=== PATIENT | female | born 1960 | race Caucasian/White ===

== ENCOUNTER 2021-04-05 12:59 | Inpatient (IN) ==
[2021-04-05] MEDS ORDERED: NS 1000 ML 1,000 ML IV ONE (13:06)
[2021-04-05] MEDS ORDERED: NS 1000 ML 1,000 ML ONE (13:12)
--- NOTE | 2021-04-05 13:12 | DR.URIAD ---
HPI Time Seen Time Seen by Provider: 04/05/21 13:14 Complaint Chief Complaint Doctors Comments: 61 y/o female, diagnosed with Covid last week, had worsening cough, dx'd with pneumonia. Is on azithromycin, inhaler. + h/o COPD. COVID-19 Coronavirus risk:travel/contact w/high risk person: No Has patient experienced Coronavirus symptoms: Yes Coronavirus symptoms experienced: Fever, Coughing and Shortness of Breath Reviewed Nurses Notes Reviewed: Yes Source History Provided: Patient Mode of Arrival Mode of Arrival: Ambulatory Context Recent Treated Infections: Pneumonia Quality Quality of Cough: Nonproductive Rhinorrhea: Clear Shortness of Breath: Moderate Associated Signs and Symptoms Other Signs and Symptoms: Cough, Diarrhea, Fever, Myalgias, Nausea and Shortness of Breath PMH Travel Risk Coronavirus risk:travel/contact w/high risk person: No Has patient experienced Coronavirus symptoms: No ROS Review of Systems Constitutional: Chills, Fever, Malaise and Weakness Eyes: No Symptoms Reported ENTM: No Symptoms Reported Respiratoy: Dry Cough and Short of Breath Cardiovascular: No Symptoms Reported and See HPI; negative Chest Pain Gastrointestinal/Abdominal: Diarrhea and Nausea Genitourinary: No Symptoms Reported Neurological: Weakness Musculoskeletal: Muscle Pain Integumentary: No Symptoms Reported Hematologic/Lymphatic: No Symptoms Reported Endocrine: No Symptoms Reported Psychiatric: No Symptoms Reported All Other Systems: Reviewed and Negative PE Vital Signs Vitals: Temperature 100.1 F Pulse Rate 94 Respiratory Rate 82 Blood Pressure 155/74 O2 Sat by Pulse Oximetry 90 General Limitations: No Limitations General Appearance: Alert, In No Apparent Distress and Other (+ frequent dry cough) Head Head Exam: Normal Inspection Eyes Eye exam: Normal Appearance ENT ENT Exam: Normal Exam and Mucous Membranes Moist TM/Canal Exam: Bilateral: Normal Nose Exam: Normal Nose Exam Mouth Exam: Normal Inspection Throat Exam: Normal Inspection Neck Neck Exam: Normal Inspection and Full ROM; negative Meningismus Chest Chest Inspection: Normal Inspection Respiratory Respiratory Exam: negative Accessory Muscle Use Respiratory Exam: Bilateral: Wheezing (expiratory) Cardiovascular Cardiovascular Exam: Regular Rate, Normal Rhythm, Tachycardia and Normal Heart Sounds Abdominal Exam Abdominal Exam: Normal Inspection Extremeties Extremities Exam: Normal Inspection and Full ROM; negative Edema Back Back Exam: Normal Inspection Neurologic Neurological Exam: Alert, Oriented X3 and CN II-XII Intact; negative Motor Sensory Deficit Psychiatric Psychiatric Exam: Normal Affect Skin Skin Exam: Warm and Dry MDM Differential Diagnosis Differential Diagnosis: Pneumonia (covid pneumonia) and URI COURSE Treatment Treatment: Pt with diagnosis of Covid last week, having worsening dyspnea. W/u initiated. ABG low - pO2 51, 88% on RA. Doing better on O2. + hypoxia, developing pneumonia. Recommend admission. Discussed with hospitalist, Dr. Davies. She accepts the admission. ROR Labs Reviewed Laboratory Results Reviewed?: Yes Result Diagrams: 04/05/21 13:22 04/05/21 13:22 Laboratory: WBC 4.2 X10^3/uL (3.6-10.0) 04/05/21 13:22 RBC 4.83 X10^6/uL (3.5-5.4) 04/05/21 13:22 Hgb 13.9 g/dL (12.0-16.0) 04/05/21 13:22 Hct 42.0 % (36.0-47.0) 04/05/21 13:22 MCV 87.1 fL (80.0-100.0) 04/05/21 13:22 MCH 28.8 pg (27.0-34.0) 04/05/21 13:22 MCHC 33.1 g/dL (33.0-35.0) 04/05/21 13:22 RDW 14.4 % (11.6-16.5) 04/05/21 13:22 Plt Count 227 X10^3/uL (150.0-450.0) 04/05/21 13:22 MPV 8.0 fL (7.4-11.0) 04/05/21 13:22 Neut % (Auto) 81.5 % (42.0-75.0) H 04/05/21 13:22 Lymph % (Auto) 14.9 % (21.0-51.0) L 04/05/21 13:22 [place] % (Auto) 3.5 % (0.0-13.0) 04/05/21 13:22 Eos % (Auto) 0.0 % (0.9-2.9) L 04/05/21 13:22 Baso % (Auto) 0.1 % (0.2-1.0) L 04/05/21 13:22 Neut # (Auto) 3.4 x10^3/uL (2.2-4.8) 04/05/21 13:22 Lymph # (Auto) 0.6 X10^3/uL (1.3-2.9) L 04/05/21 13:22 [place] # (Auto) 0.1 x10^3/uL (0.3-0.8) L 04/05/21 13:22 Eos # (Auto) 0.0 x10^3/uL (0.0-0.2) 04/05/21 13:22 Baso # (Auto) 0.0 X10^3/uL (0.0-0.1) 04/05/21 13:22 Absolute Nucleated RBC 0.1 /100WBC 04/05/21 13:22 Sample Site Right radial 04/05/21 13:29 ABG pH 7.470 (7.35-7.45) H 04/05/21 13:29 ABG pCO2 32.0 mmHg (35.0-45.0) L 04/05/21 13:29 ABG pO2 51.0 mmHg (80.0-100.0) L 04/05/21 13:29 ABG HCO3 23.3 mmol/L (22-26) 04/05/21 13:29 ABG O2 Saturation 88.0 % (90-100) L 04/05/21 13:29 ABG Base Excess 0.2 mmol/L (-2.0-2.0) 04/05/21 13:29 Ed Test Pos 04/05/21 13:29 A-a Gradient 59.0 mmHg 04/05/21 13:29 FiO2 21.0 04/05/21 13:29 Blood Gas Comments Tio well eb 04/05/21 13:29 Sodium 138 mmol/L (136-145) 04/05/21 13:22 Corrected Sodium 139 mmol/L (136-145) 04/05/21 13:22 Potassium 3.9 mmol/L (3.5-5.1) 04/05/21 13:22 Chloride 102 mmol/L (98-107) 04/05/21 13:22 Carbon Dioxide 22.2 mmol/L (21-32) 04/05/21 13:22 BUN 7 mg/dL (7-18) 04/05/21 13:22 Creatinine 0.89 mg/dL (0.55-1.02) 04/05/21 13:22 Est GFR (MDRD) Af Amer > 60 (>60) 04/05/21 13:22 Est GFR (MDRD) Non-Af > 60 (>60) 04/05/21 13:22 Glucose 123 mg/dL (65-99) H 04/05/21 13:22 Lactic Acid 1.2 mmol/L (0.4-2.0) 04/05/21 13:22 Calcium 7.7 mg/dL (8.5-10.1) L 04/05/21 13:22 Corrected Calcium 8.7 mg/dL (8.5-10.1) 04/05/21 13:22 Total Bilirubin 0.30 mg/dL (0.2-1.0) 04/05/21 13:22 AST 134 Units/L (15-37) H 04/05/21 13:22 ALT 133 Units/L (12-78) H 04/05/21 13:22 Alkaline Phosphatase 53 Units/L (46-116) 04/05/21 13:22 Creatine Kinase 169 Units/L (26-192) 04/05/21 13:22 CK-MB (CK-2) 1.1 ng/mL (0-4.0) 04/05/21 13:22 CK/CKMB % Calc 0.7 % (<4) 04/05/21 13:22 Troponin I < 0.02 ng/mL (0-1.5) 04/05/21 13:22 Total Protein 6.5 g/dL (6.4-8.2) 04/05/21 13:22 Albumin 2.8 g/dL (3.4-5.0) L 04/05/21 13:22 Globulin 3.7 g/dL (2.5-4.5) 04/05/21 13:22 Albumin/Globulin Ratio 0.8 Ratio (1.1-2.1) L 04/05/21 13:22 Lipase 368 Units/L (73-393) 04/05/21 13:22 Specimen Type Clean catch urine 04/05/21 13:24 Urine Color Straw (YELLOW) 04/05/21 13:24 Urine Appearance Clear (CLEAR) 04/05/21 13:24 Urine pH 7.0 (5.0 - 8.0) 04/05/21 13:24 Ur Specific [place] 1.010 (1.000-1.030) 04/05/21 13:24 Urine Protein 1+ (NEGATIVE) 04/05/21 13:24 Urine Glucose (UA) Negative (NEGATIVE) 04/05/21 13:24 Urine Ketones Negative (NEGATIVE) 04/05/21 13:24 Urine Occult Blood 1+ (NEGATIVE) 04/05/21 13:24 Urine Nitrite Negative (NEGATIVE) 04/05/21 13:24 Urine Bilirubin Negative (NEGATIVE) 04/05/21 13:24 Urine Urobilinogen Normal (NORMAL) 04/05/21 13:24 Ur Leukocyte Esterase Negative (NEGATIVE) 04/05/21 13:24 Urine RBC 5-10 /HPF (0-3) A 04/05/21 13:24 Urine WBC 0-2 /HPF (0-5) 04/05/21 13:24 Ur Squamous Epith Cells Few /HPF (NEGATIVE) 04/05/21 13:24 Amorphous Sediment Trace /HPF (NEGATIVE) 04/05/21 13:24 Urine Bacteria Trace /HPF (NEGATIVE) 04/05/21 13:24 Ur Culture Indicated? No/not indicated 04/05/21 13:24 SARS-CoV-2 (PCR) Positive (NEGATIVE) A 04/05/21 13:45 Influenza Type A (PCR) Negative (NEGATIVE) 04/05/21 13:45 Influenza Type B (PCR) Negative (NEGATIVE) 04/05/21 13:45 RSV (PCR) Negative (NEGATIVE) 04/05/21 13:45 SARS CoV-2 RNA Rapid OLYA Positive (NEGATIVE) A 04/05/21 13:24 EKG Rate: 78 [place]: Normal Rhythm: NSR Block: None Hypertrophy: None ST: Nonsp Opioid Opioid Risk Tool Age (Jose J box if 16-45): No History of Preadolescent Sexual Abuse: No Total: 0 Total Score Risk Category: Low Risk Copyright: Zak DANIELSON predicting aberrant behaviors Diagnosis Discharge Problem: Pneumonia due to COVID-19 virus, Hypoxia
[2021-04-05 13:35] LABS: ABG ALLEN TEST POS; ABG BASE EXCESS 0.2 mmol/L (-2.0-2.0); ABG HCO3 23.3 mmol/L (22-26)
[2021-04-05 13:50] LABS: BILIRUBIN,URINE NEGATIVE (NEGATIVE); BLOOD/HEMOGLOBIN,URINE 1+ (NEGATIVE); GLUCOSE, URINE NEGATIVE (NEGATIVE); KETONES,URINE NEGATIVE (NEGATIVE); LEUKOCYTE ESTERASE ,URINE NEGATIVE (NEGATIVE); NITRITES,URINE NEGATIVE (NEGATIVE); PROTEIN,URINE 1+ (NEGATIVE); UROBILINOGEN,URINE NORMAL (NORMAL)
--- NOTE | 2021-04-05 13:59 | RAD ---
HISTORYCOUGH, DYSPNEA, COVID POSITIVE X 7 DAYS AGO HTN, HYSTERECTOMYSTUDYCHEST, 1 VIEWCOMPARISONNone available.FINDINGSThe trachea is midline. The cardiac silhouette is unremarkable. The lungs demonstrate diffuse, patchy, airspace, ground-glass, and interstitial disease seen throughout the lung hope which would be compatible with an active COVID-19 infection/pneumonia on this exam. The bony thorax is unremarkable.IMPRESSIONChest findings of an active and diffuse COVID-19 infection/pneumonia.Electronically signed by: AYDEN MARTINEZ III (Apr 05, 2021 13:58:07)
[2021-04-05 14:03] LABS: AMORPHOUS SEDIMENT,UR TRACE /HPF (NEGATIVE); APPEARANCE,URINE CLEAR (CLEAR); BACTERIA,URINE TRACE /HPF (NEGATIVE); COLOR,URINE STRAW (YELLOW); SQUAMOUS EPITHELIAL CELL,UR FEW /HPF (NEGATIVE)
[2021-04-05 14:04] LABS: BASOPHILS % (AUTO) 0.1 % (0.2-1.0); HEMOGLOBIN 13.9 g/dL (12.0-16.0); LYMPHOCYTES # (AUTO) 0.6 X10^3/uL (1.3-2.9); LYMPHOCYTES % (AUTO) 14.9 % (21.0-51.0); MEAN CORPUSCULAR HEMOGLOBIN 28.8 pg (27.0-34.0); MEAN CORPUSCULAR HGB CONC 33.1 g/dL (33.0-35.0); MEAN CORPUSCULAR VOLUME 87.1 fL (80.0-100.0); MONOCYTES # (AUTO) 0.1 x10^3/uL (0.3-0.8); MONOCYTES % (AUTO) 3.5 % (0.0-13.0); NEUTROPHILS # (AUTO) 3.4 x10^3/uL (2.2-4.8); NEUTROPHILS % (AUTO) 81.5 % (42.0-75.0); PLATELET COUNT 227 X10^3/uL (150.0-450.0); RED BLOOD COUNT 4.83 X10^6/uL (3.5-5.4); RED CELL DISTRIBUTION WIDTH 14.4 % (11.6-16.5); WHITE BLOOD COUNT 4.2 X10^3/uL (3.6-10.0)
[2021-04-05 14:22] LABS: BLOOD UREA NITROGEN 7 mg/dL (7-18); CALCIUM 7.7 mg/dL (8.5-10.1); CARBON DIOXIDE 22.2 mmol/L (21-32); CHLORIDE 102 mmol/L (98-107); COR NA(FOR HYPERGLY) 139 mmol/L (136-145); CREATININE 0.89 mg/dL (0.55-1.02); SODIUM 138 mmol/L (136-145); eGFR NON BLACK RACES > 60 (>60)
[2021-04-05 14:25] LABS: LACTIC ACID 1.2 mmol/L (0.4-2.0)
[2021-04-05 15:03] LABS: CKMB % 0.7 % (<4); CREATINE KINASE 169 Units/L (26-192); CREATINE KINASE MB 1.1 ng/mL (0-4.0)
[2021-04-05 15:04] LABS: LIPASE 368 Units/L (73-393); TROPONIN I < 0.02 ng/mL (0-1.5)
[2021-04-05 15:29] LABS: ALANINE AMINOTRANSFERASE 133 Units/L (12-78); ALBUMIN 2.8 g/dL (3.4-5.0); ALKALINE PHOSPHATASE 53 Units/L (46-116); ASPARTATE AMINO TRANSFERASE 134 Units/L (15-37); COR CA(FOR HYPOALB) 8.7 mg/dL (8.5-10.1); TOTAL PROTEIN 6.5 g/dL (6.4-8.2)
[2021-04-05] MEDS ORDERED: ZOFRAN INJ 4 MG VIAL IVP ONE (15:41)
[2021-04-05] MEDS ORDERED: ZOFRAN INJ 4 MG VIAL ONE (16:10)
[2021-04-05] MEDS ORDERED: REMDESIVIR 200 MG in NS 250 ML IV 250 ML IV ONE (17:11)
[2021-04-05] MEDS ORDERED: REMDESIVIR IV ONE ×2 (17:23→17:25)
[2021-04-05] MEDS ORDERED: NS 250 ML IV 250 ML IV ONE (17:25)
[2021-04-05] MEDS ORDERED: PHARMACY CONSULT - IVERMECTIN XX SCH (18:00)
[2021-04-05] MEDS: SOLU-Medrol 40 MG VIAL IVP SCH (20:47)
[2021-04-05] MEDS ORDERED: TYLENOL 325 MG TAB PO ONE (20:54)
[2021-04-05] MEDS ORDERED: THIAMINE HCL INJ IVP SCH (21:00)
[2021-04-05] MEDS ORDERED: MELATONIN PO SCH (21:00)
[2021-04-05] MEDS ORDERED: IVERMECTIN PO SCH (21:00)
[2021-04-05] MEDS: BROVANA IN SCH (21:06)
[2021-04-05] MEDS: PULMICORT NEB TX 0.5 MG NEB SCH (21:16)
[2021-04-05] MEDS: ZOSYN VIAL 2.25 GRAMS 2.25 G in NS 100 ML IV + SPIKE MINIBAG* 100 ML IV SCH ×2 (21:20→21:30)
[2021-04-05] MEDS: NS 1000 ML 1,000 ML IV SCH (21:20)
[2021-04-05] MEDS: ASCORBIC ACID INJ MULTI-DOSE VIAL 1,500 MG in NS 100 ML IV 100 ML IV SCH (21:21)
[2021-04-05] MEDS: TYLENOL 325 MG TAB PO PRN (21:21)
[2021-04-05] MEDS: LOVENOX INJ 30 MG SYR SC SCH (21:22)
[2021-04-05] MEDS: TESSALON PERLES PO PRN (21:23)
[2021-04-05] MEDS: ZINC SULFATE PO SCH (21:23)
[2021-04-05] MEDS: PEPCID TAB 40 MG PO SCH (21:23)
[2021-04-05] MEDS: VENTOLIN or PROAIR HFA IN SCH (22:19)
[2021-04-06] MEDS: ASCORBIC ACID INJ MULTI-DOSE VIAL 1,500 MG in NS 100 ML IV 100 ML IV SCH ×4 (03:15→20:17)
[2021-04-06] MEDS: SOLU-Medrol 40 MG VIAL IVP SCH (04:14)
[2021-04-06] MEDS: ZOSYN VIAL 2.25 GRAMS 2.25 G in NS 100 ML IV + SPIKE MINIBAG* 100 ML IV SCH ×3 (06:10→21:10)
[2021-04-06 06:34] LABS: BASOPHILS % (AUTO) 0 % (0.2-1.0); HEMATOCRIT 43.6 % (36.0-47.0); HEMOGLOBIN 14.4 g/dL (12.0-16.0); LYMPHOCYTES % (AUTO) 17.8 % (21.0-51.0); MEAN CORPUSCULAR HEMOGLOBIN 28.7 pg (27.0-34.0); MEAN CORPUSCULAR VOLUME 86.9 fL (80.0-100.0); MEAN PLATELET VOLUME 7.7 fL (7.4-11.0); MONOCYTES # (AUTO) 0.3 x10^3/uL (0.3-0.8); MONOCYTES % (AUTO) 5.3 % (0.0-13.0); NEUTROPHILS # (AUTO) 4.3 x10^3/uL (2.2-4.8); NEUTROPHILS % (AUTO) 76.9 % (42.0-75.0); PLATELET COUNT 240 X10^3/uL (150.0-450.0); RED BLOOD COUNT 5.02 X10^6/uL (3.5-5.4); RED CELL DISTRIBUTION WIDTH 14.7 % (11.6-16.5); WHITE BLOOD COUNT 5.6 X10^3/uL (3.6-10.0)
[2021-04-06 06:45] LABS: ALANINE AMINOTRANSFERASE 107 Units/L (12-78); ALBUMIN 2.4 g/dL (3.4-5.0); ALKALINE PHOSPHATASE 49 Units/L (46-116); ASPARTATE AMINO TRANSFERASE 121 Units/L (15-37); BLOOD UREA NITROGEN 8 mg/dL (7-18); CALCIUM 7.3 mg/dL (8.5-10.1); CARBON DIOXIDE 19.6 mmol/L (21-32); CHLORIDE 107 mmol/L (98-107); COR CA(FOR HYPOALB) 8.6 mg/dL (8.5-10.1); CREATININE 0.73 mg/dL (0.55-1.02); SODIUM 140 mmol/L (136-145); TOTAL PROTEIN 6.2 g/dL (6.4-8.2); TROPONIN I 0.02 ng/mL (0-1.5); eGFR NON BLACK RACES > 60 (>60)
[2021-04-06] MEDS: ZOFRAN TAB 4 MG PO PRN ×2 (07:45→15:00)
[2021-04-06] MEDS ORDERED: VITAMIN A PO SCH (09:00)
[2021-04-06] MEDS ORDERED: VITAMIN D (1.25MG) PO SCH (09:00)
[2021-04-06] MEDS ORDERED: LIPITOR TAB 80 MG PO SCH (09:00)
[2021-04-06] MEDS ORDERED: TRICOR TAB 160 MG PO SCH (09:00)
[2021-04-06] MEDS: BROVANA IN SCH ×2 (09:17→23:22)
[2021-04-06] MEDS: PULMICORT NEB TX 0.5 MG NEB SCH ×2 (09:26→23:22)
[2021-04-06] MEDS: VENTOLIN or PROAIR HFA IN SCH ×4 (09:32→23:22)
[2021-04-06] MEDS ORDERED: ZESTRIL TAB 20 MG ONE (09:33)
--- NOTE | 2021-04-06 09:36 | DR.H&P ---
H&P History & Physical for Day of: H&P Date: 04/06/21 Chief Complaint Chief Complaint: SOB, weakness, diarrhea Allergies Allergies Allergy/AdvReac Type Severity Reaction Status Date / Time cortisone Allergy Verified 04/05/21 13:11 meperidine [From Demerol] Allergy Verified 04/05/21 13:11 phenobarbital Allergy Verified 04/05/21 13:11 History of Present Illness History of Present Illness: Ms. Wyatt is a 61y/o female with a PMH of HTN presented with worsening dyspnea, cough and generalized weakness. Patient tested positive for COVID last week but continued to get worse. She reports having N/V/D and poor oral intake. She also reports fever and chills. Denies prev hx of covid infection, unvaccinated. She reports exposure at work. She was on 3L NC but sats were in the 70s so increased O2 to 5L at sats improved to high 80s. Patient had just gotten back in bed after using the bathroom. ER work up - WBC 5.6 BUN/Cr: 8/0.73 Glucose 104 Trop x 2 (-) Elevated d-dimer AST/ALT: 121/107 - ABG 7.47/32/51/23 sats 88% on RA - COVID-19: positive - CXR: suggestive of covid pneumonia Plan: will get a CTA to rule out PE. Continue ICU protocol for COVID-19, continue telemetry. Continue Zosyn and Remdesivir. Patient refused solumedrol due to being allergic to cortisone. Resume home medications. Check stool studies to rule out infection. Start gentle hydration. Continue vitamin support and lovenox. Wean O2 as tolerated to keep sats > 92%. Monitor AM labs/imaging. Time spent for clinical assessment, reviewing labs/imaging, physical exam, dec ision making and documentation greater than 75 mins. Past Medical History Past Medical History: Depression and Hypertension Past Surgical History Surgical History: Hysterectomy and Other Family History Family Medical History: Diabetes Mellitus, Cancer, Coronary Artery Disease and Hypertension Social History Does patient currently use any type of tobacco product: No Have you used tobacco products in the last 12 months: No Type of Tobacco Use: Cigarettes How many years tobacco product used: 20 Does any household member use tobacco: No Alcohol Use: None Drug Use: None Prescription drug monitoring program results: PDMP reviewed and no concerns identified Medications Home Medications: cortisone Allergy (Verified 04/05/21 13:11) meperidine [From Demerol] Allergy (Verified 04/05/21 13:11) phenobarbital Allergy (Verified 04/05/21 13:11) CONTINUE taking the following medications albuterol sulfate 2 puff INHALATION QID 04/05/21 [History] aspirin 81 mg PO DAILY 04/05/21 [History] azithromycin 250 mg PO DAILY 04/05/21 [History] benzonatate 100 mg PO TID PRN 04/05/21 [History] ezetimibe 10 mg PO DAILY 04/05/21 [History] levocetirizine 5 mg PO DAILY 04/05/21 [History] lisinopril 20 mg PO DAILY 04/05/21 [History] ondansetron 4 mg PO QID PRN 04/05/21 [History] paroxetine HCl mg PO 04/05/21 [History] promethazine-DM ml 04/05/21 [History] Labs Result Diagrams: 04/06/21 06:16 04/06/21 06:16 Labs: Laboratory WBC 5.6 X10^3/uL (3.6-10.0) 04/06/21 06:16 RBC 5.02 X10^6/uL (3.5-5.4) 04/06/21 06:16 Hgb 14.4 g/dL (12.0-16.0) 04/06/21 06:16 Hct 43.6 % (36.0-47.0) 04/06/21 06:16 MCV 86.9 fL (80.0-100.0) 04/06/21 06:16 MCH 28.7 pg (27.0-34.0) 04/06/21 06:16 MCHC 33.0 g/dL (33.0-35.0) 04/06/21 06:16 RDW 14.7 % (11.6-16.5) 04/06/21 06:16 Plt Count 240 X10^3/uL (150.0-450.0) 04/06/21 06:16 MPV 7.7 fL (7.4-11.0) 04/06/21 06:16 Neut % (Auto) 76.9 % (42.0-75.0) H 04/06/21 06:16 Lymph % (Auto) 17.8 % (21.0-51.0) L 04/06/21 06:16 [place] % (Auto) 5.3 % (0.0-13.0) 04/06/21 06:16 Eos % (Auto) 0.0 % (0.9-2.9) L 04/06/21 06:16 Baso % (Auto) 0 % (0.2-1.0) L 04/06/21 06:16 Neut # (Auto) 4.3 x10^3/uL (2.2-4.8) 04/06/21 06:16 Lymph # (Auto) 1.0 X10^3/uL (1.3-2.9) L 04/06/21 06:16 [place] # (Auto) 0.3 x10^3/uL (0.3-0.8) 04/06/21 06:16 Eos # (Auto) 0.0 x10^3/uL (0.0-0.2) 04/06/21 06:16 Baso # (Auto) 0.0 X10^3/uL (0.0-0.1) 04/06/21 06:16 Absolute Nucleated RBC 0.0 /100WBC 04/06/21 06:16 D-Dimer 1.17 ug/ml (0.0-0.57) H* 04/06/21 08:28 Sample Site Right radial 04/05/21 13:29 ABG pH 7.470 (7.35-7.45) H 04/05/21 13:29 ABG pCO2 32.0 mmHg (35.0-45.0) L 04/05/21 13:29 ABG pO2 51.0 mmHg (80.0-100.0) L 04/05/21 13:29 ABG HCO3 23.3 mmol/L (22-26) 04/05/21 13:29 ABG O2 Saturation 88.0 % (90-100) L 04/05/21 13:29 ABG Base Excess 0.2 mmol/L (-2.0-2.0) 04/05/21 13:29 Ed Test Pos 04/05/21 13:29 A-a Gradient 59.0 mmHg 04/05/21 13:29 FiO2 21.0 04/05/21 13:29 Blood Gas Comments Tio well eb 04/05/21 13:29 Sodium 140 mmol/L (136-145) 04/06/21 06:16 Corrected Sodium TNP 04/06/21 06:16 Potassium 3.8 mmol/L (3.5-5.1) 04/06/21 06:16 Chloride 107 mmol/L (98-107) 04/06/21 06:16 Carbon Dioxide 19.6 mmol/L (21-32) L 04/06/21 06:16 BUN 8 mg/dL (7-18) 04/06/21 06:16 Creatinine 0.73 mg/dL (0.55-1.02) 04/06/21 06:16 Est GFR (MDRD) Af Amer > 60 (>60) 04/06/21 06:16 Est GFR (MDRD) Non-Af > 60 (>60) 04/06/21 06:16 Glucose 104 mg/dL (65-99) H 04/06/21 06:16 Lactic Acid 1.2 mmol/L (0.4-2.0) 04/05/21 13:22 Calcium 7.3 mg/dL (8.5-10.1) L 04/06/21 06:16 Corrected Calcium 8.6 mg/dL (8.5-10.1) 04/06/21 06:16 Total Bilirubin 0.30 mg/dL (0.2-1.0) 04/06/21 06:16 AST 121 Units/L (15-37) H 04/06/21 06:16 ALT 107 Units/L (12-78) H 04/06/21 06:16 Alkaline Phosphatase 49 Units/L (46-116) 04/06/21 06:16 Creatine Kinase 169 Units/L (26-192) 04/05/21 13:22 CK-MB (CK-2) 1.1 ng/mL (0-4.0) 04/05/21 13:22 CK/CKMB % Calc 0.7 % (<4) 04/05/21 13:22 Troponin I 0.02 ng/mL (0-1.5) 04/06/21 06:16 Total Protein 6.2 g/dL (6.4-8.2) L 04/06/21 06:16 Albumin 2.4 g/dL (3.4-5.0) L 04/06/21 06:16 Globulin 3.8 g/dL (2.5-4.5) 04/06/21 06:16 Albumin/Globulin Ratio 0.6 Ratio (1.1-2.1) L 04/06/21 06:16 Lipase 368 Units/L (73-393) 04/05/21 13:22 Specimen Type Clean catch urine 04/05/21 13:24 Urine Color Straw (YELLOW) 04/05/21 13:24 Urine Appearance Clear (CLEAR) 04/05/21 13:24 Urine pH 7.0 (5.0 - 8.0) 04/05/21 13:24 Ur Specific [place] 1.010 (1.000-1.030) 04/05/21 13:24 Urine Protein 1+ (NEGATIVE) 04/05/21 13:24 Urine Glucose (UA) Negative (NEGATIVE) 04/05/21 13:24 Urine Ketones Negative (NEGATIVE) 04/05/21 13:24 Urine Occult Blood 1+ (NEGATIVE) 04/05/21 13:24 Urine Nitrite Negative (NEGATIVE) 04/05/21 13:24 Urine Bilirubin Negative (NEGATIVE) 04/05/21 13:24 Urine Urobilinogen Normal (NORMAL) 04/05/21 13:24 Ur Leukocyte Esterase Negative (NEGATIVE) 04/05/21 13:24 Urine RBC 5-10 /HPF (0-3) A 04/05/21 13:24 Urine WBC 0-2 /HPF (0-5) 04/05/21 13:24 Ur Squamous Epith Cells Few /HPF (NEGATIVE) 04/05/21 13:24 Amorphous Sediment Trace /HPF (NEGATIVE) 04/05/21 13:24 Urine Bacteria Trace /HPF (NEGATIVE) 04/05/21 13:24 Ur Culture Indicated? No/not indicated 04/05/21 13:24 SARS-CoV-2 (PCR) Positive (NEGATIVE) A 04/05/21 13:45 Influenza Type A (PCR) Negative (NEGATIVE) 04/05/21 13:45 Influenza Type B (PCR) Negative (NEGATIVE) 04/05/21 13:45 RSV (PCR) Negative (NEGATIVE) 04/05/21 13:45 SARS CoV-2 RNA Rapid OLYA Positive (NEGATIVE) A 04/05/21 13:24 Review of Systems Constitutional: Fever, Chills, Weakness and Malaise Eyes: No Symptoms Reported ENT: No Symptoms Reported Respiratory: Cough, Shortness of Breath and SOB with Excertion Cardiovascular: No Symptoms Reported Gastrointestinal: Nausea, Vomiting and Diarrhea Genitourinary: No Symptoms Reported Musculoskeletal: No Symptoms Reported Skin: No Symptoms Reported Neurological: No Symptoms Reported Physical Exam Vital Signs: Temperature 99.1 F Pulse Rate [Right] 88 Pulse Rate 77 Respiratory Rate 22 Blood Pressure [Right Arm] 177/82 Blood Pressure 155/75 O2 Sat by Pulse Oximetry 90 Oriented: Normal Eyes: Normal Ear: Normal Nose: Normal Throat: Dry Respiratory: Diminished Throughout Cardiovascular: Tachycardia Auscultation: Bowel Sounds: Normal Palpation: Normal Tenderness: Normal Skin: Decreased [place] Musculoskeletal: Normal Psychiatric: Anxiety Mood Description: Anxious Affect: Normal Speech Pattern: Clear and Appropriate Assessment/Plan (1) Pneumonia due to COVID-19 virus: Status: Acute (2) Acute respiratory failure with hypoxia: Status: Acute (3) Diarrhea: Qualifiers: Diarrhea type: unspecified type Qualified Code(s): R19.7 - Diarrhea, unspecified Status: Acute (4) HTN (hypertension): Qualifiers: Hypertension type: primary hypertension Qualified Code(s): I10 - Essential (primary) hypertension Status: Acute Review H&P Reviewed: Yes Patient was examined?: Yes
--- NOTE | 2021-04-06 10:21 | CT ---
HISTORYCOVID-19 pneumonia, hypoxia, elevated D-dimerSTUDYCTA chest with contrast for pulmonary embolusTechnique: Axial post-contrast images with coronal, sagittal, and 3 dimensional maximum intensity projection images obtained and evaluated. Dose reduction procedures were used with mA/kv adjusted for body size.COMPARISONNoneFINDINGSThere is no evidence for acute pulmonary thromboembolic disease. Examination of the mediastinum demonstrated enlargement of the left thyroid lobe with a possible mass or multiple nodules present. Substernal extension is present. Sonographic evaluation is recommended. This could be obtained on a nonemergent basis. No mediastinal or hilar adenopathy of significance is identified. No significant aortic abnormality is identified. No pleural effusions are identified. No chest wall or axillary abnormality is identified. Those portions of the upper abdominal organs visualized were within normal limits to the limitations of an early arterial injection phase. Examination of the lung hope demonstrated diffuse bilateral central and peripheral ground-glass infiltrates with some areas of peribronchial consolidation and areas of subpleural sparing. There is diffuse interlobular septal thickening. Findings involve all lung hope. Findings are consistent with multifocal pneumonia which could be bacterial, viral, or atypical viral in origin. COVID lung involvement can have this appearance.IMPRESSIONNo evidence for acute pulmonary thromboembolic diseaseDiffuse involvement of the upper and lower lung hope bilaterally with ground-glass infiltrates, areas of peribronchial consolidation and interlobular septal thickening most consistent with multifocal pneumonia which could be bacterial, viral, or atypical viral in origin. COVID-19 lung involvement can have this appearanceElectronically signed by: ERROL MATHIS (Apr 06, 2021 10:19:56)
[2021-04-06] MEDS: LOVENOX INJ 30 MG SYR SC SCH ×2 (10:30→20:44)
[2021-04-06] MEDS: ASPIRIN EC 81 MG PO SCH (10:30)
[2021-04-06] MEDS: PEPCID TAB 40 MG PO SCH ×2 (10:31→20:18)
[2021-04-06] MEDS: REMDESIVIR 100 MG in NS 250 ML IV 250 ML IV SCH (10:31)
[2021-04-06] MEDS: ZINC SULFATE PO SCH ×2 (10:32→20:19)
[2021-04-06] MEDS: ZESTRIL TAB 20 MG PO SCH (10:32)
[2021-04-06] MEDS: ZETIA TAB 10 MG PO SCH (10:32)
[2021-04-06] MEDS: TESSALON PERLES PO PRN ×2 (10:34→20:21)
[2021-04-06] MEDS ORDERED: NS 250 ML IV 250 ML IV ONE (14:36)
[2021-04-06] MEDS: PAXIL PO SCH (15:51)
[2021-04-06] MEDS ORDERED: BUTT CREAM (COMPOUND) ONE (16:33)
[2021-04-06] MEDS: NS 1000 ML 1,000 ML IV SCH (18:07)
[2021-04-06] MEDS: PHENERGAN INJ 25 MG IM PRN (19:00)
[2021-04-06] MEDS: TYLENOL 325 MG TAB PO PRN (22:54)
[2021-04-06 23:22] LABS: ABG ALLEN TEST POS; ABG BASE EXCESS 0.9 mmol/L (-2.0-2.0); ABG HCO3 23.8 mmol/L (22-26)
[2021-04-07] MEDS: BUTT CREAM (COMPOUND) TOP PRN ×2 (00:17→10:46)
[2021-04-07] MEDS: ASCORBIC ACID INJ MULTI-DOSE VIAL 1,500 MG in NS 100 ML IV 100 ML IV SCH ×4 (02:36→20:50)
[2021-04-07] MEDS: ZOSYN VIAL 2.25 GRAMS 2.25 G in NS 100 ML IV + SPIKE MINIBAG* 100 ML IV SCH ×3 (05:02→23:00)
[2021-04-07] MEDS: NS 1000 ML 1,000 ML IV SCH ×2 (05:03→18:07)
[2021-04-07 05:28] LABS: BASOPHILS % (AUTO) 0.2 % (0.2-1.0); HEMATOCRIT 40.5 % (36.0-47.0); HEMOGLOBIN 13.7 g/dL (12.0-16.0); LYMPHOCYTES # (AUTO) 1.1 X10^3/uL (1.3-2.9); LYMPHOCYTES % (AUTO) 17.7 % (21.0-51.0); MEAN CORPUSCULAR HEMOGLOBIN 29.4 pg (27.0-34.0); MEAN CORPUSCULAR HGB CONC 33.8 g/dL (33.0-35.0); MEAN CORPUSCULAR VOLUME 86.9 fL (80.0-100.0); MEAN PLATELET VOLUME 7.7 fL (7.4-11.0); MONOCYTES # (AUTO) 0.3 x10^3/uL (0.3-0.8); MONOCYTES % (AUTO) 5.3 % (0.0-13.0); NEUTROPHILS # (AUTO) 4.6 x10^3/uL (2.2-4.8); NEUTROPHILS % (AUTO) 76.8 % (42.0-75.0); PLATELET COUNT 289 X10^3/uL (150.0-450.0); RED BLOOD COUNT 4.66 X10^6/uL (3.5-5.4); RED CELL DISTRIBUTION WIDTH 14.3 % (11.6-16.5)
[2021-04-07 05:52] LABS: ALANINE AMINOTRANSFERASE 89 Units/L (12-78); ALBUMIN 2.2 g/dL (3.4-5.0); ALKALINE PHOSPHATASE 48 Units/L (46-116); ASPARTATE AMINO TRANSFERASE 115 Units/L (15-37); BLOOD UREA NITROGEN 9 mg/dL (7-18); CALCIUM 7.1 mg/dL (8.5-10.1); CARBON DIOXIDE 24.6 mmol/L (21-32); CHLORIDE 108 mmol/L (98-107); COR CA(FOR HYPOALB) 8.5 mg/dL (8.5-10.1); COR NA(FOR HYPERGLY) 143 mmol/L (136-145); CREATININE 0.69 mg/dL (0.55-1.02); SODIUM 143 mmol/L (136-145); TOTAL PROTEIN 5.7 g/dL (6.4-8.2); eGFR NON BLACK RACES > 60 (>60)
--- NOTE | 2021-04-07 06:49 | RAD ---
HISTORYFollow-up COVID-19, hypoxiaSTUDYChest AP [id number] chest x-ray, CTA chest 04/06/2021FINDINGSHeart size is normal. The lungs are somewhat better inflated than on the prior examination. Diffuse bilateral ground-glass and alveolar infiltrates are again identified having increased when compared to the prior examination. No pleural effusions are identified. Bony thorax is unremarkable.IMPRESSIONIncreasing bilateral ground-glass and alveolar infiltrates when compared to the prior examinationElectronically signed by: ERROL MATHIS (Apr 07, 2021 06:47:07)
[2021-04-07] MEDS ORDERED: K-RIDER 10 MEQ/NS 100 ML 10 MEQ/100 ML BAG IV PRN (06:54)
[2021-04-07] MEDS ORDERED: MAGNESIUM SULFATE 1 GRAM/100 mL PREMIX 1 GM/100 ML BAG IV PRN (06:54)
[2021-04-07] MEDS ORDERED: MICRO K EXTEN CAP 10 MEQ PO PRN (06:54)
[2021-04-07] MEDS ORDERED: POTASSIUM CHL 60 MEQ/NS 0.45% 500 ML IV PRN (06:54)
[2021-04-07] MEDS ORDERED: POTASSIUM CHL 40 MEQ/NS 0.45% 500 ML IV PRN (06:54)
[2021-04-07] MEDS ORDERED: POTASSIUM CHLORIDE LIQ 20 MEQ UDC PO PRN (06:54)
[2021-04-07] MEDS ORDERED: KLOR-CON PO PRN (06:54)
[2021-04-07] MEDS ORDERED: MORPHINE SULFATE INJ 2 MG INJ IVP ONE (08:33)
[2021-04-07] MEDS ORDERED: SOLU-Medrol 40 MG VIAL IVP ONE (09:01)
[2021-04-07] MEDS ORDERED: ZITHROMAX INJ 500 MG VIAL 500 MG in NS 250 ML IV 250 ML IV SCH (09:02)
[2021-04-07] MEDS ORDERED: ZESTRIL TAB 20 MG ONE (09:23)
--- NOTE | 2021-04-07 09:24 | PCM.PROG ---
Progress Note Progress Note for Day of Date of Exam: 04/07/21 Subjective Subjective: Patient seen at bedside, overnight patient had to be switched over to Bipap due to sats staying in the 80s and patient being non-compliant with HHFNC. She is currently on FiO2 75% with sats > 90%. She appears anxious on exam. She has not been eating much due to nausea and diarrhea. She had a temp of 101.3 last night. Labs: WBC 6 Hgb 13.7 K: 3.3 BUN/Cr: 9/0.6 AST/ALT: 115/89 ABG 7.48/32/72/32 95% on FiO2 75% CXR: increase in bilateral infiltrates CTA: negative for PE, b/l patchy opacities, also showed a thyroid mass/cyst, non-emergent Thyroid U/S recommended Plan: Wean off BiPAP as tolerated and switch back to HHFNC, discussed compliance with patient. Unable to get stool studies as the sample as been mixed with urine. Discussed cortisone allergy with patient and she stated it happened with cortisone injection where she had some swelling in her joint. Denies any prev allergic reaction to prednisone or Solumedrol. Will give Solumedrol 40 mg IV once and monitor. Continue Remdesivir and Zosyn. Will add azithromycin. Continue vitamin support. Continue nebs, pulmicort and IS. Will give one dose of morphine for anxiety. Continue home medication. Patient remains in critical condition. Monitor resp status closely. Follow cultures and stool studies. Replace K as per protocol. Monitor AM labs and imaging. Time spent for clinical assessment, reviewing labs/imaging, physical exam, decision making and documentation greater than 75 mins. Past Medical Family Social History Past Med/Fam/Surg Hx: No changes since H&P Allergies: Allergies cortisone Allergy (Verified 04/05/21 13:11) meperidine [From Demerol] Allergy (Verified 04/05/21 13:11) phenobarbital Allergy (Verified 04/05/21 13:11) Review of Systems ROS: No change since H&P Vital Signs and I&O's Vital Signs: Temperature 98.3 F Pulse Rate [Right] 88 Pulse Rate 69 Respiratory Rate 24 Blood Pressure [Right Arm] 177/82 Blood Pressure 170/77 O2 Sat by Pulse Oximetry 99 Intake and Output: Intake & Output 04/04/21 04/05/21 04/06/21 04/07/21 23:59 23:59 23:59 23:59 Intake Total 1358 / 1358 3535 / 3535 525 / 525 Balance 1358 / 1358 3535 / 3535 525 / 525 Physical Exam Oriented: Normal Eyes: Normal Ear: Normal Nose: Normal Throat: Dry Respiratory: Generalized, Diminished and Rhonchi Cardiovascular: Tachycardia Auscultation: Bowel Sounds: Normal Tenderness: Normal Skin: Decreased Turgur Musculoskeletal: Normal Psychiatric: Anxiety Mood Description: Anxious Affect: Anxious Speech Pattern: Artificially Ventilated (on BiPAP ) Laboratory and Diagnostics Result Diagrams: 04/07/21 04:48 04/07/21 04:48 Labs: 04/05/21 13:15 Blood Blood Culture - Preliminary 04/05/21 13:22 Blood Blood Culture - Preliminary Laboratory WBC 6.0 X10^3/uL (3.6-10.0) 04/07/21 04:48 RBC 4.66 X10^6/uL (3.5-5.4) 04/07/21 04:48 Hgb 13.7 g/dL (12.0-16.0) 04/07/21 04:48 Hct 40.5 % (36.0-47.0) 04/07/21 04:48 MCV 86.9 fL (80.0-100.0) 04/07/21 04:48 MCH 29.4 pg (27.0-34.0) 04/07/21 04:48 MCHC 33.8 g/dL (33.0-35.0) 04/07/21 04:48 RDW 14.3 % (11.6-16.5) 04/07/21 04:48 Plt Count 289 X10^3/uL (150.0-450.0) 04/07/21 04:48 MPV 7.7 fL (7.4-11.0) 04/07/21 04:48 Neut % (Auto) 76.8 % (42.0-75.0) H 04/07/21 04:48 Lymph % (Auto) 17.7 % (21.0-51.0) L 04/07/21 04:48 [place] % (Auto) 5.3 % (0.0-13.0) 04/07/21 04:48 Eos % (Auto) 0.0 % (0.9-2.9) L 04/07/21 04:48 Baso % (Auto) 0.2 % (0.2-1.0) 04/07/21 04:48 Neut # (Auto) 4.6 x10^3/uL (2.2-4.8) 04/07/21 04:48 Lymph # (Auto) 1.1 X10^3/uL (1.3-2.9) L 04/07/21 04:48 [place] # (Auto) 0.3 x10^3/uL (0.3-0.8) 04/07/21 04:48 Eos # (Auto) 0.0 x10^3/uL (0.0-0.2) 04/07/21 04:48 Baso # (Auto) 0.0 X10^3/uL (0.0-0.1) 04/07/21 04:48 Absolute Nucleated RBC 0.1 /100WBC 04/07/21 04:48 D-Dimer 1.17 ug/ml (0.0-0.57) H* 04/06/21 08:28 Sample Site Lr 04/06/21 23:18 ABG pH 7.480 (7.35-7.45) H 04/06/21 23:18 ABG pCO2 32.0 mmHg (35.0-45.0) L 04/06/21 23:18 ABG pO2 72.0 mmHg (80.0-100.0) L 04/06/21 23:18 ABG HCO3 23.8 mmol/L (22-26) 04/06/21 23:18 ABG O2 Saturation 95.0 % (90-100) 04/06/21 23:18 ABG Base Excess 0.9 mmol/L (-2.0-2.0) 04/06/21 23:18 Ed Test Pos 04/06/21 23:18 A-a Gradient 423.0 mmHg 04/06/21 23:18 FiO2 75.0 04/06/21 23:18 Blood Gas Comments Tio well ae 04/06/21 23:18 Sodium 143 mmol/L (136-145) 04/07/21 04:48 Corrected Sodium 143 mmol/L (136-145) 04/07/21 04:48 Potassium 3.3 mmol/L (3.5-5.1) L 04/07/21 04:48 Chloride 108 mmol/L (98-107) H 04/07/21 04:48 Carbon Dioxide 24.6 mmol/L (21-32) 04/07/21 04:48 BUN 9 mg/dL (7-18) 04/07/21 04:48 Creatinine 0.69 mg/dL (0.55-1.02) 04/07/21 04:48 Est GFR (MDRD) Af Amer > 60 (>60) 04/07/21 04:48 Est GFR (MDRD) Non-Af > 60 (>60) 04/07/21 04:48 Glucose 119 mg/dL (65-99) H 04/07/21 04:48 Lactic Acid 1.2 mmol/L (0.4-2.0) 04/05/21 13:22 Calcium 7.1 mg/dL (8.5-10.1) L 04/07/21 04:48 Corrected Calcium 8.5 mg/dL (8.5-10.1) 04/07/21 04:48 Magnesium 2.6 mg/dL (1.7-2.9) 04/07/21 04:48 Total Bilirubin 0.30 mg/dL (0.2-1.0) 04/07/21 04:48 AST 115 Units/L (15-37) H 04/07/21 04:48 ALT 89 Units/L (12-78) H 04/07/21 04:48 Alkaline Phosphatase 48 Units/L (46-116) 04/07/21 04:48 Creatine Kinase 169 Units/L (26-192) 04/05/21 13:22 CK-MB (CK-2) 1.1 ng/mL (0-4.0) 04/05/21 13:22 CK/CKMB % Calc 0.7 % (<4) 04/05/21 13:22 Troponin I 0.02 ng/mL (0-1.5) 04/06/21 06:16 Total Protein 5.7 g/dL (6.4-8.2) L 04/07/21 04:48 Albumin 2.2 g/dL (3.4-5.0) L 04/07/21 04:48 Globulin 3.5 g/dL (2.5-4.5) 04/07/21 04:48 Albumin/Globulin Ratio 0.6 Ratio (1.1-2.1) L 04/07/21 04:48 Lipase 368 Units/L (73-393) 04/05/21 13:22 Specimen Type Clean catch urine 04/05/21 13:24 Urine Color Straw (YELLOW) 04/05/21 13:24 Urine Appearance Clear (CLEAR) 04/05/21 13:24 Urine pH 7.0 (5.0 - 8.0) 04/05/21 13:24 Ur Specific [place] 1.010 (1.000-1.030) 04/05/21 13:24 Urine Protein 1+ (NEGATIVE) 04/05/21 13:24 Urine Glucose (UA) Negative (NEGATIVE) 04/05/21 13:24 Urine Ketones Negative (NEGATIVE) 04/05/21 13:24 Urine Occult Blood 1+ (NEGATIVE) 04/05/21 13:24 Urine Nitrite Negative (NEGATIVE) 04/05/21 13:24 Urine Bilirubin Negative (NEGATIVE) 04/05/21 13:24 Urine Urobilinogen Normal (NORMAL) 04/05/21 13:24 Ur Leukocyte Esterase Negative (NEGATIVE) 04/05/21 13:24 Urine RBC 5-10 /HPF (0-3) A 04/05/21 13:24 Urine WBC 0-2 /HPF (0-5) 04/05/21 13:24 Ur Squamous Epith Cells Few /HPF (NEGATIVE) 04/05/21 13:24 Amorphous Sediment Trace /HPF (NEGATIVE) 04/05/21 13:24 Urine Bacteria Trace /HPF (NEGATIVE) 04/05/21 13:24 Ur Culture Indicated? No/not indicated 04/05/21 13:24 SARS-CoV-2 (PCR) Positive (NEGATIVE) A 04/05/21 13:45 Influenza Type A (PCR) Negative (NEGATIVE) 04/05/21 13:45 Influenza Type B (PCR) Negative (NEGATIVE) 04/05/21 13:45 RSV (PCR) Negative (NEGATIVE) 04/05/21 13:45 SARS CoV-2 RNA Rapid OLYA Positive (NEGATIVE) A 04/05/21 13:24 Plan (1) Pneumonia due to COVID-19 virus: Status: Acute (2) Acute respiratory failure with hypoxia: Status: Acute (3) Diarrhea: Status: Acute Qualifiers: Diarrhea type: unspecified type Qualified Code(s): R19.7 - Diarrhea, unspecified (4) Hypokalemia: Status: Acute (5) HTN (hypertension): Status: Acute Qualifiers: Hypertension type: primary hypertension Qualified Code(s): I10 - Essential (primary) hypertension
[2021-04-07] MEDS: REMDESIVIR 100 MG in NS 250 ML IV 250 ML IV SCH (09:33)
[2021-04-07] MEDS: BROVANA IN SCH ×2 (10:00→21:30)
[2021-04-07] MEDS: PULMICORT NEB TX 0.5 MG NEB SCH ×2 (10:00→21:30)
[2021-04-07] MEDS: ZOFRAN TAB 4 MG PO PRN (10:05)
[2021-04-07] MEDS: LOVENOX INJ 30 MG SYR SC SCH ×2 (10:05→20:50)
[2021-04-07] MEDS: TESSALON PERLES PO PRN ×2 (10:05→20:50)
[2021-04-07] MEDS: ASPIRIN EC 81 MG PO SCH (10:05)
[2021-04-07] MEDS: PAXIL PO SCH (10:06)
[2021-04-07] MEDS: PEPCID TAB 40 MG PO SCH ×2 (10:06→20:51)
[2021-04-07] MEDS: VITAMIN A PO SCH (10:06)
[2021-04-07] MEDS: VITAMIN D3 125 mcg (5,000 UNITS) PO SCH (10:06)
[2021-04-07] MEDS: ZINC SULFATE PO SCH ×2 (10:07→20:51)
[2021-04-07] MEDS: ZESTRIL TAB 20 MG PO SCH (10:07)
[2021-04-07] MEDS: ZETIA TAB 10 MG PO SCH (10:07)
[2021-04-07] MEDS: K-DUR TAB 20 MEQ PO PRN ×2 (10:46→15:30)
[2021-04-07] MEDS: VENTOLIN or PROAIR HFA IN SCH ×2 (11:45→21:30)
[2021-04-07] MEDS: PHENERGAN INJ 25 MG IM PRN (12:45)
[2021-04-07] MEDS: TYLENOL 325 MG TAB PO PRN (16:31)
[2021-04-07] MEDS ORDERED: PHARMACY CONSULT - VANCOMYCIN XX SCH (18:00)
[2021-04-07] MEDS: VANCOMYCIN IV *PREMIX 1 G/200 ML BAG 1 G/200 ML PIGGYBACK IV SCH (20:51)
[2021-04-07] MEDS: SOLU-Medrol 125 MG VIAL IVP SCH (21:05)
[2021-04-08] MEDS: BUTT CREAM (COMPOUND) TOP PRN (00:53)
[2021-04-08] MEDS: ATIVAN INJ 2 MG VIAL IVP PRN ×2 (01:33→20:03)
[2021-04-08] MEDS: ASCORBIC ACID INJ MULTI-DOSE VIAL 1,500 MG in NS 100 ML IV 100 ML IV SCH ×4 (02:52→20:52)
[2021-04-08] MEDS: ZOSYN VIAL 2.25 GRAMS 2.25 G in NS 100 ML IV + SPIKE MINIBAG* 100 ML IV SCH ×3 (05:01→22:56)
[2021-04-08] MEDS: SOLU-Medrol 125 MG VIAL IVP SCH ×3 (05:01→21:32)
[2021-04-08 05:25] LABS: BASOPHILS % (AUTO) 0.5 % (0.2-1.0); HEMATOCRIT 40.8 % (36.0-47.0); HEMOGLOBIN 13.7 g/dL (12.0-16.0); LYMPHOCYTES # (AUTO) 0.5 X10^3/uL (1.3-2.9); LYMPHOCYTES % (AUTO) 8.8 % (21.0-51.0); MEAN CORPUSCULAR HEMOGLOBIN 28.8 pg (27.0-34.0); MEAN CORPUSCULAR HGB CONC 33.5 g/dL (33.0-35.0); MEAN CORPUSCULAR VOLUME 85.9 fL (80.0-100.0); MEAN PLATELET VOLUME 8.1 fL (7.4-11.0); MONOCYTES # (AUTO) 0.2 x10^3/uL (0.3-0.8); MONOCYTES % (AUTO) 4.4 % (0.0-13.0); NEUTROPHILS # (AUTO) 4.7 x10^3/uL (2.2-4.8); NEUTROPHILS % (AUTO) 86.3 % (42.0-75.0); PLATELET COUNT 349 X10^3/uL (150.0-450.0); RED BLOOD COUNT 4.75 X10^6/uL (3.5-5.4); RED CELL DISTRIBUTION WIDTH 14.5 % (11.6-16.5); WHITE BLOOD COUNT 5.5 X10^3/uL (3.6-10.0)
[2021-04-08 05:41] LABS: ALANINE AMINOTRANSFERASE 81 Units/L (12-78); ALBUMIN 2.1 g/dL (3.4-5.0); ALKALINE PHOSPHATASE 57 Units/L (46-116); ASPARTATE AMINO TRANSFERASE 105 Units/L (15-37); BLOOD UREA NITROGEN 12 mg/dL (7-18); CALCIUM 7.1 mg/dL (8.5-10.1); CARBON DIOXIDE 25.6 mmol/L (21-32); CHLORIDE 112 mmol/L (98-107); COR CA(FOR HYPOALB) 8.6 mg/dL (8.5-10.1); COR NA(FOR HYPERGLY) 148 mmol/L (136-145); CREATININE 0.71 mg/dL (0.55-1.02); SODIUM 147 mmol/L (136-145); TOTAL PROTEIN 5.7 g/dL (6.4-8.2); eGFR NON BLACK RACES > 60 (>60)
[2021-04-08] MEDS ORDERED: ZESTRIL TAB 20 MG ONE (08:02)
[2021-04-08] MEDS ORDERED: ACTEMRA 400 MG in NS 100 ML IV 80 ML IV NR (08:33)
--- NOTE | 2021-04-08 09:24 | PCM.PROG ---
Progress Note Progress Note for Day of Date of Exam: 04/08/21 Subjective Subjective: Patient seen at bedside, no acute events overnight. She did tolerate HHFNC for the most part during the day yesterday but then was placed back on BiPAP. She is still on BiPAP at FiO2 65%. Patient has been non-compliant and keeps removing the mask due to feeling anxious. She did get some ativan to help her stay calm. This morning patient seemed to be resting comfortably and was not pulling the mask, sats were above 90%. She did not eat much yesterday due to decreased appetite. Labs: WBC 5.5 Hgb 13.7 K: 3.3 BUN/Cr: 12/0.71 AST/ALT: 105/81 CXR: increase in bilateral infiltrates CTA: negative for PE, b/l patchy opacities, also showed a thyroid mass/cyst, non-emergent Thyroid U/S recommended Plan: Wean off BiPAP as tolerated and switch back to HHFNC, discussed compliance with patient. Patient verbalized understanding. Continue Remdesivir and Zosyn/Azithromycin. Continue Solumedrol. Continue vitamin support. Continue nebs, pulmicort and IS. Will add buspar for anxiety. Continue home medication. Monitor resp status closely. Follow cultures. Replace K as per protocol. Continue 1/2 NS with KCl. Monitor AM labs and imaging. Time spent for clinical assessment, reviewing labs/imaging, physical exam, decision making and documentation greater than 75 mins. Past Medical Family Social History Past Med/Fam/Surg Hx: No changes since H&P Allergies: Allergies cortisone Allergy (Verified 04/05/21 13:11) meperidine [From Demerol] Allergy (Verified 04/05/21 13:11) phenobarbital Allergy (Verified 04/05/21 13:11) Review of Systems ROS: No change since H&P Vital Signs and I&O's Vital Signs: Temperature 97.6 F Pulse Rate [Right] 88 Pulse Rate 79 Respiratory Rate 29 Blood Pressure [Right Arm] 177/82 Blood Pressure 157/74 O2 Sat by Pulse Oximetry 92 Intake and Output: Intake & Output 04/05/21 04/06/21 04/07/21 04/08/21 23:59 23:59 23:59 23:59 Intake Total 1358 / 1358 3535 / 3535 2279 / 2279 560 / 560 Output Total 4 / 4 Balance 1358 / 1358 3535 / 3535 1 / 1 556 / 556 Physical Exam Oriented: Normal Eyes: Normal Ear: Normal Nose: Normal Throat: Normal Respiratory: Generalized, Diminished and Rhonchi Cardiovascular: Normal Auscultation: Bowel Sounds: Normal Tenderness: Normal Skin: Decreased Turgur Musculoskeletal: Normal Psychiatric: Anxiety Mood Description: Anxious Affect: Anxious Speech Pattern: Clear and Appropriate Laboratory and Diagnostics Result Diagrams: 04/09/21 04:25 04/09/21 04:25 Labs: 04/07/21 10:15 Stool Stool Culture - Preliminary 04/07/21 10:15 Stool - Final 04/05/21 13:15 Blood Blood Culture - Preliminary 04/05/21 13:22 Blood Blood Culture - Preliminary Laboratory WBC 5.5 X10^3/uL (3.6-10.0) 04/08/21 04:37 RBC 4.75 X10^6/uL (3.5-5.4) 04/08/21 04:37 Hgb 13.7 g/dL (12.0-16.0) 04/08/21 04:37 Hct 40.8 % (36.0-47.0) 04/08/21 04:37 MCV 85.9 fL (80.0-100.0) 04/08/21 04:37 MCH 28.8 pg (27.0-34.0) 04/08/21 04:37 MCHC 33.5 g/dL (33.0-35.0) 04/08/21 04:37 RDW 14.5 % (11.6-16.5) 04/08/21 04:37 Plt Count 349 X10^3/uL (150.0-450.0) 04/08/21 04:37 MPV 8.1 fL (7.4-11.0) 04/08/21 04:37 Neut % (Auto) 86.3 % (42.0-75.0) H 04/08/21 04:37 Lymph % (Auto) 8.8 % (21.0-51.0) L 04/08/21 04:37 [place] % (Auto) 4.4 % (0.0-13.0) 04/08/21 04:37 Eos % (Auto) 0.0 % (0.9-2.9) L 04/08/21 04:37 Baso % (Auto) 0.5 % (0.2-1.0) 04/08/21 04:37 Neut # (Auto) 4.7 x10^3/uL (2.2-4.8) 04/08/21 04:37 Lymph # (Auto) 0.5 X10^3/uL (1.3-2.9) L 04/08/21 04:37 [place] # (Auto) 0.2 x10^3/uL (0.3-0.8) L 04/08/21 04:37 Eos # (Auto) 0.0 x10^3/uL (0.0-0.2) 04/08/21 04:37 Baso # (Auto) 0.0 X10^3/uL (0.0-0.1) 04/08/21 04:37 Absolute Nucleated RBC 0.0 /100WBC 04/08/21 04:37 D-Dimer 1.17 ug/ml (0.0-0.57) H* 04/06/21 08:28 Sample Site Lr 04/06/21 23:18 ABG pH 7.480 (7.35-7.45) H 04/06/21 23:18 ABG pCO2 32.0 mmHg (35.0-45.0) L 04/06/21 23:18 ABG pO2 72.0 mmHg (80.0-100.0) L 04/06/21 23:18 ABG HCO3 23.8 mmol/L (22-26) 04/06/21 23:18 ABG O2 Saturation 95.0 % (90-100) 04/06/21 23:18 ABG Base Excess 0.9 mmol/L (-2.0-2.0) 04/06/21 23:18 Ed Test Pos 04/06/21 23:18 A-a Gradient 423.0 mmHg 04/06/21 23:18 FiO2 75.0 04/06/21 23:18 Blood Gas Comments Tio well ae 04/06/21 23:18 Sodium 147 mmol/L (136-145) H 04/08/21 04:37 Corrected Sodium 148 mmol/L (136-145) H 04/08/21 04:37 Potassium 3.3 mmol/L (3.5-5.1) L 04/08/21 04:37 Chloride 112 mmol/L (98-107) H 04/08/21 04:37 Carbon Dioxide 25.6 mmol/L (21-32) 04/08/21 04:37 BUN 12 mg/dL (7-18) 04/08/21 04:37 Creatinine 0.71 mg/dL (0.55-1.02) 04/08/21 04:37 Est GFR (MDRD) Af Amer > 60 (>60) 04/08/21 04:37 Est GFR (MDRD) Non-Af > 60 (>60) 04/08/21 04:37 Glucose 149 mg/dL (65-99) H 04/08/21 04:37 Lactic Acid 1.2 mmol/L (0.4-2.0) 04/05/21 13:22 Calcium 7.1 mg/dL (8.5-10.1) L 04/08/21 04:37 Corrected Calcium 8.6 mg/dL (8.5-10.1) 04/08/21 04:37 Magnesium 2.6 mg/dL (1.7-2.9) 04/07/21 04:48 Total Bilirubin 0.40 mg/dL (0.2-1.0) 04/08/21 04:37 AST 105 Units/L (15-37) H 04/08/21 04:37 ALT 81 Units/L (12-78) H 04/08/21 04:37 Alkaline Phosphatase 57 Units/L (46-116) 04/08/21 04:37 Creatine Kinase 169 Units/L (26-192) 04/05/21 13:22 CK-MB (CK-2) 1.1 ng/mL (0-4.0) 04/05/21 13:22 CK/CKMB % Calc 0.7 % (<4) 04/05/21 13:22 Troponin I 0.02 ng/mL (0-1.5) 04/06/21 06:16 C-Reactive Protein 83.80 mg/L (0-3.0) H 04/08/21 04:37 Total Protein 5.7 g/dL (6.4-8.2) L 04/08/21 04:37 Albumin 2.1 g/dL (3.4-5.0) L 04/08/21 04:37 Globulin 3.6 g/dL (2.5-4.5) 04/08/21 04:37 Albumin/Globulin Ratio 0.6 Ratio (1.1-2.1) L 04/08/21 04:37 Lipase 368 Units/L (73-393) 04/05/21 13:22 Specimen Type Clean catch urine 04/05/21 13:24 Urine Color Straw (YELLOW) 04/05/21 13:24 Urine Appearance Clear (CLEAR) 04/05/21 13:24 Urine pH 7.0 (5.0 - 8.0) 04/05/21 13:24 Ur Specific [place] 1.010 (1.000-1.030) 04/05/21 13:24 Urine Protein 1+ (NEGATIVE) 04/05/21 13:24 Urine Glucose (UA) Negative (NEGATIVE) 04/05/21 13:24 Urine Ketones Negative (NEGATIVE) 04/05/21 13:24 Urine Occult Blood 1+ (NEGATIVE) 04/05/21 13:24 Urine Nitrite Negative (NEGATIVE) 04/05/21 13:24 Urine Bilirubin Negative (NEGATIVE) 04/05/21 13:24 Urine Urobilinogen Normal (NORMAL) 04/05/21 13:24 Ur Leukocyte Esterase Negative (NEGATIVE) 04/05/21 13:24 Urine RBC 5-10 /HPF (0-3) A 04/05/21 13:24 Urine WBC 0-2 /HPF (0-5) 04/05/21 13:24 Ur Squamous Epith Cells Few /HPF (NEGATIVE) 04/05/21 13:24 Amorphous Sediment Trace /HPF (NEGATIVE) 04/05/21 13:24 Urine Bacteria Trace /HPF (NEGATIVE) 04/05/21 13:24 Ur Culture Indicated? No/not indicated 04/05/21 13:24 Stool Description 5g green mucoid 04/07/21 10:15 Stl Occult Blood (IFOB) Positive (NEGATIVE) A 04/07/21 10:15 Stl C. diff Tox B Gene Negative (NEGATIVE) 04/07/21 10:15 Stl C. diff [id number] Presumptive negative (NEGATIVE) 04/07/21 10:15 SARS-CoV-2 (PCR) Positive (NEGATIVE) A 04/05/21 13:45 Influenza Type A (PCR) Negative (NEGATIVE) 04/05/21 13:45 Influenza Type B (PCR) Negative (NEGATIVE) 04/05/21 13:45 RSV (PCR) Negative (NEGATIVE) 04/05/21 13:45 SARS CoV-2 RNA Rapid OLYA Positive (NEGATIVE) A 04/05/21 13:24 Plan (1) Pneumonia due to COVID-19 virus: Status: Acute (2) Acute respiratory failure with hypoxia: Status: Acute (3) Diarrhea: Status: Acute Qualifiers: Diarrhea type: unspecified type Qualified Code(s): R19.7 - Diarrhea, unspecified (4) Hypokalemia: Status: Acute (5) HTN (hypertension): Status: Acute Qualifiers: Hypertension type: primary hypertension Qualified Code(s): I10 - Essential (primary) hypertension
[2021-04-08] MEDS: REMDESIVIR 100 MG in NS 250 ML IV 250 ML IV SCH (09:32)
[2021-04-08] MEDS: VANCOMYCIN IV *PREMIX 1 G/200 ML BAG 1 G/200 ML PIGGYBACK IV SCH ×2 (09:33→20:54)
[2021-04-08] MEDS: LOVENOX INJ 30 MG SYR SC SCH ×2 (09:34→20:53)
[2021-04-08] MEDS: TESSALON PERLES PO PRN (09:34)
[2021-04-08] MEDS: PAXIL PO SCH (09:35)
[2021-04-08] MEDS: ZINC SULFATE PO SCH ×2 (09:35→20:54)
[2021-04-08] MEDS: VITAMIN D3 125 mcg (5,000 UNITS) PO SCH (09:36)
[2021-04-08] MEDS: ASPIRIN EC 81 MG PO SCH (09:36)
[2021-04-08] MEDS: PEPCID TAB 40 MG PO SCH ×2 (09:36→20:53)
[2021-04-08] MEDS: ZESTRIL TAB 20 MG PO SCH (09:36)
[2021-04-08] MEDS: VITAMIN A PO SCH (09:37)
[2021-04-08] MEDS: ZETIA TAB 10 MG PO SCH (09:37)
[2021-04-08] MEDS: PULMICORT NEB TX 0.5 MG NEB SCH ×2 (10:00→21:00)
[2021-04-08] MEDS: BROVANA IN SCH ×2 (10:00→21:00)
[2021-04-08] MEDS: BUSPAR PO SCH ×2 (10:15→20:53)
[2021-04-08] MEDS: ZITHROMAX INJ 500 MG VIAL 250 MG in NS 250 ML IV 250 ML IV SCH (10:16)
[2021-04-08] MEDS: NS 1/2 + KCL 20 MEQ/L 1,000 ML IV SCH ×2 (10:17→21:33)
[2021-04-08] MEDS: ZOFRAN TAB 4 MG PO PRN (12:22)
[2021-04-08] MEDS: DIFLUCAN PO ONE ×2 (16:07→17:16)
[2021-04-08] MEDS ORDERED: DIFLUCAN ONE (16:13)
[2021-04-08] MEDS: VENTOLIN or PROAIR HFA IN SCH (18:25)
[2021-04-08] MEDS: MELATONIN PO SCH (20:53)
[2021-04-09] MEDS: ASCORBIC ACID INJ MULTI-DOSE VIAL 1,500 MG in NS 100 ML IV 100 ML IV SCH ×4 (02:37→21:16)
[2021-04-09] MEDS: VENTOLIN or PROAIR HFA IN SCH ×5 (03:58→20:20)
[2021-04-09] MEDS: ZOSYN VIAL 2.25 GRAMS 2.25 G in NS 100 ML IV + SPIKE MINIBAG* 100 ML IV SCH ×3 (05:08→23:10)
[2021-04-09] MEDS: SOLU-Medrol 125 MG VIAL IVP SCH ×3 (05:08→21:16)
[2021-04-09 05:15] LABS: BASOPHILS % (AUTO) 0.1 % (0.2-1.0); HEMATOCRIT 41.2 % (36.0-47.0); HEMOGLOBIN 13.8 g/dL (12.0-16.0); LYMPHOCYTES # (AUTO) 0.5 X10^3/uL (1.3-2.9); LYMPHOCYTES % (AUTO) 6.5 % (21.0-51.0); MEAN CORPUSCULAR HEMOGLOBIN 28.7 pg (27.0-34.0); MEAN CORPUSCULAR HGB CONC 33.6 g/dL (33.0-35.0); MEAN CORPUSCULAR VOLUME 85.6 fL (80.0-100.0); MEAN PLATELET VOLUME 8.1 fL (7.4-11.0); MONOCYTES # (AUTO) 0.5 x10^3/uL (0.3-0.8); MONOCYTES % (AUTO) 6.7 % (0.0-13.0); NEUTROPHILS # (AUTO) 6.9 x10^3/uL (2.2-4.8); NEUTROPHILS % (AUTO) 86.7 % (42.0-75.0); PLATELET COUNT 424 X10^3/uL (150.0-450.0); RED BLOOD COUNT 4.81 X10^6/uL (3.5-5.4); RED CELL DISTRIBUTION WIDTH 14.8 % (11.6-16.5)
[2021-04-09 05:31] LABS: ALANINE AMINOTRANSFERASE 90 Units/L (12-78); ALKALINE PHOSPHATASE 90 Units/L (46-116); ASPARTATE AMINO TRANSFERASE 103 Units/L (15-37); BLOOD UREA NITROGEN 16 mg/dL (7-18); CALCIUM 7.2 mg/dL (8.5-10.1); CARBON DIOXIDE 25.5 mmol/L (21-32); CHLORIDE 114 mmol/L (98-107); COR CA(FOR HYPOALB) 8.8 mg/dL (8.5-10.1); COR NA(FOR HYPERGLY) 150 mmol/L (136-145); CREATININE 0.66 mg/dL (0.55-1.02); SODIUM 149 mmol/L (136-145); TOTAL PROTEIN 5.5 g/dL (6.4-8.2); eGFR NON BLACK RACES > 60 (>60)
[2021-04-09] MEDS ORDERED: ZESTRIL TAB 20 MG ONE (07:43)
[2021-04-09] MEDS: VITAMIN A PO SCH (08:50)
[2021-04-09] MEDS: ZETIA TAB 10 MG PO SCH (08:50)
[2021-04-09] MEDS: VITAMIN D3 125 mcg (5,000 UNITS) PO SCH (08:50)
[2021-04-09] MEDS: ASPIRIN EC 81 MG PO SCH (08:50)
[2021-04-09] MEDS: PAXIL PO SCH (08:50)
[2021-04-09] MEDS: PEPCID TAB 40 MG PO SCH ×2 (08:50→21:17)
[2021-04-09] MEDS: ZINC SULFATE PO SCH ×2 (08:50→21:17)
[2021-04-09] MEDS: BUSPAR PO SCH ×2 (08:50→21:17)
[2021-04-09] MEDS: ZESTRIL TAB 20 MG PO SCH (08:50)
[2021-04-09] MEDS ORDERED: D5W 1000 ML IV 1,000 ML IV SCH (10:00)
[2021-04-09] MEDS: VANCOMYCIN IV *PREMIX 1 G/200 ML BAG 1 G/200 ML PIGGYBACK IV SCH ×2 (10:09→22:00)
[2021-04-09] MEDS: REMDESIVIR 100 MG in NS 250 ML IV 250 ML IV SCH (10:10)
[2021-04-09] MEDS: LOVENOX INJ 30 MG SYR SC SCH ×2 (10:11→21:21)
[2021-04-09] MEDS: D5W + KCL 20 MEQ/L 1,000 ML IV SCH ×2 (10:13→19:30)
[2021-04-09] MEDS: BROVANA IN SCH ×2 (10:17→20:20)
[2021-04-09] MEDS: PULMICORT NEB TX 0.5 MG NEB SCH ×2 (10:24→20:20)
[2021-04-09 10:36] LABS: ABG BASE EXCESS 1.7 mmol/L (-2.0-2.0); ABG HCO3 25.8 mmol/L (22-26)
--- NOTE | 2021-04-09 11:04 | PCM.PROG ---
Progress Note Progress Note for Day of Date of Exam: 04/09/21 Subjective Subjective: Patient seen at bedside, no acute events overnight. Patient did well last night, slept good with melatonin. She is currently on the BiPAP. She was switched from HHFNC to BiPAP overnight. She is currently on FiO2 65% with sats above 90%. She states she feels slightly better. She did eat a little bit yesterday. Her diarrhea has improved, no BMs overnight. She has been afebrile. Patient's BP did elevate overnight, SBP in 200s. Labs: WBC 8 Hgb 13.8 K: 3.3 BUN/Cr: 16/0.6 Na: 150 Cl 114 AST/ALT: 103/90 CXR: increase in bilateral infiltrates CTA: negative for PE, b/l patchy opacities, also showed a thyroid mass/cyst, non-emergent Thyroid U/S recommended Stool Cx: yeast Plan: Will switch to D5 with KCl. Repeat CXR and ABG today. Wean off BiPAP as tolerated and switch back to HHFNC, Continue Remdesivir and Zosyn/Azithromycin and Vancomycin. Continue Solumedrol. Continue vitamin support. Continue nebs, pulmicort and IS. Continue buspar for anxiety and melatonin for insomnia. Continue home medications. Monitor resp status closely. Follow cultures. Replace K as per protocol. Will add hydralazine prn for SBP >160. Monitor AM labs and imaging. Time spent for clinical assessment, reviewing labs/imaging, physical exam, decision making and documentation greater than 75 mins. Past Medical Family Social History Past Med/Fam/Surg Hx: No changes since H&P Allergies: Allergies cortisone Allergy (Verified 04/05/21 13:11) meperidine [From Demerol] Allergy (Verified 04/05/21 13:11) phenobarbital Allergy (Verified 04/05/21 13:11) Review of Systems ROS: No change since H&P Vital Signs and I&O's Vital Signs: Temperature 98.0 F Pulse Rate [Right] 88 Pulse Rate 71 Respiratory Rate 30 Blood Pressure [Right Arm] 177/82 Blood Pressure 156/80 O2 Sat by Pulse Oximetry 90 Intake and Output: Intake & Output 04/06/21 04/07/21 04/08/21 04/09/21 23:59 23:59 23:59 23:59 Intake Total 3535 / 3535 2279 / 2278 600 / 600 Output Total 4 / 4 Balance 491 / 2921 / 2271 2035 600 / 600 Physical Exam Oriented: Normal Eyes: Normal Ear: Normal Nose: Normal Throat: Normal Respiratory: Generalized and Diminished Cardiovascular: Normal Auscultation: Bowel Sounds: Normal Tenderness: Normal Skin: Decreased [place]urgur Musculoskeletal: Normal Psychiatric: Anxiety Mood Description: Anxious Affect: Anxious Speech Pattern: Clear and Appropriate Laboratory and Diagnostics Result Diagrams: 04/09/21 04:25 04/09/21 04:25 Labs: 04/07/21 10:15 Stool Stool Culture - Final 04/07/21 10:15 Stool - Final 04/05/21 13:15 Blood Blood Culture - Preliminary 04/05/21 13:22 Blood Blood Culture - Preliminary Laboratory WBC 8.0 X10^3/uL (3.6-10.0) 04/09/21 04:25 RBC 4.81 X10^6/uL (3.5-5.4) 04/09/21 04:25 Hgb 13.8 g/dL (12.0-16.0) 04/09/21 04:25 Hct 41.2 % (36.0-47.0) 04/09/21 04:25 MCV 85.6 fL (80.0-100.0) 04/09/21 04:25 MCH 28.7 pg (27.0-34.0) 04/09/21 04:25 MCHC 33.6 g/dL (33.0-35.0) 04/09/21 04:25 RDW 14.8 % (11.6-16.5) 04/09/21 04:25 Plt Count 424 X10^3/uL (150.0-450.0) 04/09/21 04:25 MPV 8.1 fL (7.4-11.0) 04/09/21 04:25 Neut % (Auto) 86.7 % (42.0-75.0) H 04/09/21 04:25 Lymph % (Auto) 6.5 % (21.0-51.0) L 04/09/21 04:25 [place] % (Auto) 6.7 % (0.0-13.0) 04/09/21 04:25 Eos % (Auto) 0.0 % (0.9-2.9) L 04/09/21 04:25 Baso % (Auto) 0.1 % (0.2-1.0) L 04/09/21 04:25 Neut # (Auto) 6.9 x10^3/uL (2.2-4.8) H 04/09/21 04:25 Lymph # (Auto) 0.5 X10^3/uL (1.3-2.9) L 04/09/21 04:25 [place] # (Auto) 0.5 x10^3/uL (0.3-0.8) 04/09/21 04:25 Eos # (Auto) 0.0 x10^3/uL (0.0-0.2) 04/09/21 04:25 Baso # (Auto) 0.0 X10^3/uL (0.0-0.1) 04/09/21 04:25 Absolute Nucleated RBC 0.0 /100WBC 04/09/21 04:25 D-Dimer 1.17 ug/ml (0.0-0.57) H* 04/06/21 08:28 Sample Site Right radial 04/09/21 10:26 ABG pH 7.440 (7.35-7.45) 04/09/21 10:26 ABG pCO2 38.0 mmHg (35.0-45.0) 04/09/21 10:26 ABG pO2 74.0 mmHg (80.0-100.0) L 04/09/21 10:26 ABG HCO3 25.8 mmol/L (22-26) 04/09/21 10:26 ABG O2 Saturation 95.0 % (90-100) 04/09/21 10:26 ABG Base Excess 1.7 mmol/L (-2.0-2.0) 04/09/21 10:26 Ed Test Na 04/09/21 10:26 A-a Gradient 342.0 mmHg 04/09/21 10:26 FiO2 65.0 04/09/21 10:26 Blood Gas Comments Tio well aw 04/09/21 10:26 Sodium 149 mmol/L (136-145) H 04/09/21 04:25 Corrected Sodium 150 mmol/L (136-145) H 04/09/21 04:25 Potassium 3.3 mmol/L (3.5-5.1) L 04/09/21 04:25 Chloride 114 mmol/L (98-107) H 04/09/21 04:25 Carbon Dioxide 25.5 mmol/L (21-32) 04/09/21 04:25 BUN 16 mg/dL (7-18) 04/09/21 04:25 Creatinine 0.66 mg/dL (0.55-1.02) 04/09/21 04:25 Est GFR (MDRD) Af Amer > 60 (>60) 04/09/21 04:25 Est GFR (MDRD) Non-Af > 60 (>60) 04/09/21 04:25 Glucose 144 mg/dL (65-99) H 04/09/21 04:25 Lactic Acid 1.2 mmol/L (0.4-2.0) 04/05/21 13:22 Calcium 7.2 mg/dL (8.5-10.1) L 04/09/21 04:25 Corrected Calcium 8.8 mg/dL (8.5-10.1) 04/09/21 04:25 Magnesium 2.6 mg/dL (1.7-2.9) 04/07/21 04:48 Total Bilirubin 0.50 mg/dL (0.2-1.0) 04/09/21 04:25 AST 103 Units/L (15-37) H 04/09/21 04:25 ALT 90 Units/L (12-78) H 04/09/21 04:25 Alkaline Phosphatase 90 Units/L (46-116) 04/09/21 04:25 Creatine Kinase 169 Units/L (26-192) 04/05/21 13:22 CK-MB (CK-2) 1.1 ng/mL (0-4.0) 04/05/21 13:22 CK/CKMB % Calc 0.7 % (<4) 04/05/21 13:22 Troponin I 0.02 ng/mL (0-1.5) 04/06/21 06:16 C-Reactive Protein 83.80 mg/L (0-3.0) H 04/08/21 04:37 Total Protein 5.5 g/dL (6.4-8.2) L 04/09/21 04:25 Albumin 2.0 g/dL (3.4-5.0) L 04/09/21 04:25 Globulin 3.5 g/dL (2.5-4.5) 04/09/21 04:25 Albumin/Globulin Ratio 0.6 Ratio (1.1-2.1) L 04/09/21 04:25 Lipase 368 Units/L (73-393) 04/05/21 13:22 Specimen Type Clean catch urine 04/05/21 13:24 Urine Color Straw (YELLOW) 04/05/21 13:24 Urine Appearance Clear (CLEAR) 04/05/21 13:24 Urine pH 7.0 (5.0 - 8.0) 04/05/21 13:24 Ur Specific [place] 1.010 (1.000-1.030) 04/05/21 13:24 Urine Protein 1+ (NEGATIVE) 04/05/21 13:24 Urine Glucose (UA) Negative (NEGATIVE) 04/05/21 13:24 Urine Ketones Negative (NEGATIVE) 04/05/21 13:24 Urine Occult Blood 1+ (NEGATIVE) 04/05/21 13:24 Urine Nitrite Negative (NEGATIVE) 04/05/21 13:24 Urine Bilirubin Negative (NEGATIVE) 04/05/21 13:24 Urine Urobilinogen Normal (NORMAL) 04/05/21 13:24 Ur Leukocyte Esterase Negative (NEGATIVE) 04/05/21 13:24 Urine RBC 5-10 /HPF (0-3) A 04/05/21 13:24 Urine WBC 0-2 /HPF (0-5) 04/05/21 13:24 Ur Squamous Epith Cells Few /HPF (NEGATIVE) 04/05/21 13:24 Amorphous Sediment Trace /HPF (NEGATIVE) 04/05/21 13:24 Urine Bacteria Trace /HPF (NEGATIVE) 04/05/21 13:24 Ur Culture Indicated? No/not indicated 04/05/21 13:24 Stool Description 5g green mucoid 04/07/21 10:15 Stl Occult Blood (IFOB) Positive (NEGATIVE) A 04/07/21 10:15 Stl C. diff Tox B Gene Negative (NEGATIVE) 04/07/21 10:15 Stl C. diff [id number] Presumptive negative (NEGATIVE) 04/07/21 10:15 Random Vancomycin 8.2 ug/mL 04/09/21 08:25 SARS-CoV-2 (PCR) Positive (NEGATIVE) A 04/05/21 13:45 Influenza Type A (PCR) Negative (NEGATIVE) 04/05/21 13:45 Influenza Type B (PCR) Negative (NEGATIVE) 04/05/21 13:45 RSV (PCR) Negative (NEGATIVE) 04/05/21 13:45 SARS CoV-2 RNA Rapid OLYA Positive (NEGATIVE) A 04/05/21 13:24 Plan (1) Pneumonia due to COVID-19 virus: Status: Acute (2) Acute respiratory failure with hypoxia: Status: Acute (3) Diarrhea: Status: Acute Qualifiers: Diarrhea type: unspecified type Qualified Code(s): R19.7 - Diarrhea, unspecified (4) Hypokalemia: Status: Acute (5) HTN (hypertension): Status: Acute Qualifiers: Hypertension type: primary hypertension Qualified Code(s): I10 - Essential (primary) hypertension
[2021-04-09] MEDS: ZITHROMAX INJ 500 MG VIAL 250 MG in NS 250 ML IV 250 ML IV SCH ×2 (11:28→21:45)
[2021-04-09] MEDS: TESSALON PERLES PO PRN (17:17)
[2021-04-09] MEDS: ATIVAN INJ 2 MG VIAL IVP PRN (17:18)
--- NOTE | 2021-04-09 17:43 | RAD ---
HISTORYCOVID PNEUMONIA; HYPOXIASTUDYCHEST, 1 VIEWCOMPARISONAugust 2020TECHNIQUEChest radiographic imaging, AP portable projection, 1 imageFINDINGSNo cardiomegaly.Diffuse bilateral airspace opacities; without significant change.No pleural effusion.No pneumothorax.No acute osseous abnormality.IMPRESSIONDiffuse bilateral airspace opacities; without significant change.Electronically signed by: Pelon Brown (Apr 09, 2021 17:41:47)
[2021-04-09] MEDS ORDERED: ZITHROMAX INJ 500 MG VIAL IV ONE (19:53)
[2021-04-09] MEDS: MELATONIN PO SCH (21:18)
[2021-04-09] MEDS ORDERED: NS 250 ML IV 250 ML IV ONE (21:19)
[2021-04-10] MEDS: D5W + KCL 20 MEQ/L 1,000 ML IV SCH (03:01)
[2021-04-10] MEDS: ASCORBIC ACID INJ MULTI-DOSE VIAL 1,500 MG in NS 100 ML IV 100 ML IV SCH ×4 (03:02→20:10)
[2021-04-10] MEDS: APRESOLINE INJ 20 MG VIAL IVP PRN (03:30)
[2021-04-10] MEDS: SOLU-Medrol 125 MG VIAL IVP SCH ×3 (05:30→21:17)
[2021-04-10] MEDS: BUTT CREAM (COMPOUND) TOP PRN (05:30)
[2021-04-10] MEDS: ATIVAN INJ 2 MG VIAL IVP PRN ×2 (05:30→16:35)
[2021-04-10] MEDS: ZOSYN VIAL 2.25 GRAMS 2.25 G in NS 100 ML IV + SPIKE MINIBAG* 100 ML IV SCH ×3 (05:30→23:00)
[2021-04-10 05:31] LABS: BASOPHILS % (AUTO) 0.2 % (0.2-1.0); HEMOGLOBIN 13.6 g/dL (12.0-16.0); LYMPHOCYTES # (AUTO) 0.5 X10^3/uL (1.3-2.9); LYMPHOCYTES % (AUTO) 3.9 % (21.0-51.0); MEAN CORPUSCULAR HEMOGLOBIN 28.8 pg (27.0-34.0); MEAN CORPUSCULAR HGB CONC 33.2 g/dL (33.0-35.0); MEAN CORPUSCULAR VOLUME 86.5 fL (80.0-100.0); MEAN PLATELET VOLUME 7.8 fL (7.4-11.0); MONOCYTES # (AUTO) 0.7 x10^3/uL (0.3-0.8); MONOCYTES % (AUTO) 5.3 % (0.0-13.0); NEUTROPHILS # (AUTO) 11.7 x10^3/uL (2.2-4.8); NEUTROPHILS % (AUTO) 90.6 % (42.0-75.0); PLATELET COUNT 376 X10^3/uL (150.0-450.0); RED BLOOD COUNT 4.74 X10^6/uL (3.5-5.4); RED CELL DISTRIBUTION WIDTH 14.9 % (11.6-16.5); WHITE BLOOD COUNT 12.9 X10^3/uL (3.6-10.0)
[2021-04-10 05:50] LABS: ALANINE AMINOTRANSFERASE 115 Units/L (12-78); ALBUMIN 2.2 g/dL (3.4-5.0); ALKALINE PHOSPHATASE 133 Units/L (46-116); ASPARTATE AMINO TRANSFERASE 158 Units/L (15-37); BLOOD UREA NITROGEN 19 mg/dL (7-18); CARBON DIOXIDE 24.4 mmol/L (21-32); COR CA(FOR HYPOALB) 8.4 mg/dL (8.5-10.1); COR NA(FOR HYPERGLY) 155 mmol/L (136-145); CREATININE 0.73 mg/dL (0.55-1.02); TOTAL PROTEIN 5.4 g/dL (6.4-8.2); eGFR NON BLACK RACES > 60 (>60)
[2021-04-10 06:09] LABS: CHLORIDE 118 mmol/L (98-107); SODIUM 153 mmol/L (136-145)
[2021-04-10 06:33] LABS: PLATELET MORPHOLOGY COMMENT NORMAL (NORMAL)
[2021-04-10] MEDS: LOVENOX INJ 30 MG SYR SC SCH ×2 (09:30→21:15)
[2021-04-10] MEDS: PULMICORT NEB TX 0.5 MG NEB SCH ×2 (09:53→21:17)
[2021-04-10] MEDS: BROVANA IN SCH ×2 (09:54→21:21)
[2021-04-10] MEDS ORDERED: D5W 1000 ML IV 1,000 ML IV SCH (10:00)
[2021-04-10] MEDS: VENTOLIN or PROAIR HFA IN SCH ×4 (10:08→21:31)
[2021-04-10] MEDS ORDERED: ACTEMRA 400 MG in NS 100 ML IV 80 ML IV SCH (10:45)
[2021-04-10] MEDS: VITAMIN A PO SCH (10:49)
[2021-04-10] MEDS: K-DUR TAB 20 MEQ PO SCH ×2 (10:49→21:18)
[2021-04-10] MEDS: D5W 1000 ML IV 1,000 ML with POTASSIUM CHLORIDE INJ 40 MEQ VIAL 40 MEQ IV SCH ×2 (10:50)
[2021-04-10] MEDS: ZETIA TAB 10 MG PO SCH (10:50)
[2021-04-10] MEDS: ZESTRIL TAB 20 MG PO SCH (10:50)
[2021-04-10] MEDS: ASPIRIN EC 81 MG PO SCH (10:50)
[2021-04-10] MEDS: ZINC SULFATE PO SCH ×2 (10:50→21:18)
[2021-04-10] MEDS: BUSPAR PO SCH ×2 (10:50→21:16)
[2021-04-10] MEDS: PAXIL PO SCH (10:50)
[2021-04-10] MEDS: VITAMIN D3 125 mcg (5,000 UNITS) PO SCH (10:51)
[2021-04-10] MEDS: TESSALON PERLES PO PRN (10:52)
[2021-04-10] MEDS: VANCOMYCIN IV *PREMIX 1 G/200 ML BAG 1 G/200 ML PIGGYBACK IV SCH (10:54)
[2021-04-10] MEDS ORDERED: ZESTRIL TAB 20 MG ONE (10:59)
--- NOTE | 2021-04-10 11:35 | PCM.PROG ---
Progress Note Progress Note for Day of Date of Exam: 04/10/21 Subjective Subjective: Patient seen at bedside, overnight patient pulled off the Bipap and sats dropped to 70s. Patient was placed back on bipap and FiO2 increased to 100%. She is currently resting with sats above 95%. She is in no respiratory distress. She continues to have dry cough. Labs: WBC 12.9 Hgb 13.6 K: 3.0 BUN/Cr: 19/0.73 Na: 153 Cl 118 AST/ALT: 158/115 CRP 27.20 CXR (04/09/21): diffuse bilateral opacities. Stable. CTA: negative for PE, b/l patchy opacities, also showed a thyroid mass/cyst, n on-emergent Thyroid U/S recommended Stool Cx: yeast Plan: Will increase D5 to 125 with KCl. Give one more dose of Actemra. Wean off BiPAP as tolerated and switch back to HHFNC, discussed compliance with patient. Also discussed that if her sats are not able to maintain on Bipap, next step would be the vent. Patient verbalized understanding. Continue Remdesivir and Zosyn/Azithromycin and Vancomycin. Continue Solumedrol. Continue vitamin support. Continue nebs, pulmicort and IS. Continue buspar for anxiety and melatonin for insomnia. Continue home medications as tolerated. Will switch to IV Pepcid, add Protonix. Monitor resp status closely. Follow cultures. Continue hydralazine prn for SBP >160. Patient remains in a critical condition. Monitor AM labs and imaging. Time spent for clinical assessment, reviewing labs/imaging, physical exam, decision making and documentation greater than 75 mins. Past Medical Family Social History Past Med/Fam/Surg Hx: No changes since H&P Allergies: Allergies cortisone Allergy (Verified 04/05/21 13:11) meperidine [From Demerol] Allergy (Verified 04/05/21 13:11) phenobarbital Allergy (Verified 04/05/21 13:11) Review of Systems ROS: No change since H&P Vital Signs and I&O's Vital Signs: Temperature 98.9 F Pulse Rate [Right] 88 Pulse Rate 70 Respiratory Rate 43 Blood Pressure [Right Arm] 177/82 Blood Pressure 140/67 O2 Sat by Pulse Oximetry 94 Intake and Output: Intake & Output 04/07/21 04/08/21 04/09/2104/10/21 23:59 23:59 23:59 23:59 Intake Total 2278 / 2278 1430 / 1430 1053 / 1053 Output Total / Balance 2270 / 2270 1430 / 1430 1053 / 1053 Physical Exam Oriented: Normal Eyes: Normal Ear: Normal Nose: Normal Throat: Normal Respiratory: Generalized and Diminished Cardiovascular: Normal Auscultation: Bowel Sounds: Normal Tenderness: Normal Skin: Decreased Turgur Musculoskeletal: Normal Psychiatric: Anxiety Mood Description: Anxious Affect: Anxious Speech Pattern: Appropriate Laboratory and Diagnostics Result Diagrams: 04/10/21 04:22 04/10/21 04:22 Labs: 04/07/21 10:15 Stool Stool Culture - Final 04/07/21 10:15 Stool - Final 04/05/21 13:15 Blood Blood Culture - Preliminary 04/05/21 13:22 Blood Blood Culture - Preliminary Laboratory WBC 12.9 X10^3/uL (3.6-10.0) H 04/10/21 04:22 RBC 4.74 X10^6/uL (3.5-5.4) 04/10/21 04:22 Hgb 13.6 g/dL (12.0-16.0) 04/10/21 04:22 Hct 41.0 % (36.0-47.0) 04/10/21 04:22 MCV 86.5 fL (80.0-100.0) 04/10/21 04:22 MCH 28.8 pg (27.0-34.0) 04/10/21 04:22 MCHC 33.2 g/dL (33.0-35.0) 04/10/21 04:22 RDW 14.9 % (11.6-16.5) 04/10/21 04:22 Plt Count 376 X10^3/uL (150.0-450.0) 04/10/21 04:22 Plt Count Comment Adequate (ADEQUATE) 04/10/21 04:22 MPV 7.8 fL (7.4-11.0) 04/10/21 04:22 Neut % (Auto) 90.6 % (42.0-75.0) H 04/10/21 04:22 Lymph % (Auto) 3.9 % (21.0-51.0) L 04/10/21 04:22 [place] % (Auto) 5.3 % (0.0-13.0) 04/10/21 04:22 Eos % (Auto) 0.0 % (0.9-2.9) L 04/10/21 04:22 Baso % (Auto) 0.2 % (0.2-1.0) 04/10/21 04:22 Neut # (Auto) 11.7 x10^3/uL (2.2-4.8) H 04/10/21 04:22 Lymph # (Auto) 0.5 X10^3/uL (1.3-2.9) L 04/10/21 04:22 [place] # (Auto) 0.7 x10^3/uL (0.3-0.8) 04/10/21 04:22 Eos # (Auto) 0.0 x10^3/uL (0.0-0.2) 04/10/21 04:22 Baso # (Auto) 0.0 X10^3/uL (0.0-0.1) 04/10/21 04:22 Absolute Nucleated RBC 0.3 /100WBC 04/10/21 04:22 Total Counted 100 04/10/21 04:22 Neutrophils % (Manual) 88 % (39-76) H 04/10/21 04:22 Lymphocytes % (Manual) 12 % (13-43) L 04/10/21 04:22 Plt Morphology Comment Normal (NORMAL) 04/10/21 04:22 RBC Morphology Normal (NORMAL) 04/10/21 04:22 D-Dimer 1.17 ug/ml (0.0-0.57) H* 04/06/21 08:28 Sample Site Right radial 04/09/21 10:26 ABG pH 7.440 (7.35-7.45) 04/09/21 10:26 ABG pCO2 38.0 mmHg (35.0-45.0) 04/09/21 10:26 ABG pO2 74.0 mmHg (80.0-100.0) L 04/09/21 10:26 ABG HCO3 25.8 mmol/L (22-26) 04/09/21 10:26 ABG O2 Saturation 95.0 % (90-100) 04/09/21 10:26 ABG Base Excess 1.7 mmol/L (-2.0-2.0) 04/09/21 10:26 Ed Test Na 04/09/21 10:26 A-a Gradient 342.0 mmHg 04/09/21 10:26 FiO2 65.0 04/09/21 10:26 Blood Gas Comments Tio well aw 04/09/21 10:26 Sodium 153 mmol/L (136-145) H* 04/10/21 04:22 Corrected Sodium 155 mmol/L (136-145) H 04/10/21 04:22 Potassium 3.0 mmol/L (3.5-5.1) L* 04/10/21 04:22 Chloride 118 mmol/L (98-107) H* 04/10/21 04:22 Carbon Dioxide 24.4 mmol/L (21-32) 04/10/21 04:22 BUN 19 mg/dL (7-18) H 04/10/21 04:22 Creatinine 0.73 mg/dL (0.55-1.02) 04/10/21 04:22 Est GFR (MDRD) Af Amer > 60 (>60) 04/10/21 04:22 Est GFR (MDRD) Non-Af > 60 (>60) 04/10/21 04:22 Glucose 176 mg/dL (65-99) H 04/10/21 04:22 Lactic Acid 1.2 mmol/L (0.4-2.0) 04/05/21 13:22 Calcium 7.0 mg/dL (8.5-10.1) L 04/10/21 04:22 Corrected Calcium 8.4 mg/dL (8.5-10.1) L 04/10/21 04:22 Magnesium 2.9 mg/dL (1.7-2.9) 04/10/21 04:22 Total Bilirubin 1.00 mg/dL (0.2-1.0) 04/10/21 04:22 AST 158 Units/L (15-37) H 04/10/21 04:22 ALT 115 Units/L (12-78) H 04/10/21 04:22 Alkaline Phosphatase 133 Units/L (46-116) H 04/10/21 04:22 Creatine Kinase 169 Units/L (26-192) 04/05/21 13:22 CK-MB (CK-2) 1.1 ng/mL (0-4.0) 04/05/21 13:22 CK/CKMB % Calc 0.7 % (<4) 04/05/21 13:22 Troponin I 0.02 ng/mL (0-1.5) 04/06/21 06:16 C-Reactive Protein 27.20 mg/L (0-3.0) H 04/10/21 04:22 Total Protein 5.4 g/dL (6.4-8.2) L 04/10/21 04:22 Albumin 2.2 g/dL (3.4-5.0) L 04/10/21 04:22 Globulin 3.2 g/dL (2.5-4.5) 04/10/21 04:22 Albumin/Globulin Ratio 0.7 Ratio (1.1-2.1) L 04/10/21 04:22 Lipase 368 Units/L (73-393) 04/05/21 13:22 Specimen Type Clean catch urine 04/05/21 13:24 Urine Color Straw (YELLOW) 04/05/21 13:24 Urine Appearance Clear (CLEAR) 04/05/21 13:24 Urine pH 7.0 (5.0 - 8.0) 04/05/21 13:24 Ur Specific [place] 1.010 (1.000-1.030) 04/05/21 13:24 Urine Protein 1+ (NEGATIVE) 04/05/21 13:24 Urine Glucose (UA) Negative (NEGATIVE) 04/05/21 13:24 Urine Ketones Negative (NEGATIVE) 04/05/21 13:24 Urine Occult Blood 1+ (NEGATIVE) 04/05/21 13:24 Urine Nitrite Negative (NEGATIVE) 04/05/21 13:24 Urine Bilirubin Negative (NEGATIVE) 04/05/21 13:24 Urine Urobilinogen Normal (NORMAL) 04/05/21 13:24 Ur Leukocyte Esterase Negative (NEGATIVE) 04/05/21 13:24 Urine RBC 5-10 /HPF (0-3) A 04/05/21 13:24 Urine WBC 0-2 /HPF (0-5) 04/05/21 13:24 Ur Squamous Epith Cells Few /HPF (NEGATIVE) 04/05/21 13:24 Amorphous Sediment Trace /HPF (NEGATIVE) 04/05/21 13:24 Urine Bacteria Trace /HPF (NEGATIVE) 04/05/21 13:24 Ur Culture Indicated? No/not indicated 04/05/21 13:24 Stool Description 5g green mucoid 04/07/21 10:15 Stl Occult Blood (IFOB) Positive (NEGATIVE) A 04/07/21 10:15 Stl C. diff Tox B Gene Negative (NEGATIVE) 04/07/21 10:15 Stl C. diff [id number] Presumptive negative (NEGATIVE) 04/07/21 10:15 Random Vancomycin 8.2 ug/mL 04/09/21 08:25 SARS-CoV-2 (PCR) Positive (NEGATIVE) A 04/05/21 13:45 Influenza Type A (PCR) Negative (NEGATIVE) 04/05/21 13:45 Influenza Type B (PCR) Negative (NEGATIVE) 04/05/21 13:45 RSV (PCR) Negative (NEGATIVE) 04/05/21 13:45 SARS CoV-2 RNA Rapid OLYA Positive (NEGATIVE) A 04/05/21 13:24 Plan (1) Pneumonia due to COVID-19 virus: Status: Acute (2) Acute respiratory failure with hypoxia: Status: Acute (3) Diarrhea: Status: Acute Qualifiers: Diarrhea type: unspecified type Qualified Code(s): R19.7 - Diarrhea, unspecified (4) Hypokalemia: Status: Acute (5) HTN (hypertension): Status: Acute Qualifiers: Hypertension type: primary hypertension Qualified Code(s): I10 - Essential (primary) hypertension (6) Hypernatremia: Status: Acute
[2021-04-10] MEDS: PEPCID 20 MG IV PREMIX* 20 MG/50 ML BAG IV SCH (13:16)
[2021-04-10] MEDS: VANCOMYCIN IV *PREMIX 1.25 G/250 ML BAG 1.25 G/250 ML PIGGYBACK IV SCH ×2 (13:59→21:18)
[2021-04-10] MEDS: MELATONIN PO SCH (21:17)
[2021-04-10] MEDS: ZITHROMAX INJ 500 MG VIAL 250 MG in NS 250 ML IV 250 ML IV SCH (22:00)
[2021-04-11] MEDS: D5W 1000 ML IV 1,000 ML with POTASSIUM CHLORIDE INJ 40 MEQ VIAL 40 MEQ IV SCH ×6 (00:14→23:32)
[2021-04-11] MEDS: ASCORBIC ACID INJ MULTI-DOSE VIAL 1,500 MG in NS 100 ML IV 100 ML IV SCH ×4 (02:40→20:43)
[2021-04-11] MEDS: BUTT CREAM (COMPOUND) TOP PRN (02:49)
[2021-04-11] MEDS: ZOSYN VIAL 2.25 GRAMS 2.25 G in NS 100 ML IV + SPIKE MINIBAG* 100 ML IV SCH ×3 (05:30→23:00)
[2021-04-11] MEDS: SOLU-Medrol 125 MG VIAL IVP SCH ×3 (05:30→23:35)
[2021-04-11] MEDS: APRESOLINE INJ 20 MG VIAL IVP PRN ×2 (05:30→11:59)
[2021-04-11 06:13] LABS: BASOPHILS % (AUTO) 0 % (0.2-1.0); HEMATOCRIT 39.3 % (36.0-47.0); HEMOGLOBIN 12.9 g/dL (12.0-16.0); LYMPHOCYTES # (AUTO) 0.5 X10^3/uL (1.3-2.9); LYMPHOCYTES % (AUTO) 3.9 % (21.0-51.0); MEAN CORPUSCULAR HEMOGLOBIN 28.4 pg (27.0-34.0); MEAN CORPUSCULAR HGB CONC 32.9 g/dL (33.0-35.0); MEAN CORPUSCULAR VOLUME 86.5 fL (80.0-100.0); MEAN PLATELET VOLUME 8.4 fL (7.4-11.0); MONOCYTES # (AUTO) 0.8 x10^3/uL (0.3-0.8); MONOCYTES % (AUTO) 6.2 % (0.0-13.0); NEUTROPHILS % (AUTO) 89.9 % (42.0-75.0); PLATELET COUNT 313 X10^3/uL (150.0-450.0); RED BLOOD COUNT 4.54 X10^6/uL (3.5-5.4); RED CELL DISTRIBUTION WIDTH 14.9 % (11.6-16.5); WHITE BLOOD COUNT 12.2 X10^3/uL (3.6-10.0)
[2021-04-11 06:41] LABS: ALANINE AMINOTRANSFERASE 132 Units/L (12-78); ALBUMIN 2.2 g/dL (3.4-5.0); ALKALINE PHOSPHATASE 134 Units/L (46-116); ASPARTATE AMINO TRANSFERASE 147 Units/L (15-37); BLOOD UREA NITROGEN 15 mg/dL (7-18); CALCIUM 6.9 mg/dL (8.5-10.1); CARBON DIOXIDE 28.4 mmol/L (21-32); COR CA(FOR HYPOALB) 8.3 mg/dL (8.5-10.1); COR NA(FOR HYPERGLY) 156 mmol/L (136-145); CREATININE 0.65 mg/dL (0.55-1.02); MAGNESIUM 2.8 mg/dL (1.7-2.9); eGFR NON BLACK RACES > 60 (>60)
[2021-04-11 07:19] LABS: CHLORIDE 118 mmol/L (98-107); SODIUM 154 mmol/L (136-145)
[2021-04-11] MEDS: PEPCID 20 MG IV PREMIX* 20 MG/50 ML BAG IV SCH (10:00)
[2021-04-11] MEDS: VANCOMYCIN IV *PREMIX 1.25 G/250 ML BAG 1.25 G/250 ML PIGGYBACK IV SCH ×2 (10:00→23:00)
[2021-04-11] MEDS: BROVANA IN SCH ×2 (10:04→20:50)
[2021-04-11] MEDS: PULMICORT NEB TX 0.5 MG NEB SCH ×2 (10:09→20:50)
[2021-04-11] MEDS: VENTOLIN or PROAIR HFA IN SCH ×4 (10:16→20:50)
[2021-04-11] MEDS ORDERED: ZESTRIL TAB 20 MG ONE (10:43)
--- NOTE | 2021-04-11 10:46 | RAD ---
HISTORYCOVID PNEUMONIASTUDYCHES x-ray t, 1 VIEWCOMPARISONX-ray 04/09/2021FINDINGSHeart is normal in size. Bilateral COVID-19 pneumonia may have slightly improved in the right lung. No pneumothorax or pleural effusion is seen.IMPRESSIONLikely mild improvement in prominent COVID-19 pneumonia.Electronically signed by: Madi Baxter (Apr 11, 2021 10:44:32)
[2021-04-11] MEDS: ASPIRIN EC 81 MG PO SCH (10:50)
[2021-04-11] MEDS: BUSPAR PO SCH ×2 (10:52→20:44)
[2021-04-11] MEDS: K-DUR TAB 20 MEQ PO SCH ×3 (10:52→23:35)
[2021-04-11] MEDS: LOVENOX INJ 30 MG SYR SC SCH ×2 (10:52→20:46)
[2021-04-11] MEDS: PAXIL PO SCH (10:53)
[2021-04-11] MEDS: PROTONIX INJ 40 MG VIAL IVP SCH (10:53)
[2021-04-11] MEDS: VITAMIN A PO SCH (10:54)
[2021-04-11] MEDS: VITAMIN D3 125 mcg (5,000 UNITS) PO SCH (10:54)
[2021-04-11] MEDS: ZETIA TAB 10 MG PO SCH (10:55)
[2021-04-11] MEDS: ZESTRIL TAB 20 MG PO SCH (10:55)
[2021-04-11] MEDS: ZINC SULFATE PO SCH ×2 (10:55→20:45)
--- NOTE | 2021-04-11 10:59 | PCM.PROG ---
Progress Note Progress Note for Day of Date of Exam: 04/11/21 Subjective Subjective: Patient seen at bedside, no acute events overnight. Patient remains on BiPAP, FiO2 90% with sats above 92%. She states she feels better. She appears to be in no respiratory distress and has been tolerated BiPAP. Overnight, she did have some diarrhea again and stool studies were ordered. Labs: WBC 12.2 Hgb 12.9 K: 3.3 BUN/Cr: 15/0.65 Na:154 Cl:118 AST/ALT: 147/132 CXR (04/09/21): diffuse bilateral opacities. Stable. CTA: negative for PE, b/l patchy opacities, also showed a thyroid mass/cyst, non-emergent Thyroid U/S recommended Stool Cx: yeast Plan: Will increase D5 to 100 with KCl. Wean off BiPAP as tolerated and switch back to HHFNC, discussed compliance with patient. Repeat CXR. Continue Remdesivir and Zosyn/Azithromycin and Vancomycin. Continue Solumedrol. Continue vitamin support. Continue nebs, pulmicort and IS. Continue buspar for anxiety and melatonin for insomnia. Increase ativan to TID prn. Continue home medications as tolerated. Monitor resp status closely. Follow cultures. Continue hydralazine prn for SBP >160. Patient remains in a critical condition. Monitor AM labs and imaging. Time spent for clinical assessment, reviewing labs/imaging, physical exam, decision making and documentation greater than 75 mins. Past Medical Family Social History Past Med/Fam/Surg Hx: No changes since H&P Allergies: Allergies cortisone Allergy (Verified 04/05/21 13:11) meperidine [From Demerol] Allergy (Verified 04/05/21 13:11) phenobarbital Allergy (Verified 04/05/21 13:11) Review of Systems ROS: No change since H&P Vital Signs and I&O's Vital Signs: Temperature 98.1 F Pulse Rate [Right] 88 Pulse Rate 74 Respiratory Rate 32 Blood Pressure [Right Arm] 177/82 Blood Pressure 163/74 O2 Sat by Pulse Oximetry 92 Intake and Output: Intake & Output 04/08/21 04/09/21 04/10/21 04/11/21 23:59 23:59 23:59 23:59 Intake Total 2040 / 2040 1430 / 1430 2263 / 2263 729 / 729 Output Total Balance 2035 1430 / 1430 2262 / 2262 729 / 729 Physical Exam Oriented: Normal Eyes: Normal Ear: Normal Nose: Normal Throat: Normal Respiratory: Generalized and Diminished Cardiovascular: Normal Auscultation: Bowel Sounds: Normal Tenderness: Normal Skin: Decreased Turgur Musculoskeletal: Normal Psychiatric: Anxiety Mood Description: Anxious Affect: Anxious Speech Pattern: Appropriate Laboratory and Diagnostics Result Diagrams: 04/11/21 04:46 04/11/21 04:46 Labs: 04/05/21 13:15 Blood Blood Culture - Final 04/05/21 13:22 Blood Blood Culture - Final 04/07/21 10:15 Stool Stool Culture - Final 04/07/21 10:15 Stool - Final Laboratory WBC 12.2 X10^3/uL (3.6-10.0) H 04/11/21 04:46 RBC 4.54 X10^6/uL (3.5-5.4) 04/11/21 04:46 Hgb 12.9 g/dL (12.0-16.0) 04/11/21 04:46 Hct 39.3 % (36.0-47.0) 04/11/21 04:46 MCV 86.5 fL (80.0-100.0) 04/11/21 04:46 MCH 28.4 pg (27.0-34.0) 04/11/21 04:46 MCHC 32.9 g/dL (33.0-35.0) L 04/11/21 04:46 RDW 14.9 % (11.6-16.5) 04/11/21 04:46 Plt Count 313 X10^3/uL (150.0-450.0) 04/11/21 04:46 Plt Count Comment Adequate (ADEQUATE) 04/10/21 04:22 MPV 8.4 fL (7.4-11.0) 04/11/21 04:46 Neut % (Auto) 89.9 % (42.0-75.0) H 04/11/21 04:46 Lymph % (Auto) 3.9 % (21.0-51.0) L 04/11/21 04:46 [place] % (Auto) 6.2 % (0.0-13.0) 04/11/21 04:46 Eos % (Auto) 0.0 % (0.9-2.9) L 04/11/21 04:46 Baso % (Auto) 0 % (0.2-1.0) L 04/11/21 04:46 Neut # (Auto) 11.0 x10^3/uL (2.2-4.8) H 04/11/21 04:46 Lymph # (Auto) 0.5 X10^3/uL (1.3-2.9) L 04/11/21 04:46 [place] # (Auto) 0.8 x10^3/uL (0.3-0.8) 04/11/21 04:46 Eos # (Auto) 0.0 x10^3/uL (0.0-0.2) 04/11/21 04:46 Baso # (Auto) 0.0 X10^3/uL (0.0-0.1) 04/11/21 04:46 Absolute Nucleated RBC 0.1 /100WBC 04/11/21 04:46 Total Counted 100 04/10/21 04:22 Neutrophils % (Manual) 88 % (39-76) H 04/10/21 04:22 Lymphocytes % (Manual) 12 % (13-43) L 04/10/21 04:22 Plt Morphology Comment Normal (NORMAL) 04/10/21 04:22 RBC Morphology Normal (NORMAL) 04/10/21 04:22 D-Dimer 1.17 ug/ml (0.0-0.57) H* 04/06/21 08:28 Sample Site Right radial 04/09/21 10:26 ABG pH 7.440 (7.35-7.45) 04/09/21 10:26 ABG pCO2 38.0 mmHg (35.0-45.0) 04/09/21 10:26 ABG pO2 74.0 mmHg (80.0-100.0) L 04/09/21 10:26 ABG HCO3 25.8 mmol/L (22-26) 04/09/21 10:26 ABG O2 Saturation 95.0 % (90-100) 04/09/21 10:26 ABG Base Excess 1.7 mmol/L (-2.0-2.0) 04/09/21 10:26 Ed Test Na 04/09/21 10:26 A-a Gradient 342.0 mmHg 04/09/21 10:26 FiO2 65.0 04/09/21 10:26 Blood Gas Comments Tio well aw 04/09/21 10:26 Sodium 154 mmol/L (136-145) H* 04/11/21 04:46 Corrected Sodium 156 mmol/L (136-145) H 04/11/21 04:46 Potassium 3.3 mmol/L (3.5-5.1) L 04/11/21 04:46 Chloride 118 mmol/L (98-107) H* 04/11/21 04:46 Carbon Dioxide 28.4 mmol/L (21-32) 04/11/21 04:46 BUN 15 mg/dL (7-18) 04/11/21 04:46 Creatinine 0.65 mg/dL (0.55-1.02) 04/11/21 04:46 Est GFR (MDRD) Af Amer > 60 (>60) 04/11/21 04:46 Est GFR (MDRD) Non-Af > 60 (>60) 04/11/21 04:46 Glucose 192 mg/dL (65-99) H 04/11/21 04:46 Lactic Acid 1.2 mmol/L (0.4-2.0) 04/05/21 13:22 Calcium 6.9 mg/dL (8.5-10.1) L 04/11/21 04:46 Corrected Calcium 8.3 mg/dL (8.5-10.1) L 04/11/21 04:46 Magnesium 2.8 mg/dL (1.7-2.9) 04/11/21 04:46 Total Bilirubin 1.30 mg/dL (0.2-1.0) H 04/11/21 04:46 AST 147 Units/L (15-37) H 04/11/21 04:46 ALT 132 Units/L (12-78) H 04/11/21 04:46 Alkaline Phosphatase 134 Units/L (46-116) H 04/11/21 04:46 Creatine Kinase 169 Units/L (26-192) 04/05/21 13:22 CK-MB (CK-2) 1.1 ng/mL (0-4.0) 04/05/21 13:22 CK/CKMB % Calc 0.7 % (<4) 04/05/21 13:22 Troponin I 0.02 ng/mL (0-1.5) 04/06/21 06:16 C-Reactive Protein 27.20 mg/L (0-3.0) H 04/10/21 04:22 Total Protein 5.0 g/dL (6.4-8.2) L 04/11/21 04:46 Albumin 2.2 g/dL (3.4-5.0) L 04/11/21 04:46 Globulin 2.8 g/dL (2.5-4.5) 04/11/21 04:46 Albumin/Globulin Ratio 0.8 Ratio (1.1-2.1) L 04/11/21 04:46 Lipase 368 Units/L (73-393) 04/05/21 13:22 Specimen Type Clean catch urine 04/05/21 13:24 Urine Color Straw (YELLOW) 04/05/21 13:24 Urine Appearance Clear (CLEAR) 04/05/21 13:24 Urine pH 7.0 (5.0 - 8.0) 04/05/21 13:24 Ur Specific [place] 1.010 (1.000-1.030) 04/05/21 13:24 Urine Protein 1+ (NEGATIVE) 04/05/21 13:24 Urine Glucose (UA) Negative (NEGATIVE) 04/05/21 13:24 Urine Ketones Negative (NEGATIVE) 04/05/21 13:24 Urine Occult Blood 1+ (NEGATIVE) 04/05/21 13:24 Urine Nitrite Negative (NEGATIVE) 04/05/21 13:24 Urine Bilirubin Negative (NEGATIVE) 04/05/21 13:24 Urine Urobilinogen Normal (NORMAL) 04/05/21 13:24 Ur Leukocyte Esterase Negative (NEGATIVE) 04/05/21 13:24 Urine RBC 5-10 /HPF (0-3) A 04/05/21 13:24 Urine WBC 0-2 /HPF (0-5) 04/05/21 13:24 Ur Squamous Epith Cells Few /HPF (NEGATIVE) 04/05/21 13:24 Amorphous Sediment Trace /HPF (NEGATIVE) 04/05/21 13:24 Urine Bacteria Trace /HPF (NEGATIVE) 04/05/21 13:24 Ur Culture Indicated? No/not indicated 04/05/21 13:24 Stool Description 5g green mucoid 04/07/21 10:15 Stl Occult Blood (IFOB) Positive (NEGATIVE) A 04/07/21 10:15 Stl C. diff Tox B Gene Negative (NEGATIVE) 04/07/21 10:15 Stl C. diff [id number] Presumptive negative (NEGATIVE) 04/07/21 10:15 Random Vancomycin 8.2 ug/mL 04/09/21 08:25 SARS-CoV-2 (PCR) Positive (NEGATIVE) A 04/05/21 13:45 Influenza Type A (PCR) Negative (NEGATIVE) 04/05/21 13:45 Influenza Type B (PCR) Negative (NEGATIVE) 04/05/21 13:45 RSV (PCR) Negative (NEGATIVE) 04/05/21 13:45 SARS CoV-2 RNA Rapid OLYA Positive (NEGATIVE) A 04/05/21 13:24 Plan (1) Pneumonia due to COVID-19 virus: Status: Acute (2) Acute respiratory failure with hypoxia: Status: Acute (3) Diarrhea: Status: Acute Qualifiers: Diarrhea type: unspecified type Qualified Code(s): R19.7 - Diarrhea, unspecified (4) Hypokalemia: Status: Acute (5) HTN (hypertension): Status: Acute Qualifiers: Hypertension type: primary hypertension Qualified Code(s): I10 - Essential (primary) hypertension (6) Hypernatremia: Status: Acute
[2021-04-11] MEDS ORDERED: PHARMACY COMMENT IV ONE (20:30)
[2021-04-11] MEDS: MELATONIN PO SCH (20:45)
[2021-04-11] MEDS: ZITHROMAX INJ 500 MG VIAL 250 MG in NS 250 ML IV 250 ML IV SCH (20:46)
[2021-04-11] MEDS: TESSALON PERLES PO PRN (20:57)
[2021-04-12] MEDS: D5W 1000 ML IV 1,000 ML with POTASSIUM CHLORIDE INJ 40 MEQ VIAL 40 MEQ IV SCH ×6 (01:40→16:00)
[2021-04-12] MEDS: ASCORBIC ACID INJ MULTI-DOSE VIAL 1,500 MG in NS 100 ML IV 100 ML IV SCH ×4 (02:51→21:43)
[2021-04-12] MEDS: SOLU-Medrol 125 MG VIAL IVP SCH ×3 (05:53→21:43)
[2021-04-12] MEDS: ATIVAN INJ 2 MG VIAL IVP PRN ×2 (05:54→17:50)
[2021-04-12] MEDS: ZOSYN VIAL 2.25 GRAMS 2.25 G in NS 100 ML IV + SPIKE MINIBAG* 100 ML IV SCH ×3 (05:54→22:02)
[2021-04-12 08:45] LABS: BASOPHILS % (AUTO) 0.2 % (0.2-1.0); EOSINOPHILS % (AUTO) 0.1 % (0.9-2.9); HEMATOCRIT 38.6 % (36.0-47.0); HEMOGLOBIN 12.6 g/dL (12.0-16.0); LYMPHOCYTES # (AUTO) 0.4 X10^3/uL (1.3-2.9); LYMPHOCYTES % (AUTO) 3.7 % (21.0-51.0); MEAN CORPUSCULAR HEMOGLOBIN 28.2 pg (27.0-34.0); MEAN CORPUSCULAR HGB CONC 32.7 g/dL (33.0-35.0); MEAN CORPUSCULAR VOLUME 86.4 fL (80.0-100.0); MEAN PLATELET VOLUME 8.5 fL (7.4-11.0); MONOCYTES # (AUTO) 0.3 x10^3/uL (0.3-0.8); MONOCYTES % (AUTO) 2.6 % (0.0-13.0); NEUTROPHILS # (AUTO) 10.8 x10^3/uL (2.2-4.8); NEUTROPHILS % (AUTO) 93.4 % (42.0-75.0); PLATELET COUNT 290 X10^3/uL (150.0-450.0); RED BLOOD COUNT 4.47 X10^6/uL (3.5-5.4); RED CELL DISTRIBUTION WIDTH 14.8 % (11.6-16.5); WHITE BLOOD COUNT 11.6 X10^3/uL (3.6-10.0)
[2021-04-12] MEDS ORDERED: ZESTRIL TAB 20 MG ONE (08:49)
[2021-04-12] MEDS: ZESTRIL TAB 20 MG PO SCH (08:56)
[2021-04-12] MEDS: ASPIRIN EC 81 MG PO SCH (08:56)
[2021-04-12] MEDS: K-DUR TAB 20 MEQ PO SCH ×2 (08:57→21:59)
[2021-04-12] MEDS: BUSPAR PO SCH ×2 (08:57→21:43)
[2021-04-12] MEDS: LOVENOX INJ 30 MG SYR SC SCH ×2 (08:57→21:59)
[2021-04-12] MEDS: PROTONIX INJ 40 MG VIAL IVP SCH (08:58)
[2021-04-12] MEDS: PAXIL PO SCH (08:58)
[2021-04-12] MEDS: ZETIA TAB 10 MG PO SCH (08:59)
[2021-04-12] MEDS: VITAMIN A PO SCH (08:59)
[2021-04-12] MEDS: VITAMIN D3 125 mcg (5,000 UNITS) PO SCH (08:59)
[2021-04-12] MEDS: ZINC SULFATE PO SCH ×2 (09:00→21:43)
[2021-04-12] MEDS: APRESOLINE INJ 20 MG VIAL IVP PRN ×3 (09:01→23:27)
[2021-04-12 09:02] LABS: PLATELET MORPHOLOGY COMMENT NORMAL (NORMAL)
[2021-04-12 09:09] LABS: ALANINE AMINOTRANSFERASE 138 Units/L (12-78); ALBUMIN 2.2 g/dL (3.4-5.0); ALKALINE PHOSPHATASE 184 Units/L (46-116); ASPARTATE AMINO TRANSFERASE 126 Units/L (15-37); BLOOD UREA NITROGEN 11 mg/dL (7-18); CALCIUM 6.8 mg/dL (8.5-10.1); CARBON DIOXIDE 24.9 mmol/L (21-32); CHLORIDE 113 mmol/L (98-107); COR CA(FOR HYPOALB) 8.2 mg/dL (8.5-10.1); COR NA(FOR HYPERGLY) 147 mmol/L (136-145); CREATININE 0.56 mg/dL (0.55-1.02); MAGNESIUM 2.6 mg/dL (1.7-2.9); SODIUM 145 mmol/L (136-145); TOTAL PROTEIN 5.1 g/dL (6.4-8.2); eGFR NON BLACK RACES > 60 (>60)
[2021-04-12] MEDS: PULMICORT NEB TX 0.5 MG NEB SCH ×2 (09:34→21:00)
[2021-04-12] MEDS: BROVANA IN SCH ×2 (09:34→21:00)
[2021-04-12] MEDS: PEPCID 20 MG IV PREMIX* 20 MG/50 ML BAG IV SCH (09:40)
[2021-04-12] MEDS: VENTOLIN or PROAIR HFA IN SCH ×4 (09:56→21:00)
[2021-04-12] MEDS: VANCOMYCIN IV *PREMIX 1.25 G/250 ML BAG 1.25 G/250 ML PIGGYBACK IV SCH ×2 (10:00→21:59)
--- NOTE | 2021-04-12 10:25 | PCM.PROG ---
Progress Note Progress Note for Day of Date of Exam: 04/12/21 Subjective Subjective: Patient seen at bedside, no acute events overnight. Patient remains on BiPAP, FiO2 decreased to 70% with sats above 92%. She states she feels better. She appears to be in no respiratory distress and has been tolerating BiPAP. Labs: WBC 11.6 Hgb 12.6 K: 4 BUN/Cr: 11/0.56 Na:145 Cl:113 AST/ALT: 126/138 CTA: negative for PE, b/l patchy opacities, also showed a thyroid mass/cyst, non-emergent Thyroid U/S recommended Stool Cx: yeast CXR(04/11/21): mild improvement in bilateral opacities Echo: EF 57% normal wall motion, mild pulmonary HTN Plan: Wean off BiPAP as tolerated and switch back to FNC for eating. Continue Remdesivir and Zosyn/Azithromycin and Vancomycin. Continue Solumedrol. Continue vitamin support. Continue nebs, pulmicort and IS. Will derease IVF to 75cc/hr. Continue buspar for anxiety and melatonin for insomnia. Continue ativan TID prn. Continue home medications as tolerated. Monitor resp status closely. Follow cultures. Continue hydralazine prn for SBP >160. Patient remains in a critical condition. Monitor AM labs and imaging. Time spent for clinical assessment, reviewing labs/imaging, physical exam, decision making and documentation greater than 75 mins. Past Medical Family Social History Past Med/Fam/Surg Hx: No changes since H&P Allergies: Allergies cortisone Allergy (Verified 04/05/21 13:11) meperidine [From Demerol] Allergy (Verified 04/05/21 13:11) phenobarbital Allergy (Verified 04/05/21 13:11) Review of Systems ROS: No change since H&P Vital Signs and I&O's Vital Signs: Temperature 97.6 F Pulse Rate [Right] 88 Pulse Rate 72 Respiratory Rate 35 Blood Pressure [Right Arm] 177/82 Blood Pressure 188/85 O2 Sat by Pulse Oximetry 94 Intake and Output: Intake & Output 04/09/21 04/10/21 04/11/21 04/12/21 23:59 23:59 23:59 23:59 Intake Total 1430 / 1430 2263 / 2263 2410 / 2410 1018 / 1018 Balance 1430 / 1430 2263 / 2263 2410 / 2410 1018 / 1018 Physical Exam Oriented: Normal Eyes: Normal Ear: Normal Nose: Normal Throat: Normal Respiratory: Generalized and Diminished Cardiovascular: Normal Auscultation: Bowel Sounds: Normal Tenderness: Normal Skin: Decreased Turgur Musculoskeletal: Normal Psychiatric: Normal Mood Description: Calm Affect: Normal Speech Pattern: Clear and Appropriate Laboratory and Diagnostics Result Diagrams: 04/12/21 08:16 04/12/21 08:16 Labs: 04/05/21 13:15 Blood Blood Culture - Final 04/05/21 13:22 Blood Blood Culture - Final 04/07/21 10:15 Stool Stool Culture - Final 04/07/21 10:15 Stool - Final Laboratory WBC 11.6 X10^3/uL (3.6-10.0) H 04/12/21 08:16 RBC 4.47 X10^6/uL (3.5-5.4) 04/12/21 08:16 Hgb 12.6 g/dL (12.0-16.0) 04/12/21 08:16 Hct 38.6 % (36.0-47.0) 04/12/21 08:16 MCV 86.4 fL (80.0-100.0) 04/12/21 08:16 MCH 28.2 pg (27.0-34.0) 04/12/21 08:16 MCHC 32.7 g/dL (33.0-35.0) L 04/12/21 08:16 RDW 14.8 % (11.6-16.5) 04/12/21 08:16 Plt Count 290 X10^3/uL (150.0-450.0) 04/12/21 08:16 Plt Count Comment Adequate (ADEQUATE) 04/12/21 08:16 MPV 8.5 fL (7.4-11.0) 04/12/21 08:16 Neut % (Auto) 93.4 % (42.0-75.0) H 04/12/21 08:16 Lymph % (Auto) 3.7 % (21.0-51.0) L 04/12/21 08:16 [place] % (Auto) 2.6 % (0.0-13.0) 04/12/21 08:16 Eos % (Auto) 0.1 % (0.9-2.9) L 04/12/21 08:16 Baso % (Auto) 0.2 % (0.2-1.0) 04/12/21 08:16 Neut # (Auto) 10.8 x10^3/uL (2.2-4.8) H 04/12/21 08:16 Lymph # (Auto) 0.4 X10^3/uL (1.3-2.9) L 04/12/21 08:16 [place] # (Auto) 0.3 x10^3/uL (0.3-0.8) 04/12/21 08:16 Eos # (Auto) 0.0 x10^3/uL (0.0-0.2) 04/12/21 08:16 Baso # (Auto) 0.0 X10^3/uL (0.0-0.1) 04/12/21 08:16 Absolute Nucleated RBC 0.1 /100WBC 04/12/21 08:16 Total Counted 100 04/12/21 08:16 Neutrophils % (Manual) 96 % (39-76) H 04/12/21 08:16 Lymphocytes % (Manual) 3 % (13-43) L 04/12/21 08:16 Monocytes % (Manual) 1 % (4-9) L 04/12/21 08:16 Plt Morphology Comment Normal (NORMAL) 04/12/21 08:16 RBC Morphology Normal (NORMAL) 04/12/21 08:16 D-Dimer 1.17 ug/ml (0.0-0.57) H* 04/06/21 08:28 Sample Site Right radial 04/09/21 10:26 ABG pH 7.440 (7.35-7.45) 04/09/21 10:26 ABG pCO2 38.0 mmHg (35.0-45.0) 04/09/21 10:26 ABG pO2 74.0 mmHg (80.0-100.0) L 04/09/21 10:26 ABG HCO3 25.8 mmol/L (22-26) 04/09/21 10:26 ABG O2 Saturation 95.0 % (90-100) 04/09/21 10:26 ABG Base Excess 1.7 mmol/L (-2.0-2.0) 04/09/21 10:26 Ed Test Na 04/09/21 10:26 A-a Gradient 342.0 mmHg 04/09/21 10:26 FiO2 65.0 04/09/21 10:26 Blood Gas Comments Tio well aw 04/09/21 10:26 Sodium 145 mmol/L (136-145) 04/12/21 08:16 Corrected Sodium 147 mmol/L (136-145) H 04/12/21 08:16 Potassium 4.0 mmol/L (3.5-5.1) 04/12/21 08:16 Chloride 113 mmol/L (98-107) H 04/12/21 08:16 Carbon Dioxide 24.9 mmol/L (21-32) 04/12/21 08:16 BUN 11 mg/dL (7-18) 04/12/21 08:16 Creatinine 0.56 mg/dL (0.55-1.02) 04/12/21 08:16 Est GFR (MDRD) Af Amer > 60 (>60) 04/12/21 08:16 Est GFR (MDRD) Non-Af > 60 (>60) 04/12/21 08:16 Glucose 196 mg/dL (65-99) H 04/12/21 08:16 Lactic Acid 1.2 mmol/L (0.4-2.0) 04/05/21 13:22 Calcium 6.8 mg/dL (8.5-10.1) L 04/12/21 08:16 Corrected Calcium 8.2 mg/dL (8.5-10.1) L 04/12/21 08:16 Magnesium 2.6 mg/dL (1.7-2.9) 04/12/21 08:16 Total Bilirubin 1.60 mg/dL (0.2-1.0) H 04/12/21 08:16 AST 126 Units/L (15-37) H 04/12/21 08:16 ALT 138 Units/L (12-78) H 04/12/21 08:16 Alkaline Phosphatase 184 Units/L (46-116) H 04/12/21 08:16 Creatine Kinase 169 Units/L (26-192) 04/05/21 13:22 CK-MB (CK-2) 1.1 ng/mL (0-4.0) 04/05/21 13:22 CK/CKMB % Calc 0.7 % (<4) 04/05/21 13:22 Troponin I 0.02 ng/mL (0-1.5) 04/06/21 06:16 C-Reactive Protein 10.50 mg/L (0-3.0) H 04/12/21 08:16 Total Protein 5.1 g/dL (6.4-8.2) L 04/12/21 08:16 Albumin 2.2 g/dL (3.4-5.0) L 04/12/21 08:16 Globulin 2.9 g/dL (2.5-4.5) 04/12/21 08:16 Albumin/Globulin Ratio 0.8 Ratio (1.1-2.1) L 04/12/21 08:16 Lipase 368 Units/L (73-393) 04/05/21 13:22 Specimen Type Clean catch urine 04/05/21 13:24 Urine Color Straw (YELLOW) 04/05/21 13:24 Urine Appearance Clear (CLEAR) 04/05/21 13:24 Urine pH 7.0 (5.0 - 8.0) 04/05/21 13:24 Ur Specific Koppel 1.010 (1.000-1.030) 04/05/21 13:24 Urine Protein 1+ (NEGATIVE) 04/05/21 13:24 Urine Glucose (UA) Negative (NEGATIVE) 04/05/21 13:24 Urine Ketones Negative (NEGATIVE) 04/05/21 13:24 Urine Occult Blood 1+ (NEGATIVE) 04/05/21 13:24 Urine Nitrite Negative (NEGATIVE) 04/05/21 13:24 Urine Bilirubin Negative (NEGATIVE) 04/05/21 13:24 Urine Urobilinogen Normal (NORMAL) 04/05/21 13:24 Ur Leukocyte Esterase Negative (NEGATIVE) 04/05/21 13:24 Urine RBC 5-10 /HPF (0-3) A 04/05/21 13:24 Urine WBC 0-2 /HPF (0-5) 04/05/21 13:24 Ur Squamous Epith Cells Few /HPF (NEGATIVE) 04/05/21 13:24 Amorphous Sediment Trace /HPF (NEGATIVE) 04/05/21 13:24 Urine Bacteria Trace /HPF (NEGATIVE) 04/05/21 13:24 Ur Culture Indicated? No/not indicated 04/05/21 13:24 Stool Description 5g green mucoid 04/07/21 10:15 Stl Occult Blood (IFOB) Positive (NEGATIVE) A 04/07/21 10:15 Stl C. diff Tox B Gene Negative (NEGATIVE) 04/07/21 10:15 Stl C. diff [id number] Presumptive negative (NEGATIVE) 04/07/21 10:15 Random Vancomycin 11.9 ug/mL 04/11/21 21:00 SARS-CoV-2 (PCR) Positive (NEGATIVE) A 04/05/21 13:45 Influenza Type A (PCR) Negative (NEGATIVE) 04/05/21 13:45 Influenza Type B (PCR) Negative (NEGATIVE) 04/05/21 13:45 RSV (PCR) Negative (NEGATIVE) 04/05/21 13:45 SARS CoV-2 RNA Rapid OLYA Positive (NEGATIVE) A 04/05/21 13:24 Plan (1) Pneumonia due to COVID-19 virus: Status: Acute (2) Acute respiratory failure with hypoxia: Status: Acute (3) Diarrhea: Status: Acute Qualifiers: Diarrhea type: unspecified type Qualified Code(s): R19.7 - Diarrhea, unspecified (4) Hypokalemia: Status: Acute (5) HTN (hypertension): Status: Acute Qualifiers: Hypertension type: primary hypertension Qualified Code(s): I10 - Essential (primary) hypertension (6) Hypernatremia: Status: Acute
[2021-04-12 13:11] VITALS: BMI 33.6
[2021-04-12] MEDS: ZITHROMAX INJ 500 MG VIAL 250 MG in NS 250 ML IV 250 ML IV SCH (21:43)
[2021-04-12] MEDS: MELATONIN PO SCH (21:59)
[2021-04-13] MEDS: D5W 1000 ML IV 1,000 ML with POTASSIUM CHLORIDE INJ 40 MEQ VIAL 40 MEQ IV SCH ×6 (03:01→19:53)
[2021-04-13] MEDS: ASCORBIC ACID INJ MULTI-DOSE VIAL 1,500 MG in NS 100 ML IV 100 ML IV SCH ×4 (03:01→20:18)
[2021-04-13] MEDS: SOLU-Medrol 125 MG VIAL IVP SCH ×2 (05:43→16:34)
[2021-04-13] MEDS: ZOSYN VIAL 2.25 GRAMS 2.25 G in NS 100 ML IV + SPIKE MINIBAG* 100 ML IV SCH ×3 (05:44→22:56)
[2021-04-13 06:20] LABS: BASOPHILS # (AUTO) 0.1 X10^3/uL (0.0-0.1); BASOPHILS % (AUTO) 0.4 % (0.2-1.0); HEMATOCRIT 41.1 % (36.0-47.0); HEMOGLOBIN 13.6 g/dL (12.0-16.0); LYMPHOCYTES # (AUTO) 0.6 X10^3/uL (1.3-2.9); LYMPHOCYTES % (AUTO) 3.9 % (21.0-51.0); MEAN CORPUSCULAR HEMOGLOBIN 28.7 pg (27.0-34.0); MEAN CORPUSCULAR HGB CONC 33.1 g/dL (33.0-35.0); MEAN CORPUSCULAR VOLUME 86.8 fL (80.0-100.0); MEAN PLATELET VOLUME 9.2 fL (7.4-11.0); MONOCYTES # (AUTO) 0.7 x10^3/uL (0.3-0.8); MONOCYTES % (AUTO) 4.5 % (0.0-13.0); NEUTROPHILS # (AUTO) 14.3 x10^3/uL (2.2-4.8); NEUTROPHILS % (AUTO) 91.2 % (42.0-75.0); PLATELET COUNT 329 X10^3/uL (150.0-450.0); RED BLOOD COUNT 4.74 X10^6/uL (3.5-5.4); WHITE BLOOD COUNT 15.7 X10^3/uL (3.6-10.0)
[2021-04-13 06:55] LABS: ALANINE AMINOTRANSFERASE 145 Units/L (12-78); ALBUMIN 2.5 g/dL (3.4-5.0); ALKALINE PHOSPHATASE 231 Units/L (46-116); ASPARTATE AMINO TRANSFERASE 121 Units/L (15-37); BLOOD UREA NITROGEN 11 mg/dL (7-18); CALCIUM 7.1 mg/dL (8.5-10.1); CARBON DIOXIDE 24.3 mmol/L (21-32); CHLORIDE 113 mmol/L (98-107); COR CA(FOR HYPOALB) 8.3 mg/dL (8.5-10.1); COR NA(FOR HYPERGLY) 148 mmol/L (136-145); CREATININE 0.65 mg/dL (0.55-1.02); SODIUM 146 mmol/L (136-145); TOTAL PROTEIN 5.4 g/dL (6.4-8.2); eGFR NON BLACK RACES > 60 (>60)
[2021-04-13] MEDS ORDERED: ZESTRIL TAB 20 MG ONE (07:30)
[2021-04-13] MEDS: APRESOLINE INJ 20 MG VIAL IVP PRN (07:37)
[2021-04-13] MEDS: ATIVAN INJ 2 MG VIAL IVP PRN ×2 (07:38→15:40)
[2021-04-13 07:41] LABS: BAND NEUTROPHILS % 3 % (0-10); METAMYELOCYTES % 1; PLATELET MORPHOLOGY COMMENT NORMAL (NORMAL)
[2021-04-13] MEDS: ASPIRIN EC 81 MG PO SCH (09:26)
[2021-04-13] MEDS: BUSPAR PO SCH ×2 (09:27→21:45)
[2021-04-13] MEDS: K-DUR TAB 20 MEQ PO SCH ×2 (09:27→21:45)
[2021-04-13] MEDS: PEPCID 20 MG IV PREMIX* 20 MG/50 ML BAG IV SCH (09:28)
[2021-04-13] MEDS: PROTONIX INJ 40 MG VIAL IVP SCH (09:28)
[2021-04-13] MEDS: PAXIL PO SCH (09:28)
[2021-04-13] MEDS: VITAMIN A PO SCH (09:29)
[2021-04-13] MEDS: ZINC SULFATE PO SCH ×2 (09:29→21:45)
[2021-04-13] MEDS: VITAMIN D3 125 mcg (5,000 UNITS) PO SCH (09:29)
[2021-04-13] MEDS: ZETIA TAB 10 MG PO SCH (09:30)
[2021-04-13] MEDS: ZESTRIL TAB 20 MG PO SCH (09:30)
[2021-04-13] MEDS: PULMICORT NEB TX 0.5 MG NEB SCH ×2 (09:30→21:34)
[2021-04-13] MEDS: BROVANA IN SCH ×2 (09:30→21:34)
[2021-04-13] MEDS: VANCOMYCIN IV *PREMIX 1.25 G/250 ML BAG 1.25 G/250 ML PIGGYBACK IV SCH ×2 (10:00→20:56)
[2021-04-13] MEDS: LOVENOX INJ 30 MG SYR SC SCH ×2 (10:00→21:45)
[2021-04-13] MEDS ORDERED: MORPHINE SULFATE INJ 2 MG INJ IVP PRN (10:03)
--- NOTE | 2021-04-13 13:00 | PCM.PROG ---
Progress Note Progress Note for Day of Date of Exam: 04/13/21 Subjective Subjective: Patient seen at bedside, no acute events overnight. Patient remains on BiPAP, FiO2 decreased to 65% with sats above 92%. She did tolerate HHFNC for a bit yesterday but kept on pulling it out. She also keeps pulling at the mask at times. She does not appear to be in any respiratory distress. Labs: WBC 15.7 Hgb 13.6 K: 4 BUN/Cr: 11/0.65 Na:146 Cl:113 AST/ALT: 121/145 CTA: negative for PE, b/l patchy opacities, also showed a thyroid mass/cyst, non-emergent Thyroid U/S recommended Stool Cx: yeast CXR(04/11/21): mild improvement in bilateral opacities Echo: EF 57% normal wall motion, mild pulmonary HTN Plan: Wean off BiPAP as tolerated and switch back to HHFNC for eating. Continue Remdesivir and Zosyn/Azithromycin and Vancomycin. Continue Solumedrol. Continue vitamin support. Continue nebs, pulmicort and IS. Continue D5 at 100cc/hr, patient has only been eating a few bites. Continue buspar for anxiety and melatonin for insomnia. Will add morphine prn for pain control. Continue ativan TID prn. Continue home medications as tolerated. Monitor resp status closely. Follow cultures. Continue hydralazine prn for SBP >160. Patient remains in a critical condition. Monitor AM labs and imaging. Time spent for clinical assessment, reviewing labs/imaging, physical exam, decision making and documentation greater than 75 mins. Past Medical Family Social History Past Med/Fam/Surg Hx: No changes since H&P Allergies: Allergies cortisone Allergy (Verified 04/05/21 13:11) meperidine [From Demerol] Allergy (Verified 04/05/21 13:11) phenobarbital Allergy (Verified 04/05/21 13:11) Review of Systems ROS: No change since H&P Vital Signs and I&O's Vital Signs: Temperature 99.1 F Pulse Rate [Right] 88 Pulse Rate 85 Respiratory Rate 31 Blood Pressure [Right Arm] 177/82 Blood Pressure 174/81 O2 Sat by Pulse Oximetry 95 Intake and Output: Intake & Output 08/08/21 08/09/21 08/10/21 08/11/21 23:59 23:59 23:59 23:59 Intake Total 2262 / 2262 2410 / 2410 3449 / 3449 1070 / 1070 Balance 2262 / 2262 2410 / 2410 3449 / 3449 1070 / 1070 Physical Exam Oriented: Normal Eyes: Normal Ear: Normal Nose: Normal Throat: Normal Respiratory: Generalized and Diminished Cardiovascular: Normal Auscultation: Bowel Sounds: Normal Tenderness: Normal Skin: Decreased Turgur Musculoskeletal: Normal Psychiatric: Normal Mood Description: Calm Affect: Normal Speech Pattern: Clear and Appropriate Laboratory and Diagnostics Result Diagrams: 04/13/21 04:35 04/13/21 04:35 Labs: 04/05/21 13:15 Blood Blood Culture - Final 04/05/21 13:22 Blood Blood Culture - Final 04/07/21 10:15 Stool Stool Culture - Final 04/07/21 10:15 Stool - Final Laboratory WBC 15.7 X10^3/uL (3.6-10.0) H 04/13/21 04:35 RBC 4.74 X10^6/uL (3.5-5.4) 04/13/21 04:35 Hgb 13.6 g/dL (12.0-16.0) 04/13/21 04:35 Hct 41.1 % (36.0-47.0) 04/13/21 04:35 MCV 86.8 fL (80.0-100.0) 04/13/21 04:35 MCH 28.7 pg (27.0-34.0) 04/13/21 04:35 MCHC 33.1 g/dL (33.0-35.0) 04/13/21 04:35 RDW 15.0 % (11.6-16.5) 04/13/21 04:35 Plt Count 329 X10^3/uL (150.0-450.0) 04/13/21 04:35 Plt Count Comment Adequate (ADEQUATE) 04/13/21 04:35 MPV 9.2 fL (7.4-11.0) 04/13/21 04:35 Neut % (Auto) 91.2 % (42.0-75.0) H 04/13/21 04:35 Lymph % (Auto) 3.9 % (21.0-51.0) L 04/13/21 04:35 [place] % (Auto) 4.5 % (0.0-13.0) 04/13/21 04:35 Eos % (Auto) 0.0 % (0.9-2.9) L 04/13/21 04:35 Baso % (Auto) 0.4 % (0.2-1.0) 04/13/21 04:35 Neut # (Auto) 14.3 x10^3/uL (2.2-4.8) H 04/13/21 04:35 Lymph # (Auto) 0.6 X10^3/uL (1.3-2.9) L 04/13/21 04:35 [place] # (Auto) 0.7 x10^3/uL (0.3-0.8) 04/13/21 04:35 Eos # (Auto) 0.0 x10^3/uL (0.0-0.2) 04/13/21 04:35 Baso # (Auto) 0.1 X10^3/uL (0.0-0.1) 04/13/21 04:35 Absolute Nucleated RBC 0.2 /100WBC 04/13/21 04:35 Total Counted 100 04/13/21 04:35 Neutrophils % (Manual) 92 % (39-76) H 04/13/21 04:35 Band Neutrophils % 3 % (0-10) 04/13/21 04:35 Lymphocytes % (Manual) Not Reportable 04/13/21 04:35 Monocytes % (Manual) 4 % (4-9) 04/13/21 04:35 Metamyelocytes % 1 04/13/21 04:35 Plt Morphology Comment Normal (NORMAL) 04/13/21 04:35 RBC Morphology Normal (NORMAL) 04/13/21 04:35 D-Dimer 1.17 ug/ml (0.0-0.57) H* 04/06/21 08:28 Sample Site Right radial 04/09/21 10:26 ABG pH 7.440 (7.35-7.45) 04/09/21 10:26 ABG pCO2 38.0 mmHg (35.0-45.0) 04/09/21 10:26 ABG pO2 74.0 mmHg (80.0-100.0) L 04/09/21 10:26 ABG HCO3 25.8 mmol/L (22-26) 04/09/21 10:26 ABG O2 Saturation 95.0 % (90-100) 04/09/21 10:26 ABG Base Excess 1.7 mmol/L (-2.0-2.0) 04/09/21 10:26 Ed Test Na 04/09/21 10:26 A-a Gradient 342.0 mmHg 04/09/21 10:26 FiO2 65.0 04/09/21 10:26 Blood Gas Comments Tio well aw 04/09/21 10:26 Sodium 146 mmol/L (136-145) H 04/13/21 04:35 Corrected Sodium 148 mmol/L (136-145) H 04/13/21 04:35 Potassium 4.0 mmol/L (3.5-5.1) 04/13/21 04:35 Chloride 113 mmol/L (98-107) H 04/13/21 04:35 Carbon Dioxide 24.3 mmol/L (21-32) 04/13/21 04:35 BUN 11 mg/dL (7-18) 04/13/21 04:35 Creatinine 0.65 mg/dL (0.55-1.02) 04/13/21 04:35 Est GFR (MDRD) Af Amer > 60 (>60) 04/13/21 04:35 Est GFR (MDRD) Non-Af > 60 (>60) 04/13/21 04:35 Glucose 166 mg/dL (65-99) H 04/13/21 04:35 Lactic Acid 1.2 mmol/L (0.4-2.0) 04/05/21 13:22 Calcium 7.1 mg/dL (8.5-10.1) L 04/13/21 04:35 Corrected Calcium 8.3 mg/dL (8.5-10.1) L 04/13/21 04:35 Magnesium 2.6 mg/dL (1.7-2.9) 04/12/21 08:16 Total Bilirubin 1.60 mg/dL (0.2-1.0) H 04/13/21 04:35 AST 121 Units/L (15-37) H 04/13/21 04:35 ALT 145 Units/L (12-78) H 04/13/21 04:35 Alkaline Phosphatase 231 Units/L (46-116) H 04/13/21 04:35 Creatine Kinase 169 Units/L (26-192) 04/05/21 13:22 CK-MB (CK-2) 1.1 ng/mL (0-4.0) 04/05/21 13:22 CK/CKMB % Calc 0.7 % (<4) 04/05/21 13:22 Troponin I 0.02 ng/mL (0-1.5) 04/06/21 06:16 C-Reactive Protein 8.00 mg/L (0-3.0) H 04/13/21 04:35 Total Protein 5.4 g/dL (6.4-8.2) L 04/13/21 04:35 Albumin 2.5 g/dL (3.4-5.0) L 04/13/21 04:35 Globulin 2.9 g/dL (2.5-4.5) 04/13/21 04:35 Albumin/Globulin Ratio 0.9 Ratio (1.1-2.1) L 04/13/21 04:35 Lipase 368 Units/L (73-393) 04/05/21 13:22 Specimen Type Clean catch urine 04/05/21 13:24 Urine Color Straw (YELLOW) 04/05/21 13:24 Urine Appearance Clear (CLEAR) 04/05/21 13:24 Urine pH 7.0 (5.0 - 8.0) 04/05/21 13:24 Ur Specific [place] 1.010 (1.000-1.030) 04/05/21 13:24 Urine Protein 1+ (NEGATIVE) 04/05/21 13:24 Urine Glucose (UA) Negative (NEGATIVE) 04/05/21 13:24 Urine Ketones Negative (NEGATIVE) 04/05/21 13:24 Urine Occult Blood 1+ (NEGATIVE) 04/05/21 13:24 Urine Nitrite Negative (NEGATIVE) 04/05/21 13:24 Urine Bilirubin Negative (NEGATIVE) 04/05/21 13:24 Urine Urobilinogen Normal (NORMAL) 04/05/21 13:24 Ur Leukocyte Esterase Negative (NEGATIVE) 04/05/21 13:24 Urine RBC 5-10 /HPF (0-3) A 04/05/21 13:24 Urine WBC 0-2 /HPF (0-5) 04/05/21 13:24 Ur Squamous Epith Cells Few /HPF (NEGATIVE) 04/05/21 13:24 Amorphous Sediment Trace /HPF (NEGATIVE) 04/05/21 13:24 Urine Bacteria Trace /HPF (NEGATIVE) 04/05/21 13:24 Ur Culture Indicated? No/not indicated 04/05/21 13:24 Stool Description 5g green mucoid 04/07/21 10:15 Stl Occult Blood (IFOB) Positive (NEGATIVE) A 04/07/21 10:15 Stl C. diff Tox B Gene Negative (NEGATIVE) 04/07/21 10:15 Stl C. diff [id number] Presumptive negative (NEGATIVE) 04/07/21 10:15 Random Vancomycin 11.9 ug/mL 04/11/21 21:00 SARS-CoV-2 (PCR) Positive (NEGATIVE) A 04/05/21 13:45 Influenza Type A (PCR) Negative (NEGATIVE) 04/05/21 13:45 Influenza Type B (PCR) Negative (NEGATIVE) 04/05/21 13:45 RSV (PCR) Negative (NEGATIVE) 04/05/21 13:45 SARS CoV-2 RNA Rapid OLYA Positive (NEGATIVE) A 04/05/21 13:24 Plan (1) Pneumonia due to COVID-19 virus: Status: Acute (2) Acute respiratory failure with hypoxia: Status: Acute (3) Diarrhea: Status: Acute Qualifiers: Diarrhea type: unspecified type Qualified Code(s): R19.7 - Diarrhea, unspecified (4) Hypokalemia: Status: Acute (5) HTN (hypertension): Status: Acute Qualifiers: Hypertension type: primary hypertension Qualified Code(s): I10 - Essential (primary) hypertension (6) Hypernatremia: Status: Acute
[2021-04-13] MEDS ORDERED: MORPHINE SULFATE INJ 2 MG INJ IVP ONE (16:27)
[2021-04-13 16:32] LABS: ABG BASE EXCESS 2.9 mmol/L (-2.0-2.0); ABG HCO3 25.3 mmol/L (22-26)
[2021-04-13 16:34] LABS: ABG ALLEN TEST POS
[2021-04-13 17:51] LABS: BLOOD UREA NITROGEN 12 mg/dL (7-18); CALCIUM 6.9 mg/dL (8.5-10.1); CHLORIDE 113 mmol/L (98-107); COR NA(FOR HYPERGLY) 146 mmol/L (136-145); CREATININE 0.69 mg/dL (0.55-1.02); SODIUM 144 mmol/L (136-145); eGFR NON BLACK RACES > 60 (>60)
--- NOTE | 2021-04-13 17:56 | RAD ---
HISTORYcovid hypoxiaSTUDYCHEST x-ray, 1 VIEWCOMPARISONX-ray 04/11/2021FINDINGSThe trachea is midline. The cardiac silhouette is normal in size.Bilateral lung infiltrates are similar to prior study and likely represent prominent COVID-19 pneumonia no pneumothorax or pleural effusion is seen.No acute bony abnormality is seen.IMPRESSIONPersistent prominent COVID-19 pneumonia.Electronically signed by: Madi Baxter (Apr 13, 2021 17:53:11)
[2021-04-13] MEDS: VENTOLIN or PROAIR HFA IN SCH ×3 (18:12→21:33)
[2021-04-13 19:57] LABS: ABG BASE EXCESS 2.8 mmol/L (-2.0-2.0); ABG HCO3 25.9 mmol/L (22-26)
[2021-04-13 20:58] LABS: BILIRUBIN,URINE NEGATIVE (NEGATIVE); BLOOD/HEMOGLOBIN,URINE 1+ (NEGATIVE); GLUCOSE, URINE NEGATIVE (NEGATIVE); KETONES,URINE NEGATIVE (NEGATIVE); LEUKOCYTE ESTERASE ,URINE NEGATIVE (NEGATIVE); NITRITES,URINE NEGATIVE (NEGATIVE); PROTEIN,URINE 2+ (NEGATIVE); UROBILINOGEN,URINE NORMAL (NORMAL)
[2021-04-13 21:02] LABS: APPEARANCE,URINE CLEAR (CLEAR); COLOR,URINE YELLOW (YELLOW)
[2021-04-13 21:06] LABS: BACTERIA,URINE TRACE /HPF (NEGATIVE); RBC,URINE 0-2 /HPF (0-3); SQUAMOUS EPITHELIAL CELL,UR RARE /HPF (NEGATIVE)
[2021-04-13] MEDS: MELATONIN PO SCH (21:45)
[2021-04-13] MEDS: ZITHROMAX INJ 500 MG VIAL 250 MG in NS 250 ML IV 250 ML IV SCH (21:46)
[2021-04-14] MEDS: D5W 1000 ML IV 1,000 ML with POTASSIUM CHLORIDE INJ 40 MEQ VIAL 40 MEQ IV SCH ×6 (00:43→17:32)
[2021-04-14] MEDS: ASCORBIC ACID INJ MULTI-DOSE VIAL 1,500 MG in NS 100 ML IV 100 ML IV SCH ×4 (03:30→20:33)
[2021-04-14 05:08] LABS: BASOPHILS # (AUTO) 0.1 X10^3/uL (0.0-0.1); BASOPHILS % (AUTO) 0.8 % (0.2-1.0); EOSINOPHILS % (AUTO) 0.1 % (0.9-2.9); HEMATOCRIT 36.3 % (36.0-47.0); HEMOGLOBIN 12.1 g/dL (12.0-16.0); LYMPHOCYTES # (AUTO) 0.5 X10^3/uL (1.3-2.9); LYMPHOCYTES % (AUTO) 3.7 % (21.0-51.0); MEAN CORPUSCULAR HEMOGLOBIN 28.6 pg (27.0-34.0); MEAN CORPUSCULAR HGB CONC 33.3 g/dL (33.0-35.0); MEAN PLATELET VOLUME 8.9 fL (7.4-11.0); MONOCYTES # (AUTO) 1.1 x10^3/uL (0.3-0.8); MONOCYTES % (AUTO) 7.6 % (0.0-13.0); NEUTROPHILS # (AUTO) 12.9 x10^3/uL (2.2-4.8); NEUTROPHILS % (AUTO) 87.8 % (42.0-75.0); PLATELET COUNT 286 X10^3/uL (150.0-450.0); RED BLOOD COUNT 4.22 X10^6/uL (3.5-5.4); RED CELL DISTRIBUTION WIDTH 14.4 % (11.6-16.5); WHITE BLOOD COUNT 14.7 X10^3/uL (3.6-10.0)
[2021-04-14] MEDS: ZOSYN VIAL 2.25 GRAMS 2.25 G in NS 100 ML IV + SPIKE MINIBAG* 100 ML IV SCH ×3 (05:15→22:42)
[2021-04-14 05:36] LABS: ALANINE AMINOTRANSFERASE 110 Units/L (12-78); ALBUMIN 2.4 g/dL (3.4-5.0); ALKALINE PHOSPHATASE 215 Units/L (46-116); ASPARTATE AMINO TRANSFERASE 84 Units/L (15-37); BLOOD UREA NITROGEN 11 mg/dL (7-18); CALCIUM 7.1 mg/dL (8.5-10.1); CHLORIDE 114 mmol/L (98-107); COR CA(FOR HYPOALB) 8.4 mg/dL (8.5-10.1); COR NA(FOR HYPERGLY) 147 mmol/L (136-145); CREATININE 0.58 mg/dL (0.55-1.02); SODIUM 146 mmol/L (136-145); eGFR NON BLACK RACES > 60 (>60)
[2021-04-14] MEDS ORDERED: ZESTRIL TAB 20 MG PO SCH (09:00)
[2021-04-14] MEDS: PULMICORT NEB TX 0.5 MG NEB SCH ×2 (09:05→21:05)
[2021-04-14] MEDS: BROVANA IN SCH ×2 (09:05→21:05)
[2021-04-14] MEDS: VENTOLIN or PROAIR HFA IN SCH ×4 (09:28→21:20)
--- NOTE | 2021-04-14 09:28 | RAD ---
HISTORYPICC LINE PLACEMENTSTUDYCHEST x-ray, 1 VIEWCOMPARISONX-ray 04/13/2021FINDINGSPICC line terminates in the region of the distal SVC. Heart is normal in size. Bilateral pneumonia is unchanged consistent with prominent COVID-19 pneumonia. No pneumothorax or pleural effusion is seen.IMPRESSIONPICC line terminates in the region of the distal SVC.Electronically signed by: Madi Baxter (Apr 14, 2021 09:25:21)
[2021-04-14] MEDS: VITAMIN D3 125 mcg (5,000 UNITS) PO SCH (10:00)
[2021-04-14] MEDS: VITAMIN A PO SCH (10:00)
[2021-04-14] MEDS: ZINC SULFATE PO SCH ×2 (10:00→20:38)
[2021-04-14] MEDS: ASPIRIN EC 81 MG PO SCH (10:00)
[2021-04-14] MEDS: K-DUR TAB 20 MEQ PO SCH ×2 (10:00→20:35)
[2021-04-14] MEDS: SOLU-Medrol 40 MG VIAL IVP SCH ×2 (10:00→20:37)
[2021-04-14] MEDS: ZETIA TAB 10 MG PO SCH (10:00)
[2021-04-14] MEDS: PAXIL PO SCH (10:00)
[2021-04-14] MEDS: PEPCID 20 MG IV PREMIX* 20 MG/50 ML BAG IV SCH (10:00)
[2021-04-14] MEDS: PROTONIX INJ 40 MG VIAL IVP SCH (10:00)
--- NOTE | 2021-04-14 10:29 | PCM.PROG ---
Progress Note Progress Note for Day of Date of Exam: 04/14/21 Subjective Subjective: Patient seen at bedside, no acute events overnight. Yesterday evening, patient became agitated, pulled out IV and was confused while on HHFNC. ABG was done which showed worsening of pO2. Patient was placed back on BiPAP. She was given some morphine which helped her stay calm. She had to be placed in hand restraints to prevent her from pulling at things. She did well overnight, remained on BiPAP at FiO2 75% with sats above 92%. Patient states she feels better today. She does not remember much of yesterday. Staff has been updating patient's son and he states patient does get confused at times. Garcia was also placed. Patient currently only has one IV access. Labs: WBC 14.7 Hgb 12.1 K: 4 BUN/Cr: 11/0.65 Na:146 Cl:114 AST/ALT: 84/110 CTA: negative for PE, b/l patchy opacities, also showed a thyroid mass/cyst, non-emergent Thyroid U/S recommended UA: no signs of infection CXR(04/14/21): similar bilateral infiltrates, no change Echo: EF 57% normal wall motion, mild pulmonary HTN AB.49/34/62/25 sats 93% Plan: Wean off BiPAP as tolerated and switch back to HHFNC for eating. Completed Remdesivir. Patient also received 2 doses of Actemra. DC Vancomycin. Continue Z osyn/Azithromycin. Decrease Solumedrol to 40 mg q12 due to confusion and agitation. Continue vitamin support. Continue nebs, pulmicort and IS. Continue D5 at 100cc/hr, patient has only been eating a few bites. Continue buspar for anxiety and melatonin for insomnia. Continue morphine prn for pain control. Increase lisinopril to 30 mg daily. DC restrains as tolerated. PICC line insertion. Continue home medications as tolerated. Monitor resp status closely. Follow cultures. Continue hydralazine prn for SBP >160. Patient remains in a critical condition. Monitor AM labs and imaging. Time spent for clinical assessment, reviewing labs/imaging, physical exam, decision making and documentation greater than 75 mins. Past Medical Family Social History Past Med/Fam/Surg Hx: No changes since H&P Allergies: Allergies cortisone Allergy (Verified 04/05/21 13:11) meperidine [From Demerol] Allergy (Verified 04/05/21 13:11) phenobarbital Allergy (Verified 04/05/21 13:11) Review of Systems ROS: No change since H&P Vital Signs and I&O's Vital Signs: Temperature 98.9 F Pulse Rate [Right] 88 Pulse Rate 80 Respiratory Rate 30 Blood Pressure [Right Arm] 177/82 Blood Pressure 175/82 O2 Sat by Pulse Oximetry 95 Intake and Output: Intake & Output 04/11/21 04/12/21 04/13/21 04/14/21 23:59 23:59 23:59 23:59 Intake Total 2410 / 2410 3449 / 3449 2088 / 2088 955 / 955 Output Total 650 / 650 1250 / 1250 Balance 2410 / 2410 3449 / 3449 1438 / 1438 -295 / -295 Physical Exam Oriented: Person and Unable to test Eyes: Normal Ear: Normal Nose: Normal Throat: Normal Respiratory: Generalized and Diminished Cardiovascular: Normal Auscultation: Bowel Sounds: Normal Tenderness: Normal Skin: Decreased Turgur Musculoskeletal: Normal Psychiatric: Normal Mood Description: Calm Affect: Normal Speech Pattern: Appropriate and Artificially Ventilated (on BiPAP ) Laboratory and Diagnostics Result Diagrams: 04/14/21 04:13 04/14/21 04:13 Labs: 04/05/21 13:15 Blood Blood Culture - Final 04/05/21 13:22 Blood Blood Culture - Final 04/07/21 10:15 Stool Stool Culture - Final 04/07/21 10:15 Stool - Final Laboratory WBC 14.7 X10^3/uL (3.6-10.0) H 04/14/21 04:13 RBC 4.22 X10^6/uL (3.5-5.4) 04/14/21 04:13 Hgb 12.1 g/dL (12.0-16.0) 04/14/21 04:13 Hct 36.3 % (36.0-47.0) 04/14/21 04:13 MCV 86.0 fL (80.0-100.0) 04/14/21 04:13 MCH 28.6 pg (27.0-34.0) 04/14/21 04:13 MCHC 33.3 g/dL (33.0-35.0) 04/14/21 04:13 RDW 14.4 % (11.6-16.5) 04/14/21 04:13 Plt Count 286 X10^3/uL (150.0-450.0) 04/14/21 04:13 Plt Count Comment Adequate (ADEQUATE) 04/13/21 04:35 MPV 8.9 fL (7.4-11.0) 04/14/21 04:13 Neut % (Auto) 87.8 % (42.0-75.0) H 04/14/21 04:13 Lymph % (Auto) 3.7 % (21.0-51.0) L 04/14/21 04:13 [place] % (Auto) 7.6 % (0.0-13.0) 04/14/21 04:13 Eos % (Auto) 0.1 % (0.9-2.9) L 04/14/21 04:13 Baso % (Auto) 0.8 % (0.2-1.0) 04/14/21 04:13 Neut # (Auto) 12.9 x10^3/uL (2.2-4.8) H 04/14/21 04:13 Lymph # (Auto) 0.5 X10^3/uL (1.3-2.9) L 04/14/21 04:13 [place] # (Auto) 1.1 x10^3/uL (0.3-0.8) H 04/14/21 04:13 Eos # (Auto) 0.0 x10^3/uL (0.0-0.2) 04/14/21 04:13 Baso # (Auto) 0.1 X10^3/uL (0.0-0.1) 04/14/21 04:13 Absolute Nucleated RBC 0.1 /100WBC 04/14/21 04:13 Total Counted 100 04/13/21 04:35 Neutrophils % (Manual) 92 % (39-76) H 04/13/21 04:35 Band Neutrophils % 3 % (0-10) 04/13/21 04:35 Lymphocytes % (Manual) Not Reportable 04/13/21 04:35 Monocytes % (Manual) 4 % (4-9) 04/13/21 04:35 Metamyelocytes % 1 04/13/21 04:35 Plt Morphology Comment Normal (NORMAL) 04/13/21 04:35 RBC Morphology Normal (NORMAL) 04/13/21 04:35 D-Dimer 1.17 ug/ml (0.0-0.57) H* 04/06/21 08:28 Sample Site Rb 04/13/21 19:50 ABG pH 7.490 (7.35-7.45) H 04/13/21 19:50 ABG pCO2 34.0 mmHg (35.0-45.0) L 04/13/21 19:50 ABG pO2 62.0 mmHg (80.0-100.0) L 04/13/21 19:50 ABG HCO3 25.9 mmol/L (22-26) 04/13/21 19:50 ABG O2 Saturation 93.0 % (90-100) 04/13/21 19:50 ABG Base Excess 2.8 mmol/L (-2.0-2.0) H 04/13/21 19:50 Ed Test Na 04/13/21 19:50 A-a Gradient 430.0 mmHg 04/13/21 19:50 FiO2 75.0 04/13/21 19:50 Blood Gas Comments Tio well gmb 04/13/21 19:50 Sodium 146 mmol/L (136-145) H 04/14/21 04:13 Corrected Sodium 147 mmol/L (136-145) H 04/14/21 04:13 Potassium 4.3 mmol/L (3.5-5.1) 04/14/21 04:13 Chloride 114 mmol/L (98-107) H 04/14/21 04:13 Carbon Dioxide 24.0 mmol/L (21-32) 04/14/21 04:13 BUN 11 mg/dL (7-18) 04/14/21 04:13 Creatinine 0.58 mg/dL (0.55-1.02) 04/14/21 04:13 Est GFR (MDRD) Af Amer > 60 (>60) 04/14/21 04:13 Est GFR (MDRD) Non-Af > 60 (>60) 04/14/21 04:13 Glucose 138 mg/dL (65-99) H 04/14/21 04:13 Lactic Acid 1.2 mmol/L (0.4-2.0) 04/05/21 13:22 Calcium 7.1 mg/dL (8.5-10.1) L 04/14/21 04:13 Corrected Calcium 8.4 mg/dL (8.5-10.1) L 04/14/21 04:13 Magnesium 2.6 mg/dL (1.7-2.9) 04/12/21 08:16 Total Bilirubin 1.30 mg/dL (0.2-1.0) H 04/14/21 04:13 AST 84 Units/L (15-37) H 04/14/21 04:13 ALT 110 Units/L (12-78) H 04/14/21 04:13 Alkaline Phosphatase 215 Units/L (46-116) H 04/14/21 04:13 Creatine Kinase 169 Units/L (26-192) 04/05/21 13:22 CK-MB (CK-2) 1.1 ng/mL (0-4.0) 04/05/21 13:22 CK/CKMB % Calc 0.7 % (<4) 04/05/21 13:22 Troponin I 0.02 ng/mL (0-1.5) 04/06/21 06:16 C-Reactive Protein 8.00 mg/L (0-3.0) H 04/13/21 04:35 Total Protein 5.0 g/dL (6.4-8.2) L 04/14/21 04:13 Albumin 2.4 g/dL (3.4-5.0) L 04/14/21 04:13 Globulin 2.6 g/dL (2.5-4.5) 04/14/21 04:13 Albumin/Globulin Ratio 0.9 Ratio (1.1-2.1) L 04/14/21 04:13 Lipase 368 Units/L (73-393) 04/05/21 13:22 Specimen Type Catherized urine 04/13/21 20:30 Urine Color Yellow (YELLOW) 04/13/21 20:30 Urine Appearance Clear (CLEAR) 04/13/21 20:30 Urine pH 7.0 (5.0 - 8.0) 04/13/21 20:30 Ur Specific [place] 1.010 (1.000-1.030) 04/13/21 20:30 Urine Protein 2+ (NEGATIVE) 04/13/21 20:30 Urine Glucose (UA) Negative (NEGATIVE) 04/13/21 20:30 Urine Ketones Negative (NEGATIVE) 04/13/21 20:30 Urine Occult Blood 1+ (NEGATIVE) 04/13/21 20:30 Urine Nitrite Negative (NEGATIVE) 04/13/21 20:30 Urine Bilirubin Negative (NEGATIVE) 04/13/21 20:30 Urine Urobilinogen Normal (NORMAL) 04/13/21 20:30 Ur Leukocyte Esterase Negative (NEGATIVE) 04/13/21 20:30 Urine RBC 0-2 /HPF (0-3) 04/13/21 20:30 Urine WBC 0-2 /HPF (0-5) 04/13/21 20:30 Ur Squamous Epith Cells Rare /HPF (NEGATIVE) 04/13/21 20:30 Amorphous Sediment Trace /HPF (NEGATIVE) 04/05/21 13:24 Urine Bacteria Trace /HPF (NEGATIVE) 04/13/21 20:30 Ur Culture Indicated? No/not indicated 04/13/21 20:30 Stool Description 5g green mucoid 04/07/21 10:15 Stl Occult Blood (IFOB) Positive (NEGATIVE) A 04/07/21 10:15 Stl C. diff Tox B Gene Negative (NEGATIVE) 04/07/21 10:15 Stl C. diff [id number] Presumptive negative (NEGATIVE) 04/07/21 10:15 Random Vancomycin 11.9 ug/mL 04/11/21 21:00 SARS-CoV-2 (PCR) Positive (NEGATIVE) A 04/05/21 13:45 Influenza Type A (PCR) Negative (NEGATIVE) 04/05/21 13:45 Influenza Type B (PCR) Negative (NEGATIVE) 04/05/21 13:45 RSV (PCR) Negative (NEGATIVE) 04/05/21 13:45 SARS CoV-2 RNA Rapid OLYA Positive (NEGATIVE) A 04/05/21 13:24 Plan (1) Pneumonia due to COVID-19 virus: Status: Acute (2) Acute respiratory failure with hypoxia: Status: Acute (3) HTN (hypertension): Status: Acute Qualifiers: Hypertension type: primary hypertension Qualified Code(s): I10 - Essential (primary) hypertension (4) Hypernatremia: Status: Acute (5) Diarrhea: Status: Acute Qualifiers: Diarrhea type: unspecified type Qualified Code(s): R19.7 - Diarrhea, unspecified (6) Hypokalemia: Status: Acute (7) AMS (altered mental status): Status: Acute (8) Agitation: Status: Acute
[2021-04-14] MEDS ORDERED: ZESTRIL TAB 20 MG ONE (10:36)
[2021-04-14] MEDS: APRESOLINE INJ 20 MG VIAL IVP PRN (10:54)
--- NOTE | 2021-04-14 10:58 | DR.UPDATE ---
H&P Update History and Physical Update: History and Physical reviewed and patient examined. Changes noted: NO Yes with the following:will place picc per Dr Lea araiza H&P Reviewed: Yes Patient was examined?: Yes Procedures (ALL) - Central Line Placement PCM.CLCO: written consent Time out performed: Yes Patient placed pm monitor/pulse ox: Yes MD prep: mask, gown, gloves, other Centrial line prep: chlorhexidine scrub, sterile drapes applied Local anesthsia used: lidocane 1% Ultrasound used for placement: Yes (right basilic id'd via u/s) Central line lumen ininserted: double (awwowpicc x3 attempts, cannulation visualized) Post procedure: good blood return, all ports aspirated, flushed,capped, sterile dressing applied Post procedure xray: tip oc catheter in good position (distal SVC per r adiologist report), no pneumothorax seen Patient tolerated procedure: Yes Complications: none
[2021-04-14] MEDS: BUSPAR PO SCH ×2 (11:02→20:33)
[2021-04-14] MEDS: LOVENOX INJ 30 MG SYR SC SCH ×2 (11:07→20:35)
[2021-04-14] MEDS: MORPHINE SULFATE INJ 2 MG INJ IVP PRN ×3 (12:15→20:41)
[2021-04-14 17:00] LABS: ABG BASE EXCESS 4.8 mmol/L (-2.0-2.0); ABG HCO3 28.1 mmol/L (22-26)
[2021-04-14] MEDS: MELATONIN PO SCH (20:36)
[2021-04-15] MEDS: D5W 1000 ML IV 1,000 ML with POTASSIUM CHLORIDE INJ 40 MEQ VIAL 40 MEQ IV SCH ×8 (01:22→17:01)
[2021-04-15] MEDS: ASCORBIC ACID INJ MULTI-DOSE VIAL 1,500 MG in NS 100 ML IV 100 ML IV SCH ×4 (03:03→20:13)
[2021-04-15] MEDS: ZOSYN VIAL 2.25 GRAMS 2.25 G in NS 100 ML IV + SPIKE MINIBAG* 100 ML IV SCH ×3 (05:10→22:03)
[2021-04-15 05:21] LABS: BASOPHILS % (AUTO) 0.3 % (0.2-1.0); EOSINOPHILS % (AUTO) 0.1 % (0.9-2.9); HEMATOCRIT 37.7 % (36.0-47.0); HEMOGLOBIN 12.6 g/dL (12.0-16.0); LYMPHOCYTES # (AUTO) 0.4 X10^3/uL (1.3-2.9); MEAN CORPUSCULAR HEMOGLOBIN 28.8 pg (27.0-34.0); MEAN CORPUSCULAR HGB CONC 33.4 g/dL (33.0-35.0); MEAN CORPUSCULAR VOLUME 86.2 fL (80.0-100.0); MEAN PLATELET VOLUME 9.3 fL (7.4-11.0); MONOCYTES # (AUTO) 0.6 x10^3/uL (0.3-0.8); MONOCYTES % (AUTO) 5.6 % (0.0-13.0); NEUTROPHILS # (AUTO) 8.9 x10^3/uL (2.2-4.8); PLATELET COUNT 245 X10^3/uL (150.0-450.0); RED BLOOD COUNT 4.38 X10^6/uL (3.5-5.4); RED CELL DISTRIBUTION WIDTH 14.6 % (11.6-16.5); WHITE BLOOD COUNT 9.9 X10^3/uL (3.6-10.0)
[2021-04-15 06:32] LABS: ALANINE AMINOTRANSFERASE 128 Units/L (12-78); ALBUMIN 2.6 g/dL (3.4-5.0); ALKALINE PHOSPHATASE 200 Units/L (46-116); ASPARTATE AMINO TRANSFERASE 71 Units/L (15-37); BLOOD UREA NITROGEN 9 mg/dL (7-18); CALCIUM 7.6 mg/dL (8.5-10.1); CARBON DIOXIDE 28.4 mmol/L (21-32); CHLORIDE 106 mmol/L (98-107); COR CA(FOR HYPOALB) 8.7 mg/dL (8.5-10.1); COR NA(FOR HYPERGLY) 141 mmol/L (136-145); CREATININE 0.67 mg/dL (0.55-1.02); SODIUM 140 mmol/L (136-145); TOTAL PROTEIN 5.4 g/dL (6.4-8.2); eGFR NON BLACK RACES > 60 (>60)
[2021-04-15] MEDS: PULMICORT NEB TX 0.5 MG NEB SCH ×2 (08:47→21:51)
[2021-04-15] MEDS: BROVANA IN SCH ×2 (08:47→21:51)
[2021-04-15] MEDS ORDERED: ZESTRIL TAB 20 MG PO SCH (09:00)
[2021-04-15] MEDS ORDERED: ZESTRIL TAB 20 MG ONE (09:08)
[2021-04-15] MEDS: ZINC SULFATE PO SCH ×2 (09:30→20:18)
[2021-04-15] MEDS: VITAMIN A PO SCH (09:30)
[2021-04-15] MEDS: ZETIA TAB 10 MG PO SCH (09:30)
[2021-04-15] MEDS: PAXIL PO SCH (09:30)
[2021-04-15] MEDS: PROTONIX INJ 40 MG VIAL IVP SCH (09:30)
[2021-04-15] MEDS: SOLU-Medrol 40 MG VIAL IVP SCH ×2 (09:30→20:17)
[2021-04-15] MEDS: ASPIRIN EC 81 MG PO SCH (09:30)
[2021-04-15] MEDS: VITAMIN D3 125 mcg (5,000 UNITS) PO SCH (09:30)
[2021-04-15] MEDS: BUSPAR PO SCH ×2 (09:30→20:15)
[2021-04-15] MEDS: PEPCID 20 MG IV PREMIX* 20 MG/50 ML BAG IV SCH (09:30)
--- NOTE | 2021-04-15 10:17 | PCM.PROG ---
Progress Note Progress Note for Day of Date of Exam: 04/15/21 Subjective Subjective: Patient seen at bedside, no acute events overnight. Patient is currently resting comfortably on HHFNC at FiO2 60%. She states she feels better. She is not agitated. Patient did have PICC line placed yesterday. Labs: WBC 9.9 Hgb 12.6 K: 4.2 BUN/Cr: 9/0.67 Na:141 Cl:106 AST/ALT: 71/128 CTA: negative for PE, b/l patchy opacities, also showed a thyroid mass/cyst, non-emergent Thyroid U/S recommended UA: no signs of infection CXR(04/14/21): similar bilateral infiltrates, no change Echo: EF 57% normal wall motion, mild pulmonary HTN ABG(04/14/21): 7.5/36/87/28 sats 97% Plan: Wean HHFNC as tolerated to keep sats > 90%. Completed Remdesivir. Patient also received 2 doses of Actemra. Completed course of Vancomycin and Azithromycin. Continue Zosyn. Continue Solumedrol 40 mg q12. Continue vitamin support. Continue nebs, pulmicort and IS. Decrease D5 to 50cc/hr, encourage PO intake. Continue buspar for anxiety and melatonin for insomnia. Continue morphine prn for pain control. Increase lisinopril to 40 mg daily. DC restrains as tolerated. Continue home medications as tolerated. Monitor resp status closely. Continue hydralazine prn for SBP >160. Monitor AM labs and imaging. Time spent for clinical assessment, reviewing labs/imaging, physical exam, decision making and documentation greater than 75 mins. Past Medical Family Social History Past Med/Fam/Surg Hx: No changes since H&P Allergies: Allergies cortisone Allergy (Verified 04/05/21 13:11) meperidine [From Demerol] Allergy (Verified 04/05/21 13:11) phenobarbital Allergy (Verified 04/05/21 13:11) Review of Systems ROS: No change since H&P Vital Signs and I&O's Vital Signs: Temperature 98.5 F Pulse Rate [Right] 88 Pulse Rate 85 Respiratory Rate 24 Blood Pressure [Right Arm] 177/82 Blood Pressure 185/91 O2 Sat by Pulse Oximetry 90 Intake and Output: Intake & Output 08/10/04/13/21 04/14/21 04/15/21 23:59 23:59 23:59 23:59 Intake Total 3449 / 3449 2087 / 8 3378 / 3378 967 / 967 Output Total 650 / 650 5150 / 5150 2074 / 2074 Balance 3449 / 3449 1438 / 1438 -1772 / -1772 -1108 / -1108 Physical Exam Oriented: Normal Eyes: Normal Ear: Normal Nose: Normal Throat: Normal Respiratory: Generalized and Diminished Cardiovascular: Normal Auscultation: Bowel Sounds: Normal Tenderness: Normal Skin: Decreased Turgur Musculoskeletal: Normal Psychiatric: Normal Mood Description: Calm Affect: Normal Speech Pattern: Clear and Appropriate Laboratory and Diagnostics Result Diagrams: 04/15/21 04:30 04/15/21 04:30 Labs: 04/05/21 13:15 Blood Blood Culture - Final 04/05/21 13:22 Blood Blood Culture - Final 04/07/21 10:15 Stool Stool Culture - Final 04/07/21 10:15 Stool - Final Laboratory WBC 9.9 X10^3/uL (3.6-10.0) 04/15/21 04:30 RBC 4.38 X10^6/uL (3.5-5.4) 04/15/21 04:30 Hgb 12.6 g/dL (12.0-16.0) 04/15/21 04:30 Hct 37.7 % (36.0-47.0) 04/15/21 04:30 MCV 86.2 fL (80.0-100.0) 04/15/21 04:30 MCH 28.8 pg (27.0-34.0) 04/15/21 04:30 MCHC 33.4 g/dL (33.0-35.0) 04/15/21 04:30 RDW 14.6 % (11.6-16.5) 04/15/21 04:30 Plt Count 245 X10^3/uL (150.0-450.0) 04/15/21 04:30 Plt Count Comment Adequate (ADEQUATE) 04/13/21 04:35 MPV 9.3 fL (7.4-11.0) 04/15/21 04:30 Neut % (Auto) 90.0 % (42.0-75.0) H 04/15/21 04:30 Lymph % (Auto) 4.0 % (21.0-51.0) L 04/15/21 04:30 Lewis % (Auto) 5.6 % (0.0-13.0) 04/15/21 04:30 Eos % (Auto) 0.1 % (0.9-2.9) L 04/15/21 04:30 Baso % (Auto) 0.3 % (0.2-1.0) 04/15/21 04:30 Neut # (Auto) 8.9 x10^3/uL (2.2-4.8) H 04/15/21 04:30 Lymph # (Auto) 0.4 X10^3/uL (1.3-2.9) L 04/15/21 04:30 Lewis # (Auto) 0.6 x10^3/uL (0.3-0.8) 04/15/21 04:30 Eos # (Auto) 0.0 x10^3/uL (0.0-0.2) 04/15/21 04:30 Baso # (Auto) 0.0 X10^3/uL (0.0-0.1) 04/15/21 04:30 Absolute Nucleated RBC 0.0 /100WBC 04/15/21 04:30 Total Counted 100 04/13/21 04:35 Neutrophils % (Manual) 92 % (39-76) H 04/13/21 04:35 Band Neutrophils % 3 % (0-10) 04/13/21 04:35 Lymphocytes % (Manual) Not Reportable 04/13/21 04:35 Monocytes % (Manual) 4 % (4-9) 04/13/21 04:35 Metamyelocytes % 1 04/13/21 04:35 Plt Morphology Comment Normal (NORMAL) 04/13/21 04:35 RBC Morphology Normal (NORMAL) 04/13/21 04:35 D-Dimer 1.17 ug/ml (0.0-0.57) H* 04/06/21 08:28 Sample Site Left brachial 04/14/21 16:53 ABG pH 7.500 (7.35-7.45) H 04/14/21 16:53 ABG pCO2 36.0 mmHg (35.0-45.0) 04/14/21 16:53 ABG pO2 87.0 mmHg (80.0-100.0) 04/14/21 16:53 ABG HCO3 28.1 mmol/L (22-26) H 04/14/21 16:53 ABG O2 Saturation 97.0 % (90-100) 04/14/21 16:53 ABG Base Excess 4.8 mmol/L (-2.0-2.0) H 04/14/21 16:53 Ed Test Na 04/14/21 16:53 A-a Gradient 367.0 mmHg 04/14/21 16:53 FiO2 70.0 04/14/21 16:53 Blood Gas Comments Tio well aw 04/14/21 16:53 Sodium 140 mmol/L (136-145) 04/15/21 04:30 Corrected Sodium 141 mmol/L (136-145) 04/15/21 04:30 Potassium 4.2 mmol/L (3.5-5.1) 04/15/21 04:30 Chloride 106 mmol/L (98-107) 04/15/21 04:30 Carbon Dioxide 28.4 mmol/L (21-32) 04/15/21 04:30 BUN 9 mg/dL (7-18) 04/15/21 04:30 Creatinine 0.67 mg/dL (0.55-1.02) 04/15/21 04:30 Est GFR (MDRD) Af Amer > 60 (>60) 04/15/21 04:30 Est GFR (MDRD) Non-Af > 60 (>60) 04/15/21 04:30 Glucose 142 mg/dL (65-99) H 04/15/21 04:30 Lactic Acid 1.2 mmol/L (0.4-2.0) 04/05/21 13:22 Calcium 7.6 mg/dL (8.5-10.1) L 04/15/21 04:30 Corrected Calcium 8.7 mg/dL (8.5-10.1) 04/15/21 04:30 Magnesium 2.6 mg/dL (1.7-2.9) 04/12/21 08:16 Total Bilirubin 1.50 mg/dL (0.2-1.0) H 04/15/21 04:30 AST 71 Units/L (15-37) H 04/15/21 04:30 ALT 128 Units/L (12-78) H 04/15/21 04:30 Alkaline Phosphatase 200 Units/L (46-116) H 04/15/21 04:30 Creatine Kinase 169 Units/L (26-192) 04/05/21 13:22 CK-MB (CK-2) 1.1 ng/mL (0-4.0) 04/05/21 13:22 CK/CKMB % Calc 0.7 % (<4) 04/05/21 13:22 Troponin I 0.02 ng/mL (0-1.5) 04/06/21 06:16 C-Reactive Protein 8.00 mg/L (0-3.0) H 04/13/21 04:35 Total Protein 5.4 g/dL (6.4-8.2) L 04/15/21 04:30 Albumin 2.6 g/dL (3.4-5.0) L 04/15/21 04:30 Globulin 2.8 g/dL (2.5-4.5) 04/15/21 04:30 Albumin/Globulin Ratio 0.9 Ratio (1.1-2.1) L 04/15/21 04:30 Lipase 368 Units/L (73-393) 04/05/21 13:22 Specimen Type Catherized urine 04/13/21 20:30 Urine Color Yellow (YELLOW) 04/13/21 20:30 Urine Appearance Clear (CLEAR) 04/13/21 20:30 Urine pH 7.0 (5.0 - 8.0) 04/13/21 20:30 Ur Specific [place] 1.010 (1.000-1.030) 04/13/21 20:30 Urine Protein 2+ (NEGATIVE) 04/13/21 20:30 Urine Glucose (UA) Negative (NEGATIVE) 04/13/21 20:30 Urine Ketones Negative (NEGATIVE) 04/13/21 20:30 Urine Occult Blood 1+ (NEGATIVE) 04/13/21 20:30 Urine Nitrite Negative (NEGATIVE) 04/13/21 20:30 Urine Bilirubin Negative (NEGATIVE) 04/13/21 20:30 Urine Urobilinogen Normal (NORMAL) 04/13/21 20:30 Ur Leukocyte Esterase Negative (NEGATIVE) 04/13/21 20:30 Urine RBC 0-2 /HPF (0-3) 04/13/21 20:30 Urine WBC 0-2 /HPF (0-5) 04/13/21 20:30 Ur Squamous Epith Cells Rare /HPF (NEGATIVE) 04/13/21 20:30 Amorphous Sediment Trace /HPF (NEGATIVE) 04/05/21 13:24 Urine Bacteria Trace /HPF (NEGATIVE) 04/13/21 20:30 Ur Culture Indicated? No/not indicated 04/13/21 20:30 Stool Description 5g green mucoid 04/07/21 10:15 Stl Occult Blood (IFOB) Positive (NEGATIVE) A 04/07/21 10:15 Stl C. diff Tox B Gene Negative (NEGATIVE) 04/07/21 10:15 Stl C. diff [id number] Presumptive negative (NEGATIVE) 04/07/21 10:15 Random Vancomycin 11.9 ug/mL 04/11/21 21:00 SARS-CoV-2 (PCR) Positive (NEGATIVE) A 04/05/21 13:45 Influenza Type A (PCR) Negative (NEGATIVE) 04/05/21 13:45 Influenza Type B (PCR) Negative (NEGATIVE) 04/05/21 13:45 RSV (PCR) Negative (NEGATIVE) 04/05/21 13:45 SARS CoV-2 RNA Rapid OLYA Positive (NEGATIVE) A 04/05/21 13:24 Plan (1) Pneumonia due to COVID-19 virus: Status: Acute (2) Acute respiratory failure with hypoxia: Status: Acute (3) HTN (hypertension): Status: Acute Qualifiers: Hypertension type: primary hypertension Qualified Code(s): I10 - Essential (primary) hypertension (4) Hypernatremia: Status: Acute (5) Diarrhea: Status: Acute Qualifiers: Diarrhea type: unspecified type Qualified Code(s): R19.7 - Diarrhea, unspecified (6) Hypokalemia: Status: Acute (7) AMS (altered mental status): Status: Acute Qualifiers: Altered mental status type: disorientation Qualified Code(s): R41.0 - Disorientation, unspecified (8) Agitation: Status: Acute
[2021-04-15] MEDS: VENTOLIN or PROAIR HFA IN SCH ×3 (11:35→21:51)
[2021-04-15] MEDS: K-DUR TAB 20 MEQ PO SCH ×2 (12:32→20:15)
[2021-04-15] MEDS: LOVENOX INJ 30 MG SYR SC SCH ×2 (12:32→20:15)
[2021-04-15] MEDS ORDERED: D5W 1000 ML IV 1,000 ML IV ONE (13:10)
[2021-04-15] MEDS: MELATONIN PO SCH (20:16)
[2021-04-15] MEDS: NORVASC TAB 5 MG PO SCH (20:16)
[2021-04-15] MEDS: BUTT CREAM (COMPOUND) TOP PRN (20:18)
[2021-04-16] MEDS: ASCORBIC ACID INJ MULTI-DOSE VIAL 1,500 MG in NS 100 ML IV 100 ML IV SCH ×4 (02:34→20:25)
[2021-04-16] MEDS: D5W 1000 ML IV 1,000 ML with POTASSIUM CHLORIDE INJ 40 MEQ VIAL 40 MEQ IV SCH ×6 (02:34→17:15)
[2021-04-16] MEDS: ZOSYN VIAL 2.25 GRAMS 2.25 G in NS 100 ML IV + SPIKE MINIBAG* 100 ML IV SCH ×3 (05:07→22:00)
[2021-04-16 05:39] LABS: BASOPHILS % (AUTO) 0.4 % (0.2-1.0); EOSINOPHILS % (AUTO) 0.2 % (0.9-2.9); HEMATOCRIT 37.9 % (36.0-47.0); HEMOGLOBIN 12.5 g/dL (12.0-16.0); LYMPHOCYTES # (AUTO) 0.5 X10^3/uL (1.3-2.9); LYMPHOCYTES % (AUTO) 4.8 % (21.0-51.0); MEAN CORPUSCULAR HEMOGLOBIN 28.7 pg (27.0-34.0); MEAN CORPUSCULAR HGB CONC 33.1 g/dL (33.0-35.0); MEAN CORPUSCULAR VOLUME 86.8 fL (80.0-100.0); MEAN PLATELET VOLUME 9.7 fL (7.4-11.0); MONOCYTES # (AUTO) 0.6 x10^3/uL (0.3-0.8); MONOCYTES % (AUTO) 5.6 % (0.0-13.0); NEUTROPHILS # (AUTO) 9.2 x10^3/uL (2.2-4.8); PLATELET COUNT 223 X10^3/uL (150.0-450.0); RED BLOOD COUNT 4.37 X10^6/uL (3.5-5.4); RED CELL DISTRIBUTION WIDTH 15.1 % (11.6-16.5); WHITE BLOOD COUNT 10.3 X10^3/uL (3.6-10.0)
[2021-04-16 06:00] LABS: ALANINE AMINOTRANSFERASE 141 Units/L (12-78); ALBUMIN 2.6 g/dL (3.4-5.0); ALKALINE PHOSPHATASE 182 Units/L (46-116); ASPARTATE AMINO TRANSFERASE 69 Units/L (15-37); BLOOD UREA NITROGEN 11 mg/dL (7-18); CALCIUM 7.6 mg/dL (8.5-10.1); CARBON DIOXIDE 25.8 mmol/L (21-32); CHLORIDE 106 mmol/L (98-107); COR CA(FOR HYPOALB) 8.7 mg/dL (8.5-10.1); COR NA(FOR HYPERGLY) 140 mmol/L (136-145); CREATININE 0.59 mg/dL (0.55-1.02); SODIUM 139 mmol/L (136-145); TOTAL PROTEIN 5.4 g/dL (6.4-8.2); eGFR NON BLACK RACES > 60 (>60)
[2021-04-16] MEDS: ASPIRIN EC 81 MG PO SCH (08:48)
[2021-04-16] MEDS: BUSPAR PO SCH ×2 (08:49→20:26)
[2021-04-16] MEDS: LOVENOX INJ 30 MG SYR SC SCH (08:49)
[2021-04-16] MEDS: PAXIL PO SCH (08:50)
[2021-04-16] MEDS: SOLU-Medrol 40 MG VIAL IVP SCH ×3 (08:51→22:00)
[2021-04-16] MEDS: PEPCID 20 MG IV PREMIX* 20 MG/50 ML BAG IV SCH (08:51)
[2021-04-16] MEDS: PROTONIX INJ 40 MG VIAL IVP SCH (08:51)
[2021-04-16] MEDS: VITAMIN A PO SCH (08:52)
[2021-04-16] MEDS: VITAMIN D3 125 mcg (5,000 UNITS) PO SCH (08:52)
[2021-04-16] MEDS: ZINC SULFATE PO SCH ×2 (08:53→20:30)
[2021-04-16] MEDS: ZETIA TAB 10 MG PO SCH (08:53)
[2021-04-16] MEDS: PULMICORT NEB TX 0.5 MG NEB SCH ×2 (09:00→21:37)
[2021-04-16] MEDS: BROVANA IN SCH ×2 (09:00→21:37)
[2021-04-16] MEDS: ZESTRIL TAB 40 MG PO SCH (09:14)
[2021-04-16] MEDS: VENTOLIN or PROAIR HFA IN SCH ×2 (10:43→21:37)
[2021-04-16] MEDS: K-DUR TAB 20 MEQ PO SCH ×2 (13:52→20:28)
[2021-04-16] MEDS ORDERED: NS 250 ML IV 250 ML IV ONE (15:21)
[2021-04-16] MEDS: NORVASC TAB 5 MG PO SCH (20:29)
[2021-04-16] MEDS: MELATONIN PO SCH (20:29)
[2021-04-16] MEDS ORDERED: LOVENOX INJ 60 MG SYR SC SCH (21:00)
[2021-04-17] MEDS: ASCORBIC ACID INJ MULTI-DOSE VIAL 1,500 MG in NS 100 ML IV 100 ML IV SCH ×4 (02:47→21:26)
[2021-04-17] MEDS: D5W 1000 ML IV 1,000 ML with POTASSIUM CHLORIDE INJ 40 MEQ VIAL 40 MEQ IV SCH ×6 (02:47→16:55)
[2021-04-17] MEDS: SOLU-Medrol 40 MG VIAL IVP SCH ×3 (05:05→21:29)
[2021-04-17] MEDS: ZOSYN VIAL 2.25 GRAMS 2.25 G in NS 100 ML IV + SPIKE MINIBAG* 100 ML IV SCH ×3 (05:06→21:28)
[2021-04-17 05:18] LABS: BASOPHILS % (AUTO) 0.2 % (0.2-1.0); HEMATOCRIT 36.7 % (36.0-47.0); HEMOGLOBIN 12.2 g/dL (12.0-16.0); LYMPHOCYTES # (AUTO) 0.6 X10^3/uL (1.3-2.9); LYMPHOCYTES % (AUTO) 4.8 % (21.0-51.0); MEAN CORPUSCULAR HEMOGLOBIN 28.5 pg (27.0-34.0); MEAN CORPUSCULAR HGB CONC 33.1 g/dL (33.0-35.0); MEAN PLATELET VOLUME 9.1 fL (7.4-11.0); MONOCYTES # (AUTO) 0.5 x10^3/uL (0.3-0.8); MONOCYTES % (AUTO) 4.3 % (0.0-13.0); NEUTROPHILS # (AUTO) 11.5 x10^3/uL (2.2-4.8); NEUTROPHILS % (AUTO) 90.7 % (42.0-75.0); PLATELET COUNT 190 X10^3/uL (150.0-450.0); RED BLOOD COUNT 4.27 X10^6/uL (3.5-5.4); WHITE BLOOD COUNT 12.7 X10^3/uL (3.6-10.0)
[2021-04-17 05:34] LABS: ALANINE AMINOTRANSFERASE 140 Units/L (12-78); ALBUMIN 2.5 g/dL (3.4-5.0); ALKALINE PHOSPHATASE 169 Units/L (46-116); ASPARTATE AMINO TRANSFERASE 52 Units/L (15-37); BLOOD UREA NITROGEN 14 mg/dL (7-18); CALCIUM 7.7 mg/dL (8.5-10.1); CARBON DIOXIDE 26.2 mmol/L (21-32); CHLORIDE 106 mmol/L (98-107); COR CA(FOR HYPOALB) 8.9 mg/dL (8.5-10.1); COR NA(FOR HYPERGLY) 141 mmol/L (136-145); CREATININE 0.71 mg/dL (0.55-1.02); SODIUM 139 mmol/L (136-145); TOTAL PROTEIN 5.2 g/dL (6.4-8.2); eGFR NON BLACK RACES > 60 (>60)
[2021-04-17 05:55] LABS: PLATELET MORPHOLOGY COMMENT NORMAL (NORMAL)
[2021-04-17] MEDS: BROVANA IN SCH ×2 (09:00→20:35)
[2021-04-17] MEDS: PULMICORT NEB TX 0.5 MG NEB SCH ×2 (09:00→20:35)
[2021-04-17] MEDS: PROTONIX INJ 40 MG VIAL IVP SCH (09:15)
[2021-04-17] MEDS: VITAMIN A PO SCH (09:15)
[2021-04-17] MEDS: ZESTRIL TAB 40 MG PO SCH (09:15)
[2021-04-17] MEDS: PEPCID 20 MG IV PREMIX* 20 MG/50 ML BAG IV SCH (09:15)
[2021-04-17] MEDS: ASPIRIN EC 81 MG PO SCH (09:15)
[2021-04-17] MEDS: K-DUR TAB 20 MEQ PO SCH ×2 (09:15→21:29)
[2021-04-17] MEDS: PAXIL PO SCH (09:15)
[2021-04-17] MEDS: ACTOS PO SCH (09:15)
[2021-04-17] MEDS: VITAMIN D3 125 mcg (5,000 UNITS) PO SCH (09:15)
[2021-04-17] MEDS: ZINC SULFATE PO SCH ×2 (09:15→21:27)
[2021-04-17] MEDS: BUSPAR PO SCH ×2 (09:15→21:28)
[2021-04-17] MEDS: ZETIA TAB 10 MG PO SCH (12:24)
[2021-04-17] MEDS: VENTOLIN or PROAIR HFA IN SCH ×3 (14:22→20:35)
[2021-04-17] MEDS: GLUCOPHAGE XR 24-HR PO SCH ×2 (15:05→21:27)
[2021-04-17] MEDS: MELATONIN PO SCH (21:26)
[2021-04-17] MEDS: NORVASC TAB 5 MG PO SCH (21:28)
[2021-04-17] MEDS: LOVENOX INJ 30 MG SYR SC SCH (21:29)
[2021-04-18] MEDS: ASCORBIC ACID INJ MULTI-DOSE VIAL 1,500 MG in NS 100 ML IV 100 ML IV SCH ×4 (04:00→22:08)
[2021-04-18 05:31] LABS: BASOPHILS # (AUTO) 0.1 X10^3/uL (0.0-0.1); BASOPHILS % (AUTO) 0.5 % (0.2-1.0); HEMATOCRIT 36.6 % (36.0-47.0); LYMPHOCYTES # (AUTO) 0.8 X10^3/uL (1.3-2.9); LYMPHOCYTES % (AUTO) 4.2 % (21.0-51.0); MEAN CORPUSCULAR HEMOGLOBIN 28.5 pg (27.0-34.0); MEAN CORPUSCULAR HGB CONC 32.7 g/dL (33.0-35.0); MEAN CORPUSCULAR VOLUME 86.9 fL (80.0-100.0); MEAN PLATELET VOLUME 10.1 fL (7.4-11.0); MONOCYTES # (AUTO) 0.9 x10^3/uL (0.3-0.8); MONOCYTES % (AUTO) 4.8 % (0.0-13.0); NEUTROPHILS # (AUTO) 17.3 x10^3/uL (2.2-4.8); NEUTROPHILS % (AUTO) 90.5 % (42.0-75.0); PLATELET COUNT 188 X10^3/uL (150.0-450.0); RED BLOOD COUNT 4.21 X10^6/uL (3.5-5.4); RED CELL DISTRIBUTION WIDTH 14.7 % (11.6-16.5); WHITE BLOOD COUNT 19.1 X10^3/uL (3.6-10.0)
[2021-04-18] MEDS: D5W 1000 ML IV 1,000 ML with POTASSIUM CHLORIDE INJ 40 MEQ VIAL 40 MEQ IV SCH ×6 (05:33→17:31)
[2021-04-18] MEDS: SOLU-Medrol 40 MG VIAL IVP SCH ×3 (05:33→22:11)
[2021-04-18] MEDS: ZOSYN VIAL 2.25 GRAMS 2.25 G in NS 100 ML IV + SPIKE MINIBAG* 100 ML IV SCH ×3 (05:34→22:13)
[2021-04-18 05:39] LABS: BLOOD UREA NITROGEN 14 mg/dL (7-18); CALCIUM 7.6 mg/dL (8.5-10.1); CARBON DIOXIDE 22.4 mmol/L (21-32); CHLORIDE 108 mmol/L (98-107); COR NA(FOR HYPERGLY) 144 mmol/L (136-145); CREATININE 0.76 mg/dL (0.55-1.02); SODIUM 143 mmol/L (136-145); eGFR NON BLACK RACES > 60 (>60)
[2021-04-18 06:18] LABS: BAND NEUTROPHILS % 2 % (0-10)
[2021-04-18 06:19] LABS: PLATELET MORPHOLOGY COMMENT NORMAL (NORMAL)
[2021-04-18] MEDS: ASPIRIN EC 81 MG PO SCH (09:38)
[2021-04-18] MEDS: ACTOS PO SCH (09:38)
[2021-04-18] MEDS: K-DUR TAB 20 MEQ PO SCH ×2 (09:39→22:12)
[2021-04-18] MEDS: BUSPAR PO SCH ×2 (09:39→22:09)
[2021-04-18] MEDS: LOVENOX INJ 30 MG SYR SC SCH ×2 (09:39→22:11)
[2021-04-18] MEDS: GLUCOPHAGE XR 24-HR PO SCH ×2 (09:39→22:09)
[2021-04-18] MEDS: PEPCID 20 MG IV PREMIX* 20 MG/50 ML BAG IV SCH (09:40)
[2021-04-18] MEDS: PAXIL PO SCH (09:40)
[2021-04-18] MEDS: ZETIA TAB 10 MG PO SCH (09:41)
[2021-04-18] MEDS: VITAMIN A PO SCH (09:41)
[2021-04-18] MEDS: ZESTRIL TAB 40 MG PO SCH (09:41)
[2021-04-18] MEDS: PROTONIX INJ 40 MG VIAL IVP SCH (09:41)
[2021-04-18] MEDS: VITAMIN D3 125 mcg (5,000 UNITS) PO SCH (09:41)
[2021-04-18] MEDS: ZINC SULFATE PO SCH ×2 (09:41→22:11)
[2021-04-18] MEDS: BROVANA IN SCH ×2 (09:45→21:00)
[2021-04-18] MEDS: PULMICORT NEB TX 0.5 MG NEB SCH ×2 (09:46→21:00)
[2021-04-18] MEDS: VENTOLIN or PROAIR HFA IN SCH ×3 (17:00→18:23)
[2021-04-18] MEDS: NORVASC TAB 5 MG PO SCH (22:11)
[2021-04-18] MEDS: MELATONIN PO SCH (22:12)
[2021-04-19] MEDS: VENTOLIN or PROAIR HFA IN SCH ×3 (00:43→21:28)
[2021-04-19] MEDS: ASCORBIC ACID INJ MULTI-DOSE VIAL 1,500 MG in NS 100 ML IV 100 ML IV SCH ×4 (03:16→20:25)
[2021-04-19] MEDS: D5W 1000 ML IV 1,000 ML with POTASSIUM CHLORIDE INJ 40 MEQ VIAL 40 MEQ IV SCH ×6 (03:17→19:08)
[2021-04-19] MEDS: SOLU-Medrol 40 MG VIAL IVP SCH ×4 (05:25→21:45)
[2021-04-19] MEDS: ZOSYN VIAL 2.25 GRAMS 2.25 G in NS 100 ML IV + SPIKE MINIBAG* 100 ML IV SCH ×3 (05:25→21:45)
[2021-04-19] MEDS: BROVANA IN SCH ×2 (08:37→21:28)
[2021-04-19] MEDS: PULMICORT NEB TX 0.5 MG NEB SCH ×2 (08:37→21:28)
[2021-04-19] MEDS: PROTONIX INJ 40 MG VIAL IVP SCH (11:07)
[2021-04-19] MEDS: BUSPAR PO SCH ×2 (11:08→20:26)
[2021-04-19] MEDS: ASPIRIN EC 81 MG PO SCH (11:08)
[2021-04-19] MEDS: ACTOS PO SCH (11:08)
[2021-04-19] MEDS: K-DUR TAB 20 MEQ PO SCH ×2 (11:09→20:26)
[2021-04-19] MEDS: GLUCOPHAGE XR 24-HR PO SCH ×2 (11:09→20:26)
[2021-04-19] MEDS: PAXIL PO SCH (11:10)
[2021-04-19] MEDS: LOVENOX INJ 30 MG SYR SC SCH ×2 (11:10→20:26)
[2021-04-19] MEDS: PEPCID 20 MG IV PREMIX* 20 MG/50 ML BAG IV SCH (11:10)
[2021-04-19] MEDS: ZINC SULFATE PO SCH ×2 (11:11→20:27)
[2021-04-19] MEDS: VITAMIN A PO SCH (11:11)
[2021-04-19] MEDS: VITAMIN D3 125 mcg (5,000 UNITS) PO SCH (11:11)
[2021-04-19] MEDS: VIBRAMYCIN PO SCH ×2 (11:11→20:27)
[2021-04-19] MEDS: ZETIA TAB 10 MG PO SCH (11:12)
[2021-04-19] MEDS: ZESTRIL TAB 40 MG PO SCH (11:12)
[2021-04-19] MEDS: NORVASC TAB 5 MG PO SCH (20:26)
[2021-04-19] MEDS: MELATONIN PO SCH (20:26)
[2021-04-19 22:55] LABS: ALANINE AMINOTRANSFERASE 154 Units/L (12-78); ALBUMIN 2.8 g/dL (3.4-5.0); ALKALINE PHOSPHATASE 150 Units/L (46-116); ASPARTATE AMINO TRANSFERASE 55 Units/L (15-37); COR CA(FOR HYPOALB) 8.6 mg/dL (8.5-10.1); TOTAL PROTEIN 5.1 g/dL (6.4-8.2)
[2021-04-20] MEDS: ASCORBIC ACID INJ MULTI-DOSE VIAL 1,500 MG in NS 100 ML IV 100 ML IV SCH (03:06)
[2021-04-20] MEDS: D5W 1000 ML IV 1,000 ML with POTASSIUM CHLORIDE INJ 40 MEQ VIAL 40 MEQ IV SCH ×6 (03:07→18:58)
[2021-04-20 06:38] LABS: BASOPHILS # (AUTO) 0.1 X10^3/uL (0.0-0.1); BASOPHILS % (AUTO) 0.4 % (0.2-1.0); HEMOGLOBIN 11.8 g/dL (12.0-16.0); LYMPHOCYTES % (AUTO) 5.2 % (21.0-51.0); MEAN CORPUSCULAR HEMOGLOBIN 28.7 pg (27.0-34.0); MEAN CORPUSCULAR HGB CONC 32.8 g/dL (33.0-35.0); MEAN CORPUSCULAR VOLUME 87.6 fL (80.0-100.0); MEAN PLATELET VOLUME 10.3 fL (7.4-11.0); MONOCYTES # (AUTO) 1.2 x10^3/uL (0.3-0.8); MONOCYTES % (AUTO) 6.1 % (0.0-13.0); NEUTROPHILS # (AUTO) 16.7 x10^3/uL (2.2-4.8); NEUTROPHILS % (AUTO) 88.3 % (42.0-75.0); PLATELET COUNT 129 X10^3/uL (150.0-450.0); RED BLOOD COUNT 4.11 X10^6/uL (3.5-5.4); RED CELL DISTRIBUTION WIDTH 15.2 % (11.6-16.5); WHITE BLOOD COUNT 18.9 X10^3/uL (3.6-10.0)
[2021-04-20 07:00] LABS: ALANINE AMINOTRANSFERASE 129 Units/L (12-78); ALBUMIN 2.4 g/dL (3.4-5.0); ALKALINE PHOSPHATASE 129 Units/L (46-116); ASPARTATE AMINO TRANSFERASE 37 Units/L (15-37); BLOOD UREA NITROGEN 17 mg/dL (7-18); CALCIUM 7.7 mg/dL (8.5-10.1); CARBON DIOXIDE 25.1 mmol/L (21-32); CHLORIDE 109 mmol/L (98-107); COR NA(FOR HYPERGLY) 143 mmol/L (136-145); CREATININE 0.71 mg/dL (0.55-1.02); SODIUM 142 mmol/L (136-145); TOTAL PROTEIN 4.9 g/dL (6.4-8.2); eGFR NON BLACK RACES > 60 (>60)
[2021-04-20] MEDS ORDERED: NS 100 ML IV 0 ML ONE (07:56)
[2021-04-20] MEDS: SOLU-Medrol 40 MG VIAL IVP SCH (08:00)
[2021-04-20] MEDS: ZOSYN VIAL 2.25 GRAMS 2.25 G in NS 100 ML IV + SPIKE MINIBAG* 100 ML IV SCH (08:00)
[2021-04-20] MEDS: VITAMIN A PO SCH (08:27)
[2021-04-20] MEDS: VITAMIN D3 125 mcg (5,000 UNITS) PO SCH (08:27)
[2021-04-20] MEDS: PAXIL PO SCH (08:27)
[2021-04-20] MEDS: ZESTRIL TAB 40 MG PO SCH (08:28)
[2021-04-20] MEDS: BUSPAR PO SCH ×2 (08:28→22:25)
[2021-04-20] MEDS: ZINC SULFATE PO SCH ×2 (08:28→22:27)
[2021-04-20] MEDS: VIBRAMYCIN PO SCH ×2 (08:29→22:25)
[2021-04-20] MEDS: ACTOS PO SCH (08:29)
[2021-04-20] MEDS: K-DUR TAB 20 MEQ PO SCH ×2 (08:29→22:23)
[2021-04-20] MEDS: GLUCOPHAGE XR 24-HR PO SCH ×2 (08:30→22:25)
[2021-04-20] MEDS: ASPIRIN EC 81 MG PO SCH (08:30)
[2021-04-20] MEDS: PULMICORT NEB TX 0.5 MG NEB SCH ×2 (08:55→21:00)
[2021-04-20] MEDS: BROVANA IN SCH ×2 (08:55→21:00)
[2021-04-20] MEDS: VITAMIN C PO SCH ×2 (09:22→22:24)
[2021-04-20] MEDS: ELIQUIS PO SCH ×2 (09:22→22:23)
[2021-04-20] MEDS: PEPCID TAB 40 MG PO SCH ×2 (09:23→22:24)
[2021-04-20] MEDS: ZETIA TAB 10 MG PO SCH (09:23)
[2021-04-20] MEDS: PREDNISONE TAB 20 MG PO SCH (09:23)
--- NOTE | 2021-04-20 12:42 | RAD ---
CHEST, 1 VIEWHISTORY: covidStudy: Single view of the chest.Comparison:April 14, 2021Findings:The cardiomediastinal silhouette is normal.Mild improvement of bilateral interstitial and early airspace opacities. Osseous structures demonstrate no acute abnormality.IMPRESSION:1. Mild improvement of bilateral interstitial and early airspace opacities.Electronically signed by: JENNIFER JALLOH (Apr 20, 2021 12:40:40)
[2021-04-20] MEDS: MELATONIN PO SCH (22:24)
[2021-04-20] MEDS: NORVASC TAB 5 MG PO SCH (22:25)
[2021-04-21 06:13] LABS: BASOPHILS # (AUTO) 0.1 X10^3/uL (0.0-0.1); BASOPHILS % (AUTO) 0.5 % (0.2-1.0); EOSINOPHILS # (AUTO) 0.1 x10^3/uL (0.0-0.2); EOSINOPHILS % (AUTO) 0.6 % (0.9-2.9); HEMATOCRIT 37.3 % (36.0-47.0); HEMOGLOBIN 12.4 g/dL (12.0-16.0); LYMPHOCYTES # (AUTO) 1.4 X10^3/uL (1.3-2.9); LYMPHOCYTES % (AUTO) 10.9 % (21.0-51.0); MEAN CORPUSCULAR HEMOGLOBIN 29.1 pg (27.0-34.0); MEAN CORPUSCULAR HGB CONC 33.2 g/dL (33.0-35.0); MEAN CORPUSCULAR VOLUME 87.8 fL (80.0-100.0); MEAN PLATELET VOLUME 10.7 fL (7.4-11.0); MONOCYTES # (AUTO) 0.9 x10^3/uL (0.3-0.8); MONOCYTES % (AUTO) 7.3 % (0.0-13.0); NEUTROPHILS # (AUTO) 10.4 x10^3/uL (2.2-4.8); NEUTROPHILS % (AUTO) 80.7 % (42.0-75.0); PLATELET COUNT 119 X10^3/uL (150.0-450.0); RED BLOOD COUNT 4.25 X10^6/uL (3.5-5.4); RED CELL DISTRIBUTION WIDTH 15.6 % (11.6-16.5); WHITE BLOOD COUNT 12.9 X10^3/uL (3.6-10.0)
[2021-04-21 06:28] LABS: ALANINE AMINOTRANSFERASE 141 Units/L (12-78); ALBUMIN 2.5 g/dL (3.4-5.0); ALKALINE PHOSPHATASE 125 Units/L (46-116); ASPARTATE AMINO TRANSFERASE 39 Units/L (15-37); BLOOD UREA NITROGEN 17 mg/dL (7-18); CALCIUM 8.1 mg/dL (8.5-10.1); CARBON DIOXIDE 26.7 mmol/L (21-32); CHLORIDE 107 mmol/L (98-107); COR CA(FOR HYPOALB) 9.3 mg/dL (8.5-10.1); CREATININE 0.85 mg/dL (0.55-1.02); SODIUM 140 mmol/L (136-145); eGFR NON BLACK RACES > 60 (>60)
[2021-04-21 08:34] LABS: PLATELET MORPHOLOGY COMMENT NORMAL (NORMAL)
[2021-04-21] MEDS: ACTOS PO SCH (08:40)
[2021-04-21] MEDS: VIBRAMYCIN PO SCH ×2 (08:40→20:00)
[2021-04-21] MEDS: D5W 1000 ML IV 1,000 ML with POTASSIUM CHLORIDE INJ 40 MEQ VIAL 40 MEQ IV SCH ×2 (08:40)
[2021-04-21] MEDS: ZINC SULFATE PO SCH ×2 (08:41→20:00)
[2021-04-21] MEDS: ASPIRIN EC 81 MG PO SCH (08:41)
[2021-04-21] MEDS: PEPCID TAB 40 MG PO SCH ×2 (08:42→20:00)
[2021-04-21] MEDS: PAXIL PO SCH (08:42)
[2021-04-21] MEDS: ZETIA TAB 10 MG PO SCH (08:43)
[2021-04-21] MEDS: GLUCOPHAGE XR 24-HR PO SCH ×2 (08:43→20:00)
[2021-04-21] MEDS: VITAMIN D3 125 mcg (5,000 UNITS) PO SCH (08:43)
[2021-04-21] MEDS: PREDNISONE TAB 20 MG PO SCH (08:44)
[2021-04-21] MEDS: VITAMIN C PO SCH ×2 (08:44→20:00)
[2021-04-21] MEDS: BUSPAR PO SCH ×2 (08:44→20:00)
[2021-04-21] MEDS: ZESTRIL TAB 40 MG PO SCH (08:44)
[2021-04-21] MEDS: ELIQUIS PO SCH ×2 (08:47→20:00)
[2021-04-21] MEDS: VITAMIN A PO SCH (08:48)
[2021-04-21] MEDS: K-DUR TAB 20 MEQ PO SCH ×2 (08:49→22:23)
[2021-04-21] MEDS: BROVANA IN SCH ×2 (09:52→21:00)
[2021-04-21] MEDS: PULMICORT NEB TX 0.5 MG NEB SCH ×2 (09:52→21:00)
[2021-04-21] MEDS ORDERED: D5W 1000 ML IV 1,000 ML with POTASSIUM CHLORIDE INJ 40 MEQ VIAL 40 MEQ IV SCH ×2 (13:00)
[2021-04-21] MEDS: D5W 1000 ML IV 1,000 ML IV SCH (14:28)
[2021-04-21] MEDS: NORVASC TAB 5 MG PO SCH (20:00)
[2021-04-21] MEDS: MELATONIN PO SCH (20:00)
[2021-04-21] MEDS: VENTOLIN or PROAIR HFA IN SCH (22:52)
[2021-04-22 06:17] LABS: BASOPHILS % (AUTO) 0.5 % (0.2-1.0); EOSINOPHILS # (AUTO) 0.3 x10^3/uL (0.0-0.2); EOSINOPHILS % (AUTO) 2.9 % (0.9-2.9); HEMATOCRIT 37.3 % (36.0-47.0); HEMOGLOBIN 12.5 g/dL (12.0-16.0); LYMPHOCYTES # (AUTO) 1.4 X10^3/uL (1.3-2.9); LYMPHOCYTES % (AUTO) 14.8 % (21.0-51.0); MEAN CORPUSCULAR HEMOGLOBIN 29.3 pg (27.0-34.0); MEAN CORPUSCULAR HGB CONC 33.5 g/dL (33.0-35.0); MEAN CORPUSCULAR VOLUME 87.5 fL (80.0-100.0); MEAN PLATELET VOLUME 10.2 fL (7.4-11.0); MONOCYTES # (AUTO) 0.9 x10^3/uL (0.3-0.8); MONOCYTES % (AUTO) 9.5 % (0.0-13.0); NEUTROPHILS # (AUTO) 6.8 x10^3/uL (2.2-4.8); NEUTROPHILS % (AUTO) 72.3 % (42.0-75.0); PLATELET COUNT 90 X10^3/uL (150.0-450.0); RED BLOOD COUNT 4.26 X10^6/uL (3.5-5.4); RED CELL DISTRIBUTION WIDTH 15.7 % (11.6-16.5); WHITE BLOOD COUNT 9.3 X10^3/uL (3.6-10.0)
[2021-04-22 06:28] LABS: ALANINE AMINOTRANSFERASE 137 Units/L (12-78); ALBUMIN 2.6 g/dL (3.4-5.0); ALKALINE PHOSPHATASE 93 Units/L (46-116); ASPARTATE AMINO TRANSFERASE 38 Units/L (15-37); BLOOD UREA NITROGEN 13 mg/dL (7-18); CARBON DIOXIDE 29.5 mmol/L (21-32); CHLORIDE 104 mmol/L (98-107); COR CA(FOR HYPOALB) 9.1 mg/dL (8.5-10.1); CREATININE 0.75 mg/dL (0.55-1.02); SODIUM 139 mmol/L (136-145); TOTAL PROTEIN 5.1 g/dL (6.4-8.2); eGFR NON BLACK RACES > 60 (>60)
[2021-04-22] MEDS: GLUCOPHAGE XR 24-HR PO SCH ×2 (09:12→21:55)
[2021-04-22] MEDS: ACTOS PO SCH (09:12)
[2021-04-22] MEDS: PEPCID TAB 40 MG PO SCH ×2 (09:12→21:56)
[2021-04-22] MEDS: PAXIL PO SCH (09:13)
[2021-04-22] MEDS: ELIQUIS PO SCH ×2 (09:13→21:55)
[2021-04-22] MEDS: VENTOLIN or PROAIR HFA IN SCH ×2 (09:13→21:05)
[2021-04-22] MEDS: K-DUR TAB 20 MEQ PO SCH ×2 (09:14→21:56)
[2021-04-22] MEDS: VITAMIN C PO SCH ×2 (09:14→21:57)
[2021-04-22] MEDS: ZETIA TAB 10 MG PO SCH (09:15)
[2021-04-22] MEDS: VITAMIN D3 125 mcg (5,000 UNITS) PO SCH (09:15)
[2021-04-22] MEDS: BROVANA IN SCH ×2 (09:15→21:05)
[2021-04-22] MEDS: ASPIRIN EC 81 MG PO SCH (09:16)
[2021-04-22] MEDS: BUSPAR PO SCH ×2 (09:16→21:55)
[2021-04-22] MEDS: PREDNISONE TAB 20 MG PO SCH (09:17)
[2021-04-22] MEDS: ZESTRIL TAB 40 MG PO SCH ×2 (09:17→09:18)
[2021-04-22] MEDS: PULMICORT NEB TX 0.5 MG NEB SCH ×2 (09:20→21:05)
[2021-04-22] MEDS: VITAMIN A PO SCH (10:41)
[2021-04-22] MEDS: ZINC SULFATE PO SCH ×2 (10:41→21:57)
[2021-04-22] MEDS: D5W 1000 ML IV 1,000 ML IV SCH (13:31)
[2021-04-22] MEDS ORDERED: NS IRRIGATION* 1,000 ML 1,000 ML IR ONE (17:55)
[2021-04-22] MEDS ORDERED: BETADINE SOLN TOP SCH (18:00)
[2021-04-22] MEDS: NORVASC TAB 5 MG PO SCH (21:56)
[2021-04-22] MEDS: MELATONIN PO SCH (21:56)
[2021-04-23 06:37] LABS: BASOPHILS % (AUTO) 0.2 % (0.2-1.0); EOSINOPHILS # (AUTO) 0.4 x10^3/uL (0.0-0.2); EOSINOPHILS % (AUTO) 4.3 % (0.9-2.9); HEMATOCRIT 37.9 % (36.0-47.0); HEMOGLOBIN 12.7 g/dL (12.0-16.0); LYMPHOCYTES # (AUTO) 1.1 X10^3/uL (1.3-2.9); MEAN CORPUSCULAR HEMOGLOBIN 29.4 pg (27.0-34.0); MEAN CORPUSCULAR HGB CONC 33.4 g/dL (33.0-35.0); MEAN CORPUSCULAR VOLUME 87.9 fL (80.0-100.0); MEAN PLATELET VOLUME 10.2 fL (7.4-11.0); MONOCYTES # (AUTO) 0.9 x10^3/uL (0.3-0.8); MONOCYTES % (AUTO) 9.2 % (0.0-13.0); NEUTROPHILS # (AUTO) 7.3 x10^3/uL (2.2-4.8); NEUTROPHILS % (AUTO) 75.3 % (42.0-75.0); PLATELET COUNT 80 X10^3/uL (150.0-450.0); RED BLOOD COUNT 4.31 X10^6/uL (3.5-5.4); RED CELL DISTRIBUTION WIDTH 15.3 % (11.6-16.5); WHITE BLOOD COUNT 9.6 X10^3/uL (3.6-10.0)
[2021-04-23 06:56] LABS: ALANINE AMINOTRANSFERASE 142 Units/L (12-78); ALBUMIN 2.7 g/dL (3.4-5.0); ALKALINE PHOSPHATASE 104 Units/L (46-116); ASPARTATE AMINO TRANSFERASE 40 Units/L (15-37); BLOOD UREA NITROGEN 15 mg/dL (7-18); CALCIUM 7.9 mg/dL (8.5-10.1); CHLORIDE 105 mmol/L (98-107); COR CA(FOR HYPOALB) 8.9 mg/dL (8.5-10.1); CREATININE 0.81 mg/dL (0.55-1.02); SODIUM 140 mmol/L (136-145); TOTAL PROTEIN 5.2 g/dL (6.4-8.2); eGFR NON BLACK RACES > 60 (>60)
[2021-04-23] MEDS: VITAMIN A PO SCH (08:35)
[2021-04-23] MEDS: ZINC SULFATE PO SCH (08:35)
[2021-04-23] MEDS: VITAMIN C PO SCH (08:36)
[2021-04-23] MEDS: BUSPAR PO SCH (08:36)
[2021-04-23] MEDS: ACTOS PO SCH (08:36)
[2021-04-23] MEDS: ASPIRIN EC 81 MG PO SCH (08:36)
[2021-04-23] MEDS: PEPCID TAB 40 MG PO SCH (08:37)
[2021-04-23] MEDS: PAXIL PO SCH (08:37)
[2021-04-23] MEDS: GLUCOPHAGE XR 24-HR PO SCH (08:37)
[2021-04-23] MEDS: ELIQUIS PO SCH (08:37)
[2021-04-23] MEDS: K-DUR TAB 20 MEQ PO SCH (08:37)
[2021-04-23] MEDS: ZESTRIL TAB 40 MG PO SCH (08:38)
[2021-04-23] MEDS: ZETIA TAB 10 MG PO SCH (08:38)
[2021-04-23] MEDS: VITAMIN D3 125 mcg (5,000 UNITS) PO SCH (08:38)
[2021-04-23] MEDS: PREDNISONE TAB 20 MG PO SCH (08:38)
[2021-04-23] MEDS: BROVANA IN SCH (09:00)
[2021-04-23] MEDS: PULMICORT NEB TX 0.5 MG NEB SCH (09:00)
[2021-04-23 13:24] VITALS: BP 101/54
== END 2021-04-23 14:26 | disposition home health service (06) | DRG 177 ==
LOC: ER 12:59 → ICU 17:12 → MED/SURG 04-19 18:15
PROVIDERS: ADMIT Internal Medicine; ATTEND Internal Medicine
DX: R19.7 Diarrhea, unspecified; E87.0 Hyperosmolality and hypernatremia; R26.89 Other abnormalities of gait and mobility; I10 Essential (primary) hypertension; Z78.1 Physical restraint status; J12.82 Pneumonia due to coronavirus disease 2019; R94.5 Abnormal results of liver function studies; R79.82 Elevated C-reactive protein (CRP); J96.01 Acute respiratory failure with hypoxia; U07.1 COVID-19; E87.6 Hypokalemia; R45.1 Restlessness and agitation; R41.82 Altered mental status, unspecified